=== PATIENT | female | born 1955 | race Caucasian/White ===

== ENCOUNTER 2016-10-06 19:55 | Emergency (ER) | payer MEDICARE, OTHER ==
[2016-10-06] MEDS ORDERED: KETOROLAC TROMETHAMINE 30 MG/ML VIAL IV ONE (20:42)
[2016-10-06] MEDS ORDERED: NORMAL SALINE 1,000 ML IV ONE (20:42)
[2016-10-06] MEDS ORDERED: ONDANSETRON HCL/PF 2 MG/ML VIAL IV ONE (20:43)
[2016-10-06 20:45] LABS: Urine Appearance Clear; Urine Bilirubin Negative (NEGATIVE); Urine Blood Negative /ul (NEGATIVE); Urine Color Yellow; Urine Ketone Negative (NEGATIVE); Urine Nitrite Negative (NEGATIVE); Urine Protein Negative (NEGATIVE); Urine Specific Gravity 1.025 SP.GR. (1.005-1.010); Urine Urobilinogen Normal (NORMAL); Urine pH 6.5 pH (5.0-7.0)
--- OUTSIDE RECORDS SUMMARY | 2016-10-06 20:45 | XMS REPORT | Continuity of Care Document ---
:1955 Author Organization [facility] ([facility]) Address [address] [place] [address] Phone [phone] Care Team Providers Name Role Phone Jam Sam Primary Care Provider [phone] Source Comments This disclosure is being made pursuant to the Care Everywhere program, applicable federal and state laws, and may not contain all informaitonavailable regarding this patient.[facility] ([facility]) Active Allergies and Adverse Reactions Allergen Noted Date Severity Reactions Comments Ciprofloxacin Pruritus Current Medications Not on file Active Problems Problem Noted Date Pain in joint, ankle and foot 01/21/2008 Knee joint replacement by other means 02/19/2007 Tobacco use disorder 01/12/2007 Difficulty in walking(719.7) 01/10/2007 Primary localized osteoarthrosis, lower leg 01/04/2005 Pain in joint, lower leg 11/19/2004 Social History Tobacco Use Types Packs/Day Years Used Date Never Assessed Last Filed Vital Signs Vital Sign Reading Time Taken Blood Pressure 115/64 01/21/2008 10:30 AM CDT Pulse 74 01/21/2008 10:30 AM CDT Temperature 35.3 C (95.54 F) 01/21/2008 10:30 AM CDT Respiratory Rate 18 01/12/2007 8:00 AM CDT Height 1.685 m (5' 6.33") 01/21/2008 10:30 AM CDT Weight 101.497 kg (223 lb 12.2 oz) 01/21/2008 10:30 AM CDT Body Mass Index 35.75 01/21/2008 10:30 AM CDT Oxygen Saturation - - Plan of Care Health Maintenance Due Date Last Done Comments HCV Screening 1955 Hepatitis B Vaccine (1 of 3 - Primary Series) 1955 Tdap Vaccine 02/15/1964 Lipid Disorder Screening 1971 Td Vaccine 1971 Cervical Cancer Screening 1983 Mammogram 1993 Colonoscopy 2003 Zoster Vaccine 2013 Influenza Vaccine: Seasonal (#1) 02/19/2016 Results from Last 3 Months Not on file
[2016-10-06 20:46] LABS: Urine Bacteria None Seen; Urine RBC 0-5 /hpf (0-5); Urine WBC None Seen /hpf (0-5)
--- NOTE | 2016-10-06 20:52 | ERNOTE ---
Back Pain ER HPI Date of Service: 10/06/16 Presenting Symptoms: other - right lower flank pain radiating into right groin Time Seen by Provider: 10/06/16 20:31 Source: patient Exam Limitations: no limitations Immunizations: IMMUNIZATION HX Immunizations Up to Date Yes History of Influenza Vaccine Yes Hx Pneumococcal Vaccination Yes Allergies/Adverse Reactions: Allergies ciprofloxacin HCl [From Cipro] Allergy (Mild, Verified 05/27/16 08:53) hot and itching Home Medications: HOME MEDICATIONS Benazepril HCl [Lotensin] 40 mg PO DAILY 01/30/13 [Last Taken 03/05/14 08:00] DULoxetine HCL [Cymbalta] 60 mg PO DAILY 01/30/13 [Last Taken 03/05/14 08:00] amLODIPine BESYLATE [Norvasc] 5 mg PO DAILY 01/30/13 [Last Taken 03/05/14 08:00] Cholecalciferol (Vitamin D3) [Vitamin D3] 1,000 unit PO BID 07/09/13 [Last Taken 03/05/14 20:00] Simvastatin 40 mg PO DAILY 07/09/13 [Last Taken 03/05/14 20:00] Cyclosporine [Restasis] 1 each OP BID 03/05/14 [Last Taken 03/05/14 20:00] Pramipexole Di-HCl [Mirapex] 0.5 mg PO DAILY 03/05/14 [Last Taken 03/05/14 08:00 ] Acetaminophen [Tylenol] 650 mg PO Q4H PRN #0 tablet 03/07/14 [Last Taken Unknown ] Omeprazole [Prilosec] 20 mg PO BID #0 03/07/14 [Last Taken 03/05/14 08:00] metFORMIN HCL [Glucophage] 500 mg PO BID 03/07/14 [Last Taken 05/25/16] Pregabalin [Lyrica] 75 mg PO TID 12/21/14 [Last Taken Unknown] Fluticasone/Salmeterol [Advair 250-50 Diskus] 1 puff IH BID 05/24/16 [Last Taken Unknown] Topiramate [Topamax] 100 mg PO DAILY 05/24/16 [Last Taken Unknown] Diclofenac Sodium 75 mg PO DAILY 05/25/16 [Last Taken Unknown] Dicyclomine HCl [Bentyl] 20 mg PO TID PRN 05/25/16 [Last Taken Unknown] Hydrocodone/Acetaminophen [Hydrocodon-Acetaminoph 7.5-325] 1 each PO Q6H PRN 12/03 [Last Taken Unknown] Levothyroxine Sodium [Synthroid] 200 mcg PO DAILY 05/25/16 [Last Taken Unknown] Cyclobenzaprine HCl [Flexeril] 10 mg PO TID PRN #30 tab 10/06/16 [Last Taken Unknown] - Pain Score Pain Score #1 Pain Score: 8 Narrative: This is a 61 year old female with known history of DM2 currently on Metformin BID and HTN who recently had appendix removed May 2016 [facility] with complaints of pain right lower flank area radiating into right groin x 1 week. States pain has been progressively getting worse. Patient denies NVD, fever, chills yet complains of pain, urinary frequency and odor. States pain worsens with movement and has attempted ice, heat, [place] (used for her chronic pain), Tylenol and ice hot without relief. Date (Duration): 09/29/16 Timing: Reports: constant, getting worse Quality/Severity: Reports: moderate, aching, dullness, throbbing Location of pain: Reports: lower back, other - radiating down into right groin Activities at Onset: Reports: none Recent Injury?: Reports: no Possible Precipitating Factor: Reports: none Modifying Factors - (Improves): Reports: nothing Modifying Factors - (Worsens): Reports: other - movement and activity Associated Symptoms: Reports: problems urinating. Denies: fever/chills, sweating, constipation/incontinence, nausea/vomiting, difficulty walking, lightheadedness, numbess/weakness in legs Review of Systems - Review of Systems Constitutional: Present: no symptoms reported. Absent: recent illness, fever, chills, diaphoresis, weakness, fatigue, malaise EYE: Present: no symptoms reported ENT: Present: no symptoms reported Respiratory: Present: no symptoms reported. Absent: shortness of breath, cough Cardiology: Present: no symptoms reported. Absent: chest pain, palpitations, syncope Gastrointestinal/Abdominal: Absent: nausea, vomiting, diarrhea, constipation, abdominal pain, eating less, drinking less Genitourinary: Present: frequency, other - worsening odor. Absent: pain, dysuria, hematuria, decreased urinary output Musculoskeletal: Present: back pain. Absent: muscle pain, muscle stiffness, neck pain, joint pain, joint swelling Skin: Present: no symptoms reported. Absent: rash, dryness, lesions Neurological: Present: no symptoms reported Endocrine: Present: no symptoms reported Hematologic/Lymphatic: Present: no symptoms reported - Patient's Past Medical History Patient History - Medical: Diabetes Type 2, GERD, Hypothyroidism, UTI'S Patient History - Cardiac/Respiratory: Asthma, Bronchitis, COPD, Hypertension, Hyperlipidemia Patient History - Cancer: No Hx of Cancer Patient History - Surgical Procedures: Cholecystectomy, Total Knee Replacement, Other Patient History - Other: None - Family History Mother Family History - Medical: No pertinent hx Family History - Cardiac/Respiratory: No pertinent hx Father Family History - Medical: No pertinent hx Family History - Cardiac/Respiratory: No pertinent hx - Social History Living Situations: alone Abuse History: No History of abuse Psych History: No pertinent hx Does anyone smoke in the home?: Yes Smoking Status: Former smoker Have you smoked in the past 12 months: Yes Do you dip or chew tobacco: No Patient requests Smoking Cessation Consult: No Initiate information on Smoking Cessation: No Alcohol Use: none Drug Use: none - Immunizations Immunizations Up to Date: Yes Hx Pneumococcal Vaccination: Yes History of Influenza Vaccine: Yes Physical Exam - Physical Exam General Appearance: Present: wd/wn, alert, no apparent distress Eye Exam: Normal inspection: bilateral, PERRL: bilateral Neck: Present: normal inspection, nontender Respiratory: Present: no respiratory distress, normal breath sounds, no accessory muscle use, chest nontender, lungs clear Cardiovascular/Chest: Present: regular rate, rhythm, no murmur, normal peripheral pulses Peripheral Pulses: N=norm/S=strong/W=weak/B=bound/A=absent: Radial (R): Normal, Radial (L): Normal Gastrointestinal/Abdominal: Present: normal bowel sounds, nontender, nondistended, soft, no organomegaly Rectal Exam: Present: deferred Back Exam: Present: normal inspection, normal range of motion, no vertebral tenderness, CVA tenderness (R) Extremity Exam: Present: normal inspection, non-tender, normal range of motion, no edema Neurological Exam: Present: alert, oriented, normal mood/affect, no motor/ sensory deficits Skin Exam: Present: normal color, warm/dry Lymphatic Exam: Present: no adenopathy ED Progress - Results and Orders Patient's Lab Results:: I have reviewed the patient's lab results. - Vital Signs Patient's Vital Signs:: I have reviewed the patient's vital signs. Vital Signs: Vital Signs 10/06/16 20:10 Temperature 36.7 C Pulse Rate 97 Respiratory 18 Rate Blood Pressure 141/79 O2 Sat by Pulse 97 Oximetry - CT/Ultrasound CT/Ultrasound Narrative: CT abdomen and pelvis negative. Diverticulosis without evidence of diverticulitis, no kidney stone - Progress/Reassessment Chief Complaint: Back Pain Progress:: Improved Progress Note-Subjective: 10/06/16 21:[address] scan. No change in condition, awaiting for RN to administer pain medications 10/06/16 22:03 Patient states pain has lessened. Departure Clinical Impression: Lumbago with sciatica, right side Qualifiers: Chronicity: acute Back pain laterality: right Qualified Code(s): M54.41 - Lumbago with sciatica, right side - Departure Disposition: Home self-care Condition: Good Instructions: Back Pain, Adult, [id number], Muscle Strain, [id number] Additional Instructions: Continue with Ibuprofen 800 mg as previously prescribed. Follow up with physician for worsening pain unrelieved by Ibuprofen or Flexeril Referrals: Manuel Valencia DO [Primary Care Provider] - Prescriptions: Cyclobenzaprine HCl [Flexeril] 10 mg PO TID PRN #30 tab PRN Reason: MUSCLE SPASMS
[2016-10-06 20:54] LABS: Hematocrit 40.1 % (37.0-47.0); Hemoglobin 12.6 gm/dL (12.5-16.0); Mean Cell Volume 85.9 fl (78-100); Mean Corpuscular Hgb Conc 31.4 g/dl (32-36); Mean Platelet Volume 8.9 fl (6.0-9.5); Neutrophil % 60.8 % (42-75.0); Platelet Count 340 K/mm3 (150-450); Red Blood Count 4.67 M/mm3 (4.2-5.4); Red Cell Distribution Width 15.5 % (11.5-14.0); White Blood Count 9.9 K/mm3 (4.0-10.5)
[2016-10-06 21:09] LABS: Albumin * 3.6 gm/dl (3.4-5.0); Bilirubin, Total 0.2 mg/dL (0.0-1.1); Ca. Corrected For Albumin 9.3 mg/dL (8.4-10.2); Calcium * 9.3 mg/dL (7.9-10.9); Carbon Dioxide 24.9 mmol/L (24-32.6); Potassium 3.9 mmol/L (3.4-4.6); Total Protein 7.1 gm/dL (6.2-8.2)
[2016-10-06] MEDS ORDERED: KETOROLAC TROMETHAMINE 30 MG/ML VIAL ONE (21:24)
[2016-10-06] MEDS ORDERED: ONDANSETRON HCL/PF 2 MG/ML VIAL ONE (21:25)
[2016-10-06 21:41] VITALS: BP 158/88
[2016-10-06] MEDS ORDERED: CYCLOBENZAPRINE HCL 10 MG TABLET PO ONE (22:03)
[2016-10-06] MEDS ORDERED: CYCLOBENZAPRINE HCL 10 MG TABLET ONE (22:08)
== END 2016-10-06 22:36 | disposition home or self-care (01) ==
LOC: ER 19:55
DX: M54.41 Lumbago with sciatica, right side (principal); E11.9 Type 2 diabetes mellitus without complications; I10 Essential (primary) hypertension; E78.5 Hyperlipidemia, unspecified; E03.9 Hypothyroidism, unspecified; K21.9 Gastro-esophageal reflux disease without esophagitis

== ENCOUNTER 2016-11-18 07:38 | Day surgery (SDC) | payer MEDICARE, OTHER ==
[~2016-11-18 07:38] MED LIST: RINGERS SOLUTION,LACTATED 1,000 ML IV PRN
--- OUTSIDE RECORDS SUMMARY | 2016-11-18 07:42 | XMS REPORT | Continuity of Care Document ---
:1955 Author Organization [facility] ([facility]) Address [address] [place] [address] Phone [phone] Care Team Providers Name Role Phone Jam Sam Primary Care Provider [phone] Source Comments This disclosure is being made pursuant to the Care Everywhere program, applicable federal and state laws, and may not contain all informaitonavailable regarding this patient.[facility] ([facility]) Active Allergies and Adverse Reactions Allergen Noted [...]
[2016-11-18] MEDS ORDERED: RINGERS SOLUTION,LACTATED 1,000 ML IV ONE (08:11)
[2016-11-18] MEDS ORDERED: RINGERS SOLUTION,LACTATED 1,000 ML IV PRN (09:54)
[2016-11-18 10:53] VITALS: BP 162/89
--- NOTE | 2016-11-18 17:37 | OR ---
Operative Report - Dictated Report Narrative: OPERATIVE REPORT DATE OF OPERATION: 11/18/2016 PREOPERATIVE DIAGNOSIS: No recent dedicated colon studies. Diarrhea. POSTOPERATIVE DIAGNOSIS: Diverticulosis OPERATION: Colonoscopy SURGEON: Nasir Marin MD ANESTHESIA: KEVIN Rios CRNA INDICATIONS FOR PROCEDURE: The patient is a 61-year-old female referred by Dr. Valencia. The patient's last colonoscopy was in 2007. There is no family history of colon cancer. She has chronic loose stools managed with cholestyramine. FINDINGS: Diverticulosis, somewhat capacious colon otherwise normal exam to the cecum NARRATIVE OF PROCEDURE: The patient was identified in the holding area, and prior to the administration of anesthetic, a multidisciplinary timeout was observed. With the patient in the left lateral position and after the administration of intravenous sedation, the perineum was inspected. There was mild perianal maceration however no evidence of pilonidal disease or rosy skin breakdown. The external appearance of the anus was normal. Sphincter tone was good. The flexible fiberoptic colonoscope was inserted into the rectum which was insufflated with air. The rectal mucosa and submucosal vascular pattern appeared normal, the prep was seen to be complete. The scope was advanced through the sigmoid colon, which contained several small scattered non-impacted noninflamed diverticular openings. The scope was advanced up the descending colon, and around the splenic flexure where the triangular haustral architecture of the transverse colon was seen. The scope was advanced across the transverse colon, around the hepatic flexure to the cecum, where the confluence of tenia and the ileocecal valve were identified. The mucosa at this level appeared normal. The scope was then slowly withdrawn in a circular fashion so that all aspects of colonic mucosa were inspected. The colon was somewhat capacious in character but normal in course. The haustral architecture appeared well preserved throughout with no evidence of external compression. The mucosa and submucosal vascular pattern appeared normal, specifically there was no gross evidence to suggest colitis or inflammatory bowel disease and no AV malformations were seen. The diverticulosis was mild in degree confined primarily to the sigmoid colon. No polyps were encountered. The scope was gradually withdrawn to the level of the rectum. As much insufflated air as possible was removed. The scope was withdrawn from the patient and the procedure terminated. The patient tolerated the anesthetic and procedure well without complication and was transferred back to the ambulatory surgery area awake and in stable condition. The patient remained stable throughout a period of postoperative observation. She denied abdominal discomfort, was able to tolerate by mouth intake, and was up without assistance. I shared the operative findings with the patient and she was given copies of the photographs which appear in the medical record. She was discharged home with instructions not to engage in hazardous activity today , but may resume normal activity tomorrow, and advance diet as tolerated. She is to continue those medications as listed in the history and physical exam. RECOMMENDATION: Colon surveillance in 10 years depending upon findings and symptoms. Reviewed and electronically signed
== END 2016-11-18 07:39 | disposition home or self-care (01) ==
LOC: AMB 07:38
PROVIDERS: ATTEND Surgery
PROC: 0DJD8ZZ Inspection of Lower Intestinal Tract, Via Natural or Artificial Opening Endoscopic (ICD-10-PCS; principal; 2016-11-18 09:00)
DX: Z12.11 Encounter for screening for malignant neoplasm of colon (principal); K57.30 Diverticulosis of large intestine without perforation or abscess without bleeding; E11.9 Type 2 diabetes mellitus without complications; I10 Essential (primary) hypertension; E78.5 Hyperlipidemia, unspecified; E03.9 Hypothyroidism, unspecified; K58.9 Irritable bowel syndrome, unspecified; Z87.891 Personal history of nicotine dependence; Z68.38 Body mass index [BMI] 38.0-38.9, adult

== ENCOUNTER 2016-11-26 19:25 | Emergency (ER) | payer MEDICARE, OTHER ==
--- OUTSIDE RECORDS SUMMARY | 2016-11-26 20:13 | XMS REPORT | Continuity of Care Document ---
:1955 Author Organization [facility] ([facility]) Address [address] [place] [address] Phone [phone] Care Team Providers Name Role Phone Jam Sam Primary Care Provider [phone] Source Comments This disclosure is being made pursuant to the Care Everywhere program, applicable federal and state laws, and may not contain all informaitonavailable regarding this patient.[facility] ([facility]) Active Allergies and Adverse Reactions Allergen [...]
--- NOTE | 2016-11-26 20:15 | ERNOTE ---
Abdominal HPI - General Chief Complaint: Abdominal Pain Time Seen by Provider: 11/26/16 20:06 Source: patient Exam Limitations: no limitations - Immun/Allergies/Home Medications Immunizatons: IMMUNIZATION HX Immunizations Up to Date Yes History of Influenza Vaccine Yes Hx Pneumococcal Vaccination Yes Allergies/Adverse Reactions: Allergies ciprofloxacin HCl [From Cipro] Allergy (Mild, Verified 11/18/16 08:10) hot and itching Home Medications: HOME MEDICATIONS Benazepril HCl [Lotensin] 40 mg PO DAILY 01/30/13 [Last Taken 03/05/14 08:00] amLODIPine BESYLATE [Norvasc] 5 mg PO DAILY 01/30/13 [Last Taken 03/05/14 08:00] Cholecalciferol (Vitamin D3) [Vitamin D3] 50,000 unit PO Q7D 07/09/13 [Last Taken 03/05/14 20:00] Simvastatin 40 mg PO DAILY 07/09/13 [Last Taken 03/05/14 20:00] Cyclosporine [Restasis] 1 each OP BID 03/05/14 [Last Taken 03/05/14 20:00] Omeprazole [Prilosec] 20 mg PO BID #0 03/07/14 [Last Taken 03/05/14 08:00] metFORMIN HCL [Glucophage] 500 mg PO BID 03/07/14 [Last Taken 05/25/16] Pregabalin [Lyrica] 75 mg PO TID 12/21/14 [Last Taken Unknown] Fluticasone/Salmeterol [Advair 250-50 Diskus] 1 puff IH BID 05/24/16 [Last Taken 11/18/16 07:00] Topiramate [Topamax] 100 mg PO DAILY 05/24/16 [Last Taken Unknown] Diclofenac Sodium 75 mg PO DAILY 05/25/16 [Last Taken Unknown] Dicyclomine HCl [Bentyl] 20 mg PO TID PRN 05/25/16 [Last Taken Unknown] HYDROcodone/ACETAMINOPHEN [Hydrocodon-Acetaminoph 7.5-325] 1 each PO Q12H PRN [Last Taken Unknown] Cholestyramine (with Sugar) [Questran Powder] 4 gm PO BID 11/08/16 [Last Taken Unknown] Duloxetine HCl [Cymbalta] 60 mg PO BID 11/08/16 [Last Taken Unknown] Levothyroxine Sodium [Synthroid] 200 mcg PO DAILY 11/08/16 [Last Taken Unknown] Pramipexole Di-HCl [Pramipexole Dihydrochloride] 1 mg PO HS 11/08/16 [Last Taken Unknown] Cyclobenzaprine HCl [Flexeril] 10 mg PO TID PRN 11/26/16 [Last Taken Unknown] Nitrofurantoin Macrocrystal [Nitrofurantoin] 100 mg PO BID #6 capsule 11/27/16 [ Last Taken Unknown] - History of Present Illness Narrative: Pt reports low abdominal pain x 2 days. Had severe UTI 2 weeks ago and finished her antibiotics today. She believes she has gotten worse Timing: getting worse Quality: moderate Activities at Onset: none Associated Symptoms: Present: chest pain - right sided achy and sharp, shortness of breath. Absent: diaphoresis, fever/chills Prior Abdominal Problems: Present: similar symptoms Prior Treatment: Present: recently seen, treated by physician - UTI - Patient's Past Medical History Patient History - Medical: Diabetes Type 2, GERD, Hypothyroidism, UTI'S, Other Patient History - Cardiac/Respiratory: Asthma, Bronchitis, COPD, Hypertension, Hyperlipidemia Patient History - Cancer: No Hx of Cancer Patient History - Surgical Procedures: Cataracts, Cholecystectomy, Colonoscopy, D & C, EGD, Hysterectomy, Total Knee Replacement, Other Patient History - Other: None - Family History Mother Family History - Medical: , Arthritis Family History - Cardiac/Respiratory: Hypertension Family History - Cancer: No pertinent family hx Father Family History - Medical: , Arthritis Family History - Cardiac/Respiratory: CVA/Stroke, Hypertension Family History - Cancer: No pertinent family hx Brother Family History - Medical: , Diabetes Type 2, Other Family History - Cardiac/Respiratory: No pertinent hx Family History - Cancer: No pertinent family hx Grandfather-Maternal Family History - Medical: History Unknown Family History - Cardiac/Respiratory: History Unknown Family History - Cancer: History Unknown Grandfather-Paternal Family History - Medical: , History Unknown Family History - Cardiac/Respiratory: History Unknown Family History - Cancer: History Unknown Grandmother-Maternal Family History - Medical: , History Unknown Family History - Cardiac/Respiratory: History Unknown Family History - Cancer: Esophageal Grandmother-Paternal Family History - Medical: , History Unknown Family History - Cardiac/Respiratory: History Unknown Family History - Cancer: History Unknown Sister Family History - Medical: Other Family History - Cardiac/Respiratory: No pertinent hx Family History - Cancer: No pertinent family hx - Social History Living Situations: alone Abuse History: No History of abuse Psych History: Hx of Depression Does anyone smoke in the home?: Yes Smoking Status: Former smoker Have you smoked in the past 12 months: Yes Do you dip or chew tobacco: No Patient requests Smoking Cessation Consult: No Initiate information on Smoking Cessation: No Alcohol Use: none Drug Use: other - Immunizations Immunizations Up to Date: Yes Hx Pneumococcal Vaccination: Yes History of Influenza Vaccine: Yes ED Progress - Vital Signs Vital Signs: Vital Signs 11/26/16 19:25 Temperature 36.5 C Pulse Rate 108 H Respiratory 18 Rate Blood Pressure 157/60 O2 Sat by Pulse 96 Oximetry - Progress/Reassessment Chief Complaint: Abdominal Pain Departure - Departure Clinical Impression: UTI (urinary tract infection), bacterial Disposition: Home Follow Up Needed Condition: Good Instructions: Urinary Tract Infection, Adult, [id number] Referrals: Jackeline Lock, COIL [employer]TER [Primary Care Provider] - Prescriptions: Nitrofurantoin Macrocrystal [Nitrofurantoin] 100 mg PO BID #6 capsule
[2016-11-26 20:27] LABS: Hematocrit 38.3 % (37.0-47.0); Hemoglobin 11.9 gm/dL (12.5-16.0); Mean Cell Volume 85.5 fl (78-100); Mean Corpuscular Hemoglobin 26.6 pg (27-31); Mean Corpuscular Hgb Conc 31.1 g/dl (32-36); Neutrophil # 6.7 K/mm3 (1.3-6.0); Neutrophil % 65.5 % (42-75.0); Platelet Count 369 K/mm3 (150-450); Red Blood Count 4.48 M/mm3 (4.2-5.4); Red Cell Distribution Width 14.6 % (11.5-14.0); White Blood Count 10.3 K/mm3 (4.0-10.5)
[2016-11-26 20:40] LABS: Albumin * 3.1 gm/dl (3.4-5.0); Anion Gap 14.9 mmol/L (6.8-13.8); BUN/Creatinine Ratio 15.6 (9.0-21.6); Bilirubin, Total 0.2 mg/dL (0.0-1.1); Ca. Corrected For Albumin 9.7 mg/dL (8.4-10.2); Calcium * 9.3 mg/dL (7.9-10.9); Potassium 3.9 mmol/L (3.4-4.6); Total Protein 6.9 gm/dL (6.2-8.2)
[2016-11-26 20:44] LABS: Urine Bilirubin Negative (NEGATIVE); Urine Blood Negative /ul (NEGATIVE); Urine Ketone Negative (NEGATIVE); Urine Nitrite Negative (NEGATIVE); Urine Protein Negative (NEGATIVE); Urine Urobilinogen Normal (NORMAL); Urine pH 6.5 pH (5.0-7.0)
[2016-11-26 21:02] LABS: Urine Appearance Clear; Urine Bacteria 1+; Urine Color Yellow; Urine RBC None Seen /hpf (0-5); Urine WBC 0-5 /hpf (0-5)
[2016-11-26] MEDS ORDERED: NALBUPHINE HCL 20 MG/ML AMPUL IV ONE (23:15)
[2016-11-26] MEDS ORDERED: ONDANSETRON HCL/PF 2 MG/ML VIAL IV ONE (23:15)
[2016-11-26] MEDS ORDERED: ONDANSETRON HCL/PF 2 MG/ML VIAL ONE (23:28)
[2016-11-26] MEDS ORDERED: NALBUPHINE HCL 20 MG/ML AMPUL ONE (23:28)
[2016-11-27] MEDS ORDERED: NITROFURANTOIN/NITROFURAN MAC 100 MG CAPSULE ONE (01:13)
[2016-11-27 01:26] VITALS: BP 138/72
[2016-11-27] MEDS ORDERED: NITROFURANTOIN/NITROFURAN MAC 100 MG CAPSULE PO SCH (09:00)
== END 2016-11-27 01:20 | disposition home or self-care (01) ==
LOC: ER 19:25
DX: N39.0 Urinary tract infection, site not specified (principal); A49.9 Bacterial infection, unspecified; Z87.440 Personal history of urinary (tract) infections; Z87.891 Personal history of nicotine dependence; E11.9 Type 2 diabetes mellitus without complications; K21.9 Gastro-esophageal reflux disease without esophagitis; E03.9 Hypothyroidism, unspecified; J45.909 Unspecified asthma, uncomplicated; J44.9 Chronic obstructive pulmonary disease, unspecified; I10 Essential (primary) hypertension; E78.5 Hyperlipidemia, unspecified

== ENCOUNTER 2016-12-16 04:09 | Inpatient (IN) | payer MEDICARE, OTHER ==
--- OUTSIDE RECORDS SUMMARY | 2016-12-16 04:45 | XMS REPORT | Continuity of Care Document ---
:1955 Author Organization [facility] ([facility]) Address [address] [place] [place] [address] Phone [phone] Care Team Providers Name Role Phone Jam Sam Primary Care Provider [phone] Source Comments This disclosure is being made pursuant to the Care Everywhere program, applicable federal and state laws, and may not contain all informaitonavailable regarding this patient.[facility] ([facility]) Active Allergies and Adverse Reactions Allergen [...]
[2016-12-16] MEDS ORDERED: DILTIAZEM HCL 5 MG/ML VIAL IV ONE ×4 (05:09→06:27)
[2016-12-16 05:15] LABS: Hematocrit 40.1 % (37.0-47.0); Hemoglobin 12.5 gm/dL (12.5-16.0); Mean Cell Volume 85.7 fl (78-100); Mean Corpuscular Hemoglobin 26.7 pg (27-31); Mean Corpuscular Hgb Conc 31.2 g/dl (32-36); Mean Platelet Volume 8.9 fl (6.0-9.5); Neutrophil # 14.1 K/mm3 (1.3-6.0); Platelet Count 332 K/mm3 (150-450); Red Blood Count 4.68 M/mm3 (4.2-5.4); White Blood Count 18.1 K/mm3 (4.0-10.5)
[2016-12-16 05:25] LABS: Prothrombin Time (Patient) 10.1 Seconds (9.4-11.4)
[2016-12-16 05:28] LABS: INR 0.97 INR (0.90-1.10); Partial Thrombolplastin Time 27.8 Seconds (24-32)
[2016-12-16 05:37] LABS: ALT 22 U/L (19-67); AST 13 U/L (0-48); Albumin * 2.9 gm/dl (3.4-5.0); Alkaline Phosphatase * 149 U/L (50-170); Anion Gap 12.4 mmol/L (6.8-13.8); BNP * 292 pg/mL (5-205); Bilirubin, Total 0.3 mg/dL (0.0-1.1); Blood Urea Nitrogen 12 mg/dL (3-23); Ca. Corrected For Albumin 9.2 mg/dL (8.4-10.2); Calcium * 8.6 mg/dL (7.9-10.9); Carbon Dioxide 27.2 mmol/L (24-32.6); Chloride 108 mmol/L (97-106); Glucose * 177 mg/dL (70-110); Potassium 3.6 mmol/L (3.4-4.6); Sodium 144 mmol/L (132-142); TSH * 0.255 uIU/mL (0.358-3.74); Total Protein 6.8 gm/dL (6.2-8.2); Troponin I Less than 0.017 ng/ml (0.00-0.10)
[2016-12-16] MEDS ORDERED: ENOXAPARIN SODIUM 100 MG/ML SYRG SC ONE ×2 (05:50→06:35)
--- NOTE | 2016-12-16 05:53 | ERNOTE ---
Dyspnea - Date Date of Service: 12/16/16 - General Presenting Symptoms: shortness of breath Source: patient, family Exam Limitations: no limitations - Immun/Allergies/Home Medications Immunizations: IMMUNIZATION HX Immunizations Up to Date Yes History of Influenza Vaccine Yes Hx Pneumococcal Vaccination Yes Allergies/Adverse Reactions: Allergies ciprofloxacin HCl [From Cipro] Allergy (Mild, Verified 11/18/16 08:10) hot and itching Home Medications: HOME MEDICATIONS Benazepril HCl [Lotensin] 40 mg PO DAILY 01/30/13 [Last Taken 03/05/14 08:00] amLODIPine BESYLATE [Norvasc] 5 mg PO DAILY 01/30/13 [Last Taken 03/05/14 08:00] Cholecalciferol (Vitamin D3) [Vitamin D3] 50,000 unit PO Q7D 07/09/13 [Last Taken 03/05/14 20:00] Simvastatin 40 mg PO DAILY 07/09/13 [Last Taken 03/05/14 20:00] Cyclosporine [Restasis] 1 each OP BID 03/05/14 [Last Taken 03/05/14 20:00] Omeprazole [Prilosec] 20 mg PO BID #0 03/07/14 [Last Taken 03/05/14 08:00] metFORMIN HCL [Glucophage] 500 mg PO BID 03/07/14 [Last Taken 05/25/16] Pregabalin [Lyrica] 75 mg PO TID 12/21/14 [Last Taken Unknown] Fluticasone/Salmeterol [Advair 250-50 Diskus] 1 puff IH BID 05/24/16 [Last Taken 11/18/16 07:00] Topiramate [Topamax] 100 mg PO DAILY 05/24/16 [Last Taken Unknown] Diclofenac Sodium 75 mg PO DAILY 05/25/16 [Last Taken Unknown] Dicyclomine HCl [Bentyl] 20 mg PO TID PRN 05/25/16 [Last Taken Unknown] HYDROcodone/ACETAMINOPHEN [Hydrocodon-Acetaminoph 7.5-325] 1 each PO Q12H PRN [Last Taken Unknown] Cholestyramine (with Sugar) [Questran Powder] 4 gm PO BID 11/08/16 [Last Taken Unknown] Duloxetine HCl [Cymbalta] 60 mg PO BID 11/08/16 [Last Taken Unknown] Levothyroxine Sodium [Synthroid] 200 mcg PO DAILY 11/08/16 [Last Taken Unknown] Pramipexole Di-HCl [Pramipexole Dihydrochloride] 1 mg PO HS 11/08/16 [Last Taken Unknown] Cyclobenzaprine HCl [Flexeril] 10 mg PO TID PRN 11/26/16 [Last Taken Unknown] Amoxicillin/Potassium Clav [Augmentin 875-125 Tablet] 1 tab PO TID 12/16/16 [ Last Taken Unknown] - History of Present Illness Date (Duration): 12/16/16 Time (Timing): 05:04 Severity: moderate 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 Patient has not had symptoms similar to above. No known coronary artery disease but multiple cardiac risk factors including female greater than greater age 50, hypertension, diabetes, tobacco use and hyperlipidemia. Modifying Factors (Worsens): Reports: other Associated Symptoms-Dyspnea: Reports: other Prior Treatment: Reports: other Review of Systems - Review of Systems Constitutional: Present: no symptoms reported EYE: Present: no symptoms reported ENT: Present: no symptoms reported Respiratory: Present: shortness of breath Cardiology: Present: chest pain Gastrointestinal/Abdominal: Present: no symptoms reported Genitourinary: Present: no symptoms reported Musculoskeletal: Present: no symptoms reported Skin: Present: no symptoms reported Neurological: Present: no symptoms reported Endocrine: Present: no symptoms reported Hematologic/Lymphatic: Present: no symptoms reported Psych: Present: no symptoms reported - Patient's Past Medical History Patient History - Medical: Diabetes Type 2, GERD, Hypothyroidism, UTI'S, Other Patient History - Cardiac/Respiratory: Asthma, Bronchitis, COPD, Hypertension, Hyperlipidemia Patient History - Cancer: No Hx of Cancer Patient History - Surgical Procedures: Cataracts, Cholecystectomy, Colonoscopy, D & C, EGD, Hysterectomy, Total Knee Replacement, Other, Orthopedic Patient History - Other: None - Family History Mother Family History - Medical: , Arthritis Family History - Cardiac/Respiratory: Hypertension Family History - Cancer: No pertinent family hx Father Family History - Medical: , Arthritis Family History - Cardiac/Respiratory: CVA/Stroke, Hypertension Family History - Cancer: No pertinent family hx Brother Family History - Medical: , Diabetes Type 2, Other Family History - Cardiac/Respiratory: No pertinent hx Family History - Cancer: No pertinent family hx Grandfather-Maternal Family History - Medical: History Unknown Family History - Cardiac/Respiratory: History Unknown Family History - Cancer: History Unknown Grandfather-Paternal Family History - Medical: , History Unknown Family History - Cardiac/Respiratory: History Unknown Family History - Cancer: History Unknown Grandmother-Maternal Family History - Medical: , History Unknown Family History - Cardiac/Respiratory: History Unknown Family History - Cancer: Esophageal Grandmother-Paternal Family History - Medical: , History Unknown Family History - Cardiac/Respiratory: History Unknown Family History - Cancer: History Unknown Sister Family History - Medical: Other Family History - Cardiac/Respiratory: No pertinent hx Family History - Cancer: No pertinent family hx - Social History Living Situations: alone Abuse History: No History of abuse Psych History: Hx of Depression Does anyone smoke in the home?: Yes Smoking Status: Never smoker Alcohol Use: none Drug Use: none - Immunizations Immunizations Up to Date: Yes Hx Pneumococcal Vaccination: Yes History of Influenza Vaccine: Yes Physical Exam - Physical Exam General Appearance: Present: wd/wn, alert, moderate distress Eye Exam: Normal inspection: bilateral - normal ophthalmologic exam today, PERRL : bilateral, EOMI: bilateral Ears, Nose, Throat: Present: normal ENT inspection, normal pharynx Neck: Present: normal inspection, nontender Respiratory: Present: no accessory muscle use, lungs clear, wheezing Cardiovascular/Chest: Present: tachycardia, irregularly irregular Peripheral Pulses: N=norm/S=strong/W=weak/B=bound/A=absent: Carotid (R): Normal , Carotid (L): Normal, Radial (R): Normal, Radial (L): Normal, Dorsalis-pedis (R ): Normal, Dorsalis-pedis (L): Normal Gastrointestinal/Abdominal: Present: normal bowel sounds, nontender, nondistended, soft, no organomegaly Rectal Exam: Present: deferred Back Exam: Present: normal inspection, normal range of motion, no CVA tenderness , no vertebral tenderness Extremity Exam: Present: normal inspection, non-tender, normal range of motion, pedal edema Neurological Exam: Present: alert, oriented, normal mood/affect, no motor/ sensory deficits Skin Exam: Present: normal color, warm/dry Lymphatic Exam: Present: no adenopathy ED Progress - Vital Signs Vital Signs: Vital Signs 12/16/16 04:19 Temperature 36.8 C Pulse Rate 98 Respiratory 18 Rate Blood Pressure 140/78 O2 Sat by Pulse 96 Oximetry - EKG EKG: atrial fibrillation, no ST T wave changes, other - EKG atrial fibrillation with rapid ventricular rate 120. No ST-T changes seen. QTc 470. EKG read: Reviewed by me - X-Ray X-Ray #2 X-Ray: chest - no consolidation, edema or masses noted. This is a preliminary read by myself. Interpretation: Interp. by me - Progress/Reassessment Chief Complaint: Dyspnea Departure Clinical Impression: Atrial fibrillation, Hyperthyroidism, COPD (chronic obstructive pulmonary disease), CHF (congestive heart failure) - Departure Condition: Good Additional Instructions: You will be admitted to observation. This will allow us to trend your heart enzymes and change you from IV to oral rate control medication. This will also allow us to treat your newly diagnosed CHF and Hyperthyroidism. Referrals: Jackeline Lock, [employer] [Primary Care Provider] -
[2016-12-16] MEDS: DILTIAZEM HCL 125 MG in DEXTROSE 5 % IN WATER 100 ML IV PRN ×6 (06:35→15:25)
[2016-12-16] MEDS ORDERED: FUROSEMIDE 10 MG/ML VIAL IV ONE (06:56)
[2016-12-16] MEDS ORDERED: FUROSEMIDE 10 MG/ML VIAL ONE ×2 (07:01→07:03)
--- OUTSIDE RECORDS SUMMARY | 2016-12-16 07:13 | XMS REPORT | Continuity of Care Document ---
:1955 Author Organization [facility] ([facility]) Address [address] [place] [address] Phone [phone] Care Team Providers Name Role Phone Jam Sam Primary Care Provider [phone] Source Comments This disclosure is being made pursuant to the Care Everywhere program, applicable federal and state laws, and may not contain all informaitonavailable regarding this patient.[facility] ([facility]) Active Allergies and Adverse Reactions Allergen [...]
[2016-12-16] MEDS: oxyCODONE HCL/ACETAMINOPHEN 1 TAB TABLET PO PRN (09:56)
[2016-12-16] MEDS: NITROGLYCERIN 0.4 MG/TAB BTL SL PRN ×6 (11:01→20:27)
[2016-12-16] MEDS: MORPHINE SULFATE 2 MG/ML DISP.SYRIN IV PRN ×2 (11:21→13:00)
[2016-12-16] MEDS: AMIODARONE HCL 200 MG TABLET PO SCH ×2 (14:29→20:06)
[2016-12-16] MEDS ORDERED: KETOROLAC TROMETHAMINE 30 MG/ML VIAL IV ONE (14:30)
[2016-12-16 20:25] LABS: Urine Appearance Clear; Urine Bilirubin Negative (NEGATIVE); Urine Blood 10 /ul (NEGATIVE); Urine Color Yellow; Urine Ketone Negative (NEGATIVE); Urine Nitrite Negative (NEGATIVE); Urine Protein Negative (NEGATIVE); Urine Urobilinogen Normal (NORMAL)
[2016-12-16 20:26] LABS: Urine Bacteria None Seen; Urine RBC 0-5 /hpf (0-5); Urine WBC None Seen /hpf (0-5)
[2016-12-16] MEDS ORDERED: METOPROLOL TARTRATE 1 MG/ML AMPUL IV ONE (20:36)
[2016-12-16] MEDS: ENOXAPARIN SODIUM 100 MG/ML SYRG SC SCH (21:03)
[2016-12-16 21:15] LABS: Albumin * 2.7 gm/dl (3.4-5.0); Anion Gap 15.3 mmol/L (6.8-13.8); BUN/Creatinine Ratio 9.6 (9.0-21.6); Bilirubin, Total 0.3 mg/dL (0.0-1.1); Ca. Corrected For Albumin 9.7 mg/dL (8.4-10.2); Carbon Dioxide 26.2 mmol/L (24-32.6); Magnesium 1.6 mg/dL (1.2-2.8); Potassium 3.5 mmol/L (3.4-4.6); Total Protein 6.8 gm/dL (6.2-8.2)
[2016-12-16] MEDS ORDERED: CYCLOBENZAPRINE HCL 10 MG TABLET PO PRN (21:51)
[2016-12-16] MEDS ORDERED: KETOROLAC TROMETHAMINE 30 MG/ML VIAL IV PRN (22:11)
[2016-12-16] MEDS: 0.5 NORMAL SALINE 1,000 ML IV PRN (22:24)
[2016-12-16] MEDS: PREGABALIN 75 MG CAPSULE PO SCH (22:37)
[2016-12-16] MEDS: FLUTICASONE/SALMETEROL 14 PUFF DISK.W.DEV IH SCH (22:37)
[2016-12-16] MEDS: METOPROLOL TARTRATE 25 MG TABLET PO SCH (22:37)
[2016-12-16] MEDS: DULoxetine HCL 30 MG CAPSULE.SA PO SCH (22:38)
--- NOTE | 2016-12-16 23:15 | HP ---
Chief Complaint - Chief Complaint Date of Service: 12/16/16 Time of Service: 10:15 Chief Complaint: Chest Pain, Shortness of breath, Back Pain History of Present Illness: Gertrude is a 61 yo female that reports sudden onset of chest pain, chest heaviness, shortness of breath, and palpitations this morning. She reports she has been having difficulty with back pain as well. She has an MRI scheduled this next week. She presented to the [facility] ER and was wound to be in atrial fibrillation with rapid ventricular response of 150. She was given IV diltiazem and placed on diltiazem drip. She has never had atrial fibrillation previously. She reports she has been under a lot of stress emotionally and stress from pain. - Patient's Past Medical History Patient History - Medical: Diabetes Type 2, GERD, Hypothyroidism, UTI'S Patient History - Cardiac/Respiratory: Asthma, Bronchitis, COPD, Hypertension, Hyperlipidemia Patient History - Cancer: No Hx of Cancer Patient History - Surgical Procedures: Cataracts, Cholecystectomy, Colonoscopy, D & C, EGD, Hysterectomy, Total Knee Replacement, Orthopedic Patient History - Other: None - Family History Mother Family History - Medical: , Arthritis Family History - Cardiac/Respiratory: Hypertension Family History - Cancer: No pertinent family hx Father Family History - Medical: , Arthritis Family History - Cardiac/Respiratory: CVA/Stroke, Hypertension Family History - Cancer: No pertinent family hx Brother Family History - Medical: , Diabetes Type 2, Other Family History - Cardiac/Respiratory: No pertinent hx Family History - Cancer: No pertinent family hx Grandfather-Maternal Family History - Medical: History Unknown Family History - Cardiac/Respiratory: History Unknown Family History - Cancer: History Unknown Grandfather-Paternal Family History - Medical: , History Unknown Family History - Cardiac/Respiratory: History Unknown Family History - Cancer: History Unknown Grandmother-Maternal Family History - Medical: , History Unknown Family History - Cardiac/Respiratory: History Unknown Family History - Cancer: Esophageal Grandmother-Paternal Family History - Medical: , History Unknown Family History - Cardiac/Respiratory: History Unknown Family History - Cancer: History Unknown Sister Family History - Medical: Other Family History - Cardiac/Respiratory: No pertinent hx Family History - Cancer: No pertinent family hx - Social History Living Situations: alone Abuse History: No History of abuse Psych History: Hx of Depression Does anyone smoke in the home?: Yes Smoking Status: Former smoker Have you smoked in the past 12 months: Yes Do you dip or chew tobacco: No Smoking Start Date: 05/20/16 Patient requests Smoking Cessation Consult: No Initiate information on Smoking Cessation: No Alcohol Use: none Drug Use: none - Immunizations Immunizations Up to Date: Yes Hx Pneumococcal Vaccination: Yes History of Influenza Vaccine: Yes Review Of Systems (GEN) - Review of Systems Generalized/Overall Review: Present: Weakness. Absent: Chills, Fever EENTM: Present: No Symptoms Reported Respiratory: Present: Shortness of Breath Cardiac: Present: Chest Pain, Palpitations Abdominal: Present: No Symptoms Reported Genitourinary: Present: No Symptoms Reported Musculoskeletal: Present: Joint Pain, Back Pain Neurological: Present: No Symptoms Reported Skin: Present: No Symptoms Reported Endocrine: Present: No Symptoms Reported Allergies/Adverse Reactions: Allergies Allergy/AdvReac Type Severity Reaction Status Date / Time ciprofloxacin HCl Allergy Mild hot and Verified 01/18/17 20:15 [From Cipro] itching Home Medications: HOME MEDICATIONS Benazepril HCl [Lotensin] 40 mg PO DAILY 01/30/13 [Last Taken 03/05/14 08:00] amLODIPine BESYLATE [Norvasc] 5 mg PO DAILY 01/30/13 [Last Taken 03/05/14 08:00] Cholecalciferol (Vitamin D3) [Vitamin D3] 50,000 unit PO Q7D 07/09/13 [Last Taken 03/05/14 20:00] Simvastatin 40 mg PO DAILY 07/09/13 [Last Taken 03/05/14 20:00] Cyclosporine [Restasis] 1 each OP BID 03/05/14 [Last Taken 03/05/14 20:00] Omeprazole [Prilosec] 20 mg PO BID #0 03/07/14 [Last Taken 03/05/14 08:00] metFORMIN HCL [Glucophage] 500 mg PO BID 03/07/14 [Last Taken 05/25/16] Pregabalin [Lyrica] 75 mg PO TID 12/21/14 [Last Taken Unknown] Fluticasone/Salmeterol [Advair 250-50 Diskus] 1 puff IH BID 05/24/16 [Last Taken 11/18/16 07:00] Topiramate [Topamax] 100 mg PO DAILY 05/24/16 [Last Taken Unknown] Dicyclomine HCl [Bentyl] 20 mg PO TID PRN 05/25/16 [Last Taken Unknown] HYDROcodone/ACETAMINOPHEN [Hydrocodon-Acetaminoph 7.5-325] 1 each PO Q12H PRN [Last Taken Unknown] Cholestyramine (with Sugar) [Questran Powder] 4 gm PO BID 11/08/16 [Last Taken Unknown] Duloxetine HCl [Cymbalta] 60 mg PO BID 11/08/16 [Last Taken Unknown] Pramipexole Di-HCl [Pramipexole Dihydrochloride] 1 mg PO HS 11/08/16 [Last Taken Unknown] Cyclobenzaprine HCl [Flexeril] 10 mg PO TID PRN 11/26/16 [Last Taken Unknown] Amiodarone HCl [Cordarone] 200 mg PO DAILY #30 tablet 12/19/16 [Last Taken Unknown] Aspirin [Aspir-Low] 81 mg PO DAILY #30 tablet. 12/19/16 [Last Taken Unknown] Ibuprofen 800 mg PO TID #90 tablet 12/19/16 [Last Taken Unknown] Levothyroxine Sodium [Synthroid] 175 mcg PO DAILY #30 tablet 12/19/16 [Last Taken Unknown] Metoprolol Tartrate [Lopressor] 100 mg PO BID #60 tablet 12/19/16 [Last Taken Unknown] Exam - Exam Vital Signs: Vital Signs - Last Taken Temp 37.2 C 12/16/16 19:00 Pulse 102 H 12/16/16 22:37 Resp 18 12/16/16 21:00 BP 150/85 12/16/16 22:37 Pulse Ox 95 12/16/16 21:00 Constitutional: Present: Alert, Oriented x3, Cooperative, Obese ENT Exam: Present: hearing grossly normal Eye Exam: bilateral eye: normal inspection Respiratory: Present: lungs clear, normal breath sounds Cardiovascular/Chest: Present: tachycardia, irregularly irregular Abdomen: Present: Normal bowel sounds, soft, nontender, nondistended, no rebound tenderness Skin Exam: Present: normal color, warm/dry, no cyanosis Eye contact: Present: cooperative, good eye contact, normal speech Diagnostic Studies: Abnormal Lab Results 12/16/16 12/16/16 Range/Units 20:12 20:26 Plasma Sodium 143 H (130-142) mmol/L Anion Gap 15.3 H (6.8-13.8) mmol/L Est GFR (Non-Af Amer) 51 L D (60-130) mL/min Random Glucose 247 H D (70-110) mg/dL Albumin 2.7 L (3.4-5.0) gm/dl Urine Blood 10 H (NEGATIVE) /ul Laboratory Results WBC 18.1 K/mm3 (4.0-10.5) H 12/16/16 05:10 RBC 4.68 M/mm3 (4.2-5.4) 12/16/16 05:10 Hgb 12.5 gm/dL (12.5-16.0) 12/16/16 05:10 Hct 40.1 % (37.0-47.0) 12/16/16 05:10 MCV 85.7 fl (78-100) 12/16/16 05:10 MCH 26.7 pg (27-31) L 12/16/16 05:10 MCHC 31.2 g/dl (32-36) L 12/16/16 05:10 RDW 15.0 % (11.5-14.0) H 12/16/16 05:10 Plt Count 332 K/mm3 (150-450) 12/16/16 05:10 MPV 8.9 fl (6.0-9.5) 12/16/16 05:10 Immature Gran % (Auto) 0.40 % (0.001-0.429) 12/16/16 05:10 Immature Gran # (Auto) 0.08 K/mm3 (0.000-0.0310) H 12/16/16 05:10 Neutrophils % 78.0 % (42-75.0) H 12/16/16 05:10 Lymphocytes % 14.5 % (20-51) L 12/16/16 05:10 Monocytes % 5.5 % (0.0-9) 12/16/16 05:10 Eosinophils % 1.3 % (0.0-3.0) 12/16/16 05:10 Basophils % 0.3 % (0.0-1.0) 12/16/16 05:10 Nucleated RBC % 0.0 k/mm3 (0-1) 12/16/16 05:10 Neutrophils # 14.1 K/mm3 (1.3-6.0) H 12/16/16 05:10 Lymphocytes # 2.6 k/mm3 (1.5-3.5) 12/16/16 05:10 Monocytes # 1.0 k/mm3 (0.0-1.0) 12/16/16 05:10 Eosinophils # 0.2 k/mm3 (0.0-0.7) 12/16/16 05:10 Absolute Basophils 0.1 k/mm3 (0.0-0.1) 12/16/16 05:10 PT 10.1 Seconds (9.4-11.4) 12/16/16 05:10 INR (Anticoag Therapy) 0.97 INR (0.90-1.10) 12/16/16 05:10 PTT ([place]) 27.8 Seconds (24-32) 12/16/16 05:10 Sodium 141 mmol/L (132-142) 12/16/16 20:26 Plasma Sodium 143 mmol/L (130-142) H 12/16/16 20:26 Potassium 3.5 mmol/L (3.4-4.6) 12/16/16 20:26 Chloride 103 mmol/L (97-106) 12/16/16 20:26 Carbon Dioxide 26.2 mmol/L (24-32.6) 12/16/16 20:26 Anion Gap 15.3 mmol/L (6.8-13.8) H 12/16/16 20:26 BUN 11 mg/dL (3-23) 12/16/16 20:26 Creatinine 1.14 mg/dL (0.4-1.4) 12/16/16 20:26 Est GFR (Non-Af Amer) 51 mL/min (60-130) L D 12/16/16 20:26 BUN/Creatinine Ratio 9.6 (9.0-21.6) 12/16/16 20:26 Random Glucose 247 mg/dL (70-110) H D 12/16/16 20:26 Calcium 9.0 mg/dL (7.9-10.9) 12/16/16 20:26 Calcium Adj for Albumin 9.7 mg/dL (8.4-10.2) 12/16/16 20:26 Phosphorus 4.0 mg/dL (2.2-4.2) 12/16/16 20:26 Magnesium 1.6 mg/dL (1.2-2.8) 12/16/16 20:26 Total Bilirubin 0.3 mg/dL (0.0-1.1) 12/16/16 20:26 AST 10 U/L (0-48) 12/16/16 20:26 ALT 20 U/L (19-67) 12/16/16 20:26 Alkaline Phosphatase 141 U/L (50-170) 12/16/16 20:26 Troponin I Less than 0.017 ng/ml (0.00-0.10) 12/16/16 12:55 B-Natriuretic Peptide 292 pg/mL (5-205) H 12/16/16 05:10 Total Protein 6.8 gm/dL (6.2-8.2) 12/16/16 20:26 Albumin 2.7 gm/dl (3.4-5.0) L 12/16/16 20:26 TSH 0.255 uIU/mL (0.358-3.74) L 12/16/16 05:10 Free T4 1.49 ng/dL (0.76-1.46) H 12/16/16 05:10 Urine Color Yellow 12/16/16 20:12 Urine Appearance Clear 12/16/16 20:12 Urine pH 6.0 pH (5.0-7.0) 12/16/16 20:12 Ur Specific [place] 1.010 SP.GR. (1.005-1.010) 12/16/16 20:12 Urine Protein Negative mg/dL (NEGATIVE) 12/16/16 20:12 Urine Glucose (UA) Negative mg/dL (NEGATIVE) 12/16/16 20:12 Urine Ketones Negative mg/dL (NEGATIVE) 12/16/16 20:12 Urine Blood 10 /ul (NEGATIVE) H 12/16/16 20:12 Urine Nitrate Negative (NEGATIVE) 12/16/16 20:12 Urine Bilirubin Negative mg/dl (NEGATIVE) 12/16/16 20:12 Urine Urobilinogen Normal EU/dl (NORMAL) 12/16/16 20:12 Ur Leukocyte Esterase Negative /ul (NEGATIVE) 12/16/16 20:12 Urine RBC 0-5 /hpf (0-5) 12/16/16 20:12 Urine WBC None seen /hpf (0-5) 12/16/16 20:12 Ur Epithelial Cells None seen /hpf (0-5) 12/16/16 20:12 Urine Bacteria None seen (NONE) 12/16/16 20:12 Urine Culture Comments No culture indicated 12/16/16 20:12 Assessment/Plan - Assessment/Plan (1) Atrial fibrillation with rapid ventricular response Assessment: Given diltiazem IV, will monitor heart rate. Unclear etiology. She has been having a lot of stress emotionally and pain lately and this may be the cause. Currently requiring Diltiazem drip to control rate. Will admit patient to acute inpatient status. Expect >2 midnights to control rate from atrial fibrillation. Will evaluate with labwork and echocardiogram. Problem: Acute (2) New onset atrial fibrillation Problem: Acute (3) Lumbar radicular pain Problem: Acute (4) Leukocytosis Problem: Acute
[2016-12-17] MEDS: DILTIAZEM HCL 125 MG in DEXTROSE 5 % IN WATER 100 ML IV PRN ×2 (00:03)
[2016-12-17] MEDS: AMIODARONE HCL 200 MG TABLET PO SCH ×4 (03:07→20:06)
[2016-12-17] MEDS: METOPROLOL TARTRATE 25 MG TABLET PO SCH ×3 (03:08→14:44)
[2016-12-17] MEDS ORDERED: HYDROcodone/ACETAMINOPHEN 5 ML UDC PO PRN (05:50)
[2016-12-17] MEDS: INSULIN LISPRO 100 UNITS/ML VIAL SC SCH ×4 (06:52→20:05)
[2016-12-17] MEDS: PANTOPRAZOLE SODIUM 20 MG TABLET.DR PO SCH ×2 (06:55→16:24)
[2016-12-17] MEDS: ENOXAPARIN SODIUM 100 MG/ML SYRG SC SCH (08:40)
[2016-12-17] MEDS: CHOLESTYRAMINE/SUCROSE 4 GM PACKET PO SCH ×2 (08:40→20:06)
[2016-12-17] MEDS: FLUTICASONE/SALMETEROL 14 PUFF DISK.W.DEV IH SCH ×2 (08:41→20:05)
[2016-12-17] MEDS: PREGABALIN 75 MG CAPSULE PO SCH ×3 (08:41→16:24)
[2016-12-17] MEDS: DULoxetine HCL 30 MG CAPSULE.SA PO SCH ×2 (08:41→20:06)
[2016-12-17 08:49] LABS: Hematocrit 40.4 % (37.0-47.0); Hemoglobin 12.5 gm/dL (12.5-16.0); Mean Cell Volume 85.2 fl (78-100); Mean Corpuscular Hemoglobin 26.4 pg (27-31); Mean Corpuscular Hgb Conc 30.9 g/dl (32-36); Mean Platelet Volume 9.1 fl (6.0-9.5); Neutrophil # 9.5 K/mm3 (1.3-6.0); Neutrophil % 73.8 % (42-75.0); Platelet Count 350 K/mm3 (150-450); Red Blood Count 4.74 M/mm3 (4.2-5.4); Red Cell Distribution Width 14.8 % (11.5-14.0); White Blood Count 12.8 K/mm3 (4.0-10.5)
[2016-12-17] MEDS ORDERED: metFORMIN HCL 500 MG TABLET PO SCH (09:00)
[2016-12-17] MEDS ORDERED: ERGOCALCIFEROL 50000 UNIT TABLET PO SCH (09:00)
[2016-12-17 09:01] LABS: Albumin * 2.6 gm/dl (3.4-5.0); Anion Gap 13.1 mmol/L (6.8-13.8); BUN/Creatinine Ratio 16.5 (9.0-21.6); Bilirubin, Total 0.3 mg/dL (0.0-1.1); Ca. Corrected For Albumin 9.8 mg/dL (8.4-10.2); Carbon Dioxide 27.6 mmol/L (24-32.6); Potassium 3.7 mmol/L (3.4-4.6); Total Protein 6.8 gm/dL (6.2-8.2)
[2016-12-17] MEDS: oxyCODONE HCL/ACETAMINOPHEN 1 TAB TABLET PO PRN ×3 (10:49→23:27)
[2016-12-17] MEDS: 0.5 NORMAL SALINE 1,000 ML IV PRN (10:50)
[2016-12-17] MEDS ORDERED: METOPROLOL TARTRATE 1 MG/ML AMPUL IV ONE (15:11)
[2016-12-17] MEDS ORDERED: METOPROLOL TARTRATE 25 MG TABLET PO ONE (15:15)
[2016-12-17] MEDS: MORPHINE SULFATE 2 MG/ML DISP.SYRIN IV PRN (15:39)
[2016-12-17] MEDS: METOPROLOL TARTRATE 50 MG TABLET PO SCH (20:05)
[2016-12-17] MEDS ORDERED: PRAMIPEXOLE DI-HCL 0.5 MG TABLET PO SCH (21:00)
--- NOTE | 2016-12-17 23:48 | PN ---
Subjective - Date and Time Seen Date: 12/17/16 Time: 12:30 Subjective Narrative: Patient continues to have low back pain and abdominal pain radiating into groin. No fever or chills. Heart rate remains tachycardic and in atrial fibrillation. Still requiring IV diltiazem drip. Objective - Vitals Vitals: Last Vital Signs Temp 36.6 C 12/17/16 23:03 Pulse 94 12/17/16 23:03 Resp 18 12/17/16 23:03 BP 118/71 12/17/16 23:03 Pulse Ox 96 12/17/16 23:03 - Abnormal Lab Findings Abnormal Lab Findings: Abnormal Lab Results 12/17/16 12/17/16 Range/Units 08:40 08:40 WBC 12.8 H D (4.0-10.5) K/mm3 MCH 26.4 L (27-31) pg MCHC 30.9 L (32-36) g/dl RDW 14.8 H (11.5-14.0) % Immature Gran % (Auto) 0.60 H (0.001-0.429) % Immature Gran # (Auto) 0.08 H (0.000-0.0310) K/mm3 Lymphocytes % 16.7 L (20-51) % Neutrophils # 9.5 H (1.3-6.0) K/mm3 Plasma Sodium 143 H (130-142) mmol/L Est GFR (Non-Af Amer) 58 L (60-130) mL/min Random Glucose 261 H (70-110) mg/dL Albumin 2.6 L (3.4-5.0) gm/dl - EKG/Xray Findings EKG: atrial fibrillation - Exam Constitutional: Present: Alert, Oriented x3, Cooperative ENT Exam: Present: hearing grossly normal Respiratory: Present: lungs clear, normal breath sounds Cardiovascular/Chest: Present: tachycardia, irregularly irregular Abdomen: Present: Normal bowel sounds, soft, nontender, nondistended Assessment/Plan - Problems/Diagnosis (1) Atrial fibrillation with rapid ventricular response Problem: Acute Narrative: Rate improved with IV diltiazem, but still requiring IV diltizem. Will add amiodarone oral for improved control of rate. (2) New onset atrial fibrillation Problem: Acute (3) Lumbar radicular pain Problem: Acute (4) Leukocytosis Problem: Acute
[2016-12-18] MEDS: 0.5 NORMAL SALINE 1,000 ML IV PRN ×2 (01:25→15:51)
[2016-12-18] MEDS: AMIODARONE HCL 200 MG TABLET PO SCH ×2 (02:34→08:40)
[2016-12-18] MEDS: MORPHINE SULFATE 2 MG/ML DISP.SYRIN IV PRN ×2 (02:34→19:29)
[2016-12-18] MEDS: METOPROLOL TARTRATE 50 MG TABLET PO SCH ×2 (02:34→08:43)
[2016-12-18] MEDS: PANTOPRAZOLE SODIUM 20 MG TABLET.DR PO SCH ×2 (06:43→17:04)
[2016-12-18] MEDS: INSULIN LISPRO 100 UNITS/ML VIAL SC SCH ×4 (06:49→20:48)
[2016-12-18] MEDS: DULoxetine HCL 30 MG CAPSULE.SA PO SCH ×2 (08:41→20:42)
[2016-12-18] MEDS: PREGABALIN 75 MG CAPSULE PO SCH ×3 (08:43→17:04)
[2016-12-18] MEDS: CHOLESTYRAMINE/SUCROSE 4 GM PACKET PO SCH ×2 (08:45→20:43)
[2016-12-18] MEDS: FLUTICASONE/SALMETEROL 14 PUFF DISK.W.DEV IH SCH ×2 (08:50→20:41)
[2016-12-18] MEDS ORDERED: ENOXAPARIN SODIUM 40 MG/0.4 ML SYRG SC SCH (09:00)
[2016-12-18] MEDS: oxyCODONE HCL/ACETAMINOPHEN 1 TAB TABLET PO PRN (13:22)
[2016-12-18] MEDS ORDERED: DILTIAZEM HCL 125 MG in DEXTROSE 5 % IN WATER 100 ML IV PRN ×2 (14:09)
[2016-12-18] MEDS ORDERED: oxyCODONE HCL/ACETAMINOPHEN 1 TAB TABLET PO PRN (14:09)
[2016-12-18] MEDS ORDERED: NITROGLYCERIN 0.4 MG/TAB BTL SL PRN (14:09)
[2016-12-18] MEDS ORDERED: CYCLOBENZAPRINE HCL 10 MG TABLET PO PRN (14:09)
[2016-12-18] MEDS ORDERED: HYDROcodone/ACETAMINOPHEN 5 ML UDC PO PRN (14:09)
[2016-12-18] MEDS: METOPROLOL TARTRATE 100 MG TABLET PO SCH (20:45)
[2016-12-18] MEDS ORDERED: PRAMIPEXOLE DI-HCL 0.5 MG TABLET PO SCH (21:00)
--- NOTE | 2016-12-18 23:13 | PN ---
Subjective - Date and Time Seen Date: 12/18/16 Time: 16:00 Subjective Narrative: Reporting abdominal pain, flank pain, back pain with radicular symptoms. Tachycardiac and still having atrial fibrillation. Objective - Vitals Vitals: Last Vital Signs Temp 37.2 C 12/18/16 23:02 Pulse 77 12/18/16 23:02 Resp 20 12/18/16 23:02 BP 116/59 12/18/16 23:02 Pulse Ox 94 12/18/16 23:02 - Exam Constitutional: Present: Alert, Oriented x3, Cooperative Respiratory: Present: lungs clear, normal breath sounds Cardiovascular/Chest: Present: tachycardia, irregularly irregular Abdomen: Present: Normal bowel sounds, soft, tender - bilateral lower quadrants Skin Exam: Present: normal color, warm/dry, no cyanosis Assessment/Plan - Problems/Diagnosis (1) Atrial fibrillation with rapid ventricular response Problem: Acute Narrative: Rate is improved converting diltiazem to oral, continue amiodarone. (2) New onset atrial fibrillation Problem: Acute (3) Lumbar radicular pain Problem: Acute (4) Leukocytosis Problem: Acute (5) Abdominal pain Problem: Acute Narrative: Having low back, flank pain, abdominal pain with radiation into groin. Potential for kidney stone. Will evaluate with CT scan of abdomen.
[2016-12-19] MEDS: MORPHINE SULFATE 2 MG/ML DISP.SYRIN IV PRN ×2 (01:40→05:48)
[2016-12-19] MEDS: 0.5 NORMAL SALINE 1,000 ML IV PRN (05:11)
[2016-12-19 05:38] LABS: Hematocrit 34.4 % (37.0-47.0); Hemoglobin 10.5 gm/dL (12.5-16.0); Mean Cell Volume 86.2 fl (78-100); Mean Corpuscular Hemoglobin 26.3 pg (27-31); Mean Corpuscular Hgb Conc 30.5 g/dl (32-36); Mean Platelet Volume 9.3 fl (6.0-9.5); Neutrophil # 6.6 K/mm3 (1.3-6.0); Neutrophil % 66.9 % (42-75.0); Platelet Count 336 K/mm3 (150-450); Red Blood Count 3.99 M/mm3 (4.2-5.4); Red Cell Distribution Width 14.9 % (11.5-14.0); White Blood Count 9.9 K/mm3 (4.0-10.5)
[2016-12-19 05:58] LABS: Albumin * 2.4 gm/dl (3.4-5.0); Anion Gap 12.3 mmol/L (6.8-13.8); BUN/Creatinine Ratio 13.9 (9.0-21.6); Bilirubin, Total 0.1 mg/dL (0.0-1.1); Ca. Corrected For Albumin 10.1 mg/dL (8.4-10.2); Calcium * 9.1 mg/dL (7.9-10.9); Carbon Dioxide 28.9 mmol/L (24-32.6); Potassium 4.2 mmol/L (3.4-4.6); Total Protein 6.4 gm/dL (6.2-8.2)
[2016-12-19] MEDS: INSULIN LISPRO 100 UNITS/ML VIAL SC SCH (06:15)
[2016-12-19] MEDS: PANTOPRAZOLE SODIUM 20 MG TABLET.DR PO SCH (06:28)
[2016-12-19 07:04] VITALS: BP 132/66
[2016-12-19] MEDS: METOPROLOL TARTRATE 100 MG TABLET PO SCH (08:34)
[2016-12-19] MEDS: FLUTICASONE/SALMETEROL 14 PUFF DISK.W.DEV IH SCH (08:35)
[2016-12-19] MEDS: DULoxetine HCL 30 MG CAPSULE.SA PO SCH (08:35)
[2016-12-19] MEDS: CHOLESTYRAMINE/SUCROSE 4 GM PACKET PO SCH (08:36)
[2016-12-19] MEDS: PREGABALIN 75 MG CAPSULE PO SCH (08:40)
[2016-12-19] MEDS ORDERED: ENOXAPARIN SODIUM 40 MG/0.4 ML SYRG SC SCH (09:00)
[2016-12-19] MEDS ORDERED: AMIODARONE HCL 200 MG TABLET PO SCH (09:00)
--- NOTE | 2016-12-19 09:21 | DS ---
(1) Atrial fibrillation with rapid ventricular response Diagnosis(s): Gertrude is a 61 yo female that was admitted with new onset atrial fibrillation with rapid ventricular rate. No clear etiology, she had been having a lot of emotional stress, a lot of low back pain adding to her stress, and thyroid was found to be a little low functioning. All of these could have contributed to her atrial fibrillation. Due to her tachycardia she was given IV diltiazem and ultimately required IV diltiazem drip. Rate improved but she still had difficulty controlling rate. She was started on Amiodarone 200mg q6hr PO and switched to oral diltiazem. Heart rate improved and she converted to normal sinus rhythm. She was continued on these medication and thyroid was increased from 175mcg to 200mcg daily. She continued to report low back pain, flank pain, and abdominal pain. She had a CT scan to evaluate for kidney stone vs pyelonephritis but the scan was overall normal. With her heart controlled she was discharged to home. She will have further outpatient testing and follow up that was previously scheduled to evaluate her low back pain and radicular symptoms. At discharge she went over for a previously scheduled outpatient MRI. She will follow up with Cardiology in regards to atrial fibrillation and whether her amiodarone can be discontinued in the future and potentially her cardizem as well. She was started on Aspirin for anticoagulation. Problem: Resolved (2) New onset atrial fibrillation Problem: Resolved (3) Lumbar radicular pain Problem: Acute (4) Leukocytosis Problem: Acute Procedures Performed: none Discharge Disposition: Home self care Disposition: Home self-care Condition: Good Discharge Diet: Consistent carbs Referrals: Jackeline Lock CNP [Primary Care Provider] - (Keep scheduled appointment) Brayan Lemus MD [Associate] - (Needs a new appointment with Cardiology, any provider, next available.) Problem Oriented Discharge Instructions to Patient/Family: Atrial Fibrillation , [id number] Additional Patient Instructions (free text): 1) Started on metoprolol, amiodarone, and aspirin. 2) Thyroid levels were too high, dose changed from 200 to 175mcg, need to recheck Thyroid bloodwork in 6 weeks. 3) Given a prescription for ibuprofen 800mg. Do not take diclofenac and ibuprofen. Use whichever works the best. Keep scheduled appointment with Jackeline Lock. Follow up with cardiology, Dr. Lemus on January 08 at 12:00 at [facility]. Prescriptions (Any new or edited meds): Amiodarone HCl [Cordarone] 200 mg PO DAILY #30 tablet Aspirin [Aspir-Low] 81 mg PO DAILY #30 tablet. Ibuprofen 800 mg PO TID #90 tablet Levothyroxine Sodium [Synthroid] 175 mcg PO DAILY #30 tablet Metoprolol Tartrate [Lopressor] 100 mg PO BID #60 tablet Complete Home Medications List: Complete Home Medication List: Benazepril HCl [Lotensin] 40 mg PO DAILY 01/30/13 amLODIPine BESYLATE [Norvasc] 5 mg PO DAILY 01/30/13 Cholecalciferol (Vitamin D3) [Vitamin D3] 50,000 unit PO Q7D 07/09/13 Simvastatin 40 mg PO DAILY 07/09/13 Cyclosporine [Restasis] 1 each OP BID 03/05/14 Omeprazole [Prilosec] 20 mg PO BID #0 03/07/14 metFORMIN HCL [Glucophage] 500 mg PO BID 03/07/14 Pregabalin [Lyrica] 75 mg PO TID 12/21/14 Fluticasone/Salmeterol [Advair 250-50 Diskus] 1 puff IH BID 05/24/16 Topiramate [Topamax] 100 mg PO DAILY 05/24/16 Dicyclomine HCl [Bentyl] 20 mg PO TID PRN 05/25/16 HYDROcodone/ACETAMINOPHEN [Hydrocodon-Acetaminoph 7.5-325] 1 each PO Q12H PRN Cholestyramine (with Sugar) [Questran Powder] 4 gm PO BID 11/08/16 Duloxetine HCl [Cymbalta] 60 mg PO BID 11/08/16 Pramipexole Di-HCl [Pramipexole Dihydrochloride] 1 mg PO HS 11/08/16 Cyclobenzaprine HCl [Flexeril] 10 mg PO TID PRN 11/26/16 Amiodarone HCl [Cordarone] 200 mg PO DAILY #30 tablet 12/19/16 Aspirin [Aspir-Low] 81 mg PO DAILY #30 tablet. 12/19/16 Ibuprofen 800 mg PO TID #90 tablet 12/19/16 Levothyroxine Sodium [Synthroid] 175 mcg PO DAILY #30 tablet 12/19/16 Metoprolol Tartrate [Lopressor] 100 mg PO BID #60 tablet 12/19/16 Amb Orders for Discharge: TSH * Time Frame: 6 Weeks, Facility: [facility], Location: Laboratory
--- NOTE | 2016-12-20 08:36 | ECHO ---
This report is available in the EMR
[2016-12-24] MEDS ORDERED: ERGOCALCIFEROL 50000 UNIT TABLET PO SCH (09:00)
== END 2016-12-19 10:00 | disposition home or self-care (01) | DRG 310 ==
LOC: ER 04:09 → SCU 07:09 → MS 12-18 16:03
PROVIDERS: ADMIT Family Medicine; ATTEND Family Medicine
DX: I48.91 Unspecified atrial fibrillation (principal); D72.829 Elevated white blood cell count, unspecified; M54.16 Radiculopathy, lumbar region; E11.9 Type 2 diabetes mellitus without complications; E03.9 Hypothyroidism, unspecified; I10 Essential (primary) hypertension; E78.5 Hyperlipidemia, unspecified

== ENCOUNTER 2017-04-25 10:05 | Emergency (ER) | payer MEDICARE, OTHER ==
[2017-04-25 10:20] VITALS: BP 152/64
--- NOTE | 2017-04-25 10:59 | ERNOTE ---
Lower Extremity HPI - Narrative Date of Service: 04/25/17 - General Lower Extremities Pain: knee: right Time Seen by Provider: 04/25/17 10:25 Source: patient Exam Limitations: no limitations - Immun/Allergies/Home Medications Immunizations: IMMUNIZATION HX Immunizations Up to Date Yes History of Influenza Vaccine No Hx Pneumococcal Vaccination No Allergies/Adverse Reactions: Allergies Allergy/AdvReac Type Severity Reaction Status Date / Time ciprofloxacin HCl Allergy Mild hot and Verified 04/25/17 10:23 [From Cipro] itching Home Medications: HOME MEDICATIONS Benazepril HCl [Lotensin] 40 mg PO DAILY 01/30/13 [Last Taken 03/05/14 08:00] Simvastatin 40 mg PO DAILY 07/09/13 [Last Taken 03/05/14 20:00] Omeprazole [Prilosec] 20 mg PO BID #0 03/07/14 [Last Taken 03/05/14 08:00] metFORMIN HCL [Glucophage] 500 mg PO BID 03/07/14 [Last Taken 05/25/16] Topiramate [Topamax] 100 mg PO DAILY 05/24/16 [Last Taken Unknown] Dicyclomine HCl [Bentyl] 20 mg PO TID PRN 05/25/16 [Last Taken Unknown] HYDROcodone/ACETAMINOPHEN [Hydrocodon-Acetaminoph 7.5-325] 1 each PO Q12H PRN [Last Taken Unknown] Duloxetine HCl [Cymbalta] 60 mg PO BID 11/08/16 [Last Taken Unknown] Pramipexole Di-HCl [Pramipexole Dihydrochloride] 1 mg PO HS 11/08/16 [Last Taken Unknown] Cyclobenzaprine HCl [Flexeril] 10 mg PO TID PRN 11/26/16 [Last Taken Unknown] Amiodarone HCl [Cordarone] 200 mg PO DAILY #30 tablet 12/19/16 [Last Taken Unknown] Aspirin [Aspir-Low] 81 mg PO DAILY #30 tablet. 12/19/16 [Last Taken Unknown] Ibuprofen 800 mg PO TID #90 tablet 12/19/16 [Last Taken Unknown] Levothyroxine Sodium [Synthroid] 175 mcg PO DAILY #30 tablet 12/19/16 [Last Taken Unknown] Metoprolol Tartrate [Lopressor] 100 mg PO BID #60 tablet 12/19/16 [Last Taken Unknown] Diclofenac Sodium [Diclofenac Sodium ER] 75 mg PO DAILY 04/25/17 [Last Taken Unknown] - History of Present Illness Narrative: 62 yo WF with total knee in November. Fell two weeks after surgery and according to patient tore her quadraceps tendon and fracture her patella. Had large hematoma. Since that time has noted intermittent drainage from upper pretibial region of clear fluid and her knee "murray". She said her surgeon did not want to do anything with her knee until her back is rectified for "scoliosis". She fell again on Friday. Then Friday (5 days ago) noted her right knee was swollen, hot, slightly reddened. She noted some chills but denied fever. She is concerned about infection. She also noted she had a foreign body in her right foot from stepping on glass several weeks ago. She thinks she has a UTI. And has bruising of her left arm from her fall on Friday. I asked about seeing her PCP but she said they couldn't see her until 05/06. I stressed her need to see her PCP since we could check her urine but could not remove the foreign body due to its chronicity. We agreed to check her blood count and I would ask radiologist for opinion about the best imaging study (US vs. CT) for her knee. After leaving the room, her daughter came out said she wanted to leave AMA and see her PCP. Review of Systems - Review of Systems Constitutional: Present: chills ENT: Present: no symptoms reported Respiratory: Present: no symptoms reported Cardiology: Present: no symptoms reported Gastrointestinal/Abdominal: Present: no symptoms reported Skin: Present: other - bruising - Patient's Past Medical History Patient History - Medical: Diabetes Type 2 Patient History - Cardiac/Respiratory: Atrial Fibrillation, COPD, Hypertension, Hyperlipidemia Patient History - Cancer: No Hx of Cancer Patient History - Surgical Procedures: Appendectomy, Cholecystectomy, Total Knee Replacement Patient History - Other: None - Family History Mother Family History - Medical: , Arthritis Family History - Cardiac/Respiratory: Hypertension Family History - Cancer: No pertinent family hx Father Family History - Medical: , Arthritis Family History - Cardiac/Respiratory: CVA/Stroke, Hypertension Family History - Cancer: No pertinent family hx Brother Family History - Medical: , Diabetes Type 2, Other Family History - Cardiac/Respiratory: No pertinent hx Family History - Cancer: No pertinent family hx Grandfather-Maternal Family History - Medical: History Unknown Family History - Cardiac/Respiratory: History Unknown Family History - Cancer: History Unknown Grandfather-Paternal Family History - Medical: , History Unknown Family History - Cardiac/Respiratory: History Unknown Family History - Cancer: History Unknown Grandmother-Maternal Family History - Medical: , History Unknown Family History - Cardiac/Respiratory: History Unknown Family History - Cancer: Esophageal Grandmother-Paternal Family History - Medical: , History Unknown Family History - Cardiac/Respiratory: History Unknown Family History - Cancer: History Unknown Sister Family History - Medical: Other Family History - Cardiac/Respiratory: No pertinent hx Family History - Cancer: No pertinent family hx - Social History Living Situations: alone Abuse History: No History of abuse Psych History: Hx of Depression, Current tx/ever been on anti-depressants or anti-anxiety meds Does anyone smoke in the home?: Yes Smoking Status: Never smoker Have you smoked in the past 12 months: No Do you dip or chew tobacco: No Alcohol Use: none Drug Use: none - Immunizations Immunizations Up to Date: Yes Hx Pneumococcal Vaccination: No History of Influenza Vaccine: No Physical Exam - Physical Exam General Appearance: Present: wd/wn, alert Head Exam: Present: normal inspection Extremity Exam: Present: joint redness - slight right knee, other - right knee warmer to touch than left ED Progress - Vital Signs Vital Signs: Vital Signs 04/25/17 10:17 Temperature 36.7 C Pulse Rate 61 Respiratory 18 Rate Blood Pressure 152/64 O2 Sat by Pulse 99 Oximetry - Progress/Reassessment Chief Complaint: Lower Extremity Pain/ Injury Departure Clinical Impression: Right knee pain - Departure Disposition: Against medical advice Condition: Undetermined Referrals: Manuel Valencia DO [Primary Care Provider] -
== END 2017-04-25 10:32 | disposition left against medical advice (07) ==
LOC: ER 10:05
DX: Z53.29 Procedure and treatment not carried out because of patient's decision for other reasons (principal); E11.9 Type 2 diabetes mellitus without complications; I48.91 Unspecified atrial fibrillation; Z79.01 Long term (current) use of anticoagulants; J44.9 Chronic obstructive pulmonary disease, unspecified; I10 Essential (primary) hypertension; E78.5 Hyperlipidemia, unspecified

== ENCOUNTER 2018-05-30 17:57 | Inpatient (IN) | payer MEDICARE, OTHER ==
[2018-05-30] MEDS ORDERED: HYDROmorphone HCL 1 MG/ML DISP.SYRIN IM ONE (19:03)
--- NOTE | 2018-05-30 19:11 | ERNOTE ---
Back Pain ER HPI Date of Service: 05/30/18 Presenting Symptoms: other - back pain Time Seen by Provider: 05/30/18 18:30 Source: patient, family Exam Limitations: no limitations Immunizations: IMMUNIZATION HX Immunizations Up to Date Yes History of Influenza Vaccine Yes Hx Pneumococcal Vaccination Yes Allergies/Adverse Reactions: Allergies ciprofloxacin HCl [From Cipro] Allergy (Mild, Verified 05/21/18 11:35) hot and itching Home Medications: HOME MEDICATIONS Benazepril HCl [Lotensin] 40 mg PO DAILY 01/30/13 [Last Taken 03/05/14 08:00] metFORMIN HCL [Glucophage] 500 mg PO BID 03/07/14 [Last Taken 05/25/16] Topiramate [Topamax] 100 mg PO DAILY 05/24/16 [Last Taken Unknown] Duloxetine HCl [Cymbalta] 60 mg PO BID 11/08/16 [Last Taken Unknown] Pramipexole Di-HCl [Pramipexole Dihydrochloride] 2 mg PO BID 11/08/16 [Last Taken Unknown] Aspirin [Aspir-Low] 81 mg PO DAILY #30 tablet.dr 12/19/16 [Last Taken Unknown] cyclosporine 0.05 % eye drops 1 drp OP Q12H 02/20/18 [Last Taken Unknown] diclofenac 1 % topical gel 2 g TP QID 02/20/18 [Last Taken Unknown] furosemide 20 mg tablet 20 mg PO DAILY 02/20/18 [Last Taken Unknown] cholecalciferol (vitamin D3) 1,000 unit capsule 1,000 unit PO DAILY #30 cap 03/26/18 [Last Taken Unknown] hydrocodone 5 mg-acetaminophen 325 mg tablet 1 tab PO Q8H PRN #60 tab 03/26/18 [Last Taken Unknown] levothyroxine 112 mcg tablet 224 mcg PO DAILY #180 tab 03/26/18 [Last Taken Unknown] varicella-zoster glycoE vacc-[id number] adj(PF) 50 mcg/0.5 mL IM susp, kit 50 mcg IM ONCE #1 ea 03/31/18 [Last Taken Unknown] metoprolol tartrate 100 mg tablet 100 mg PO BID #180 tab 05/18/18 [Last Taken Unknown] omeprazole 20 mg tablet,delayed release 20 mg PO BID #180 tab 05/18/18 [Last Taken Unknown] cholestyramine-aspartame 4 gram oral powder 4 g PO DAILY #210 g 05/21/18 [Last Taken Unknown] varenicline 0.5 mg (11)-1 mg (42) tablets in a dose pack See Rx Instructions PO PER PKG DIR #53 tab 05/21/18 [Last Taken Unknown] Narrative: Patient post op day 3 after laminectomy L4/L5. States her pain is much worse than it has ever been going down into the back of both legs. Denies any fever. States she has been taking oxycodone 10mg every 4 hrs with no relief. States her pain is severe enough she cannot get up to the bathroom. Denies any new incontinence. Date (Duration): 05/27/18 Timing: Reports: constant Quality/Severity: Reports: severe, burning, sharpness Location of pain: Reports: lower back, radiating to rt thigh/leg, radiating to lf thigh/leg Activities at Onset: Reports: other - surgery Recent Injury?: Reports: no Possible Precipitating Factor: Reports: other - chronic on postop. Modifying Factors - (Improves): Reports: nothing Modifying Factors - (Worsens): Reports: movement flexion Associated Symptoms: Reports: none - Pain in the back of both legs. Prior Treament: Reports: recently seen Review of Systems - Review of Systems Constitutional: Present: no symptoms reported Respiratory: Present: no symptoms reported Cardiology: Present: no symptoms reported Gastrointestinal/Abdominal: Present: no symptoms reported Genitourinary: Present: no symptoms reported Musculoskeletal: Present: See HPI, other - Lower back pain as described. Skin: Present: other - Incision Lumbar Neurological: Present: other - Has bilateral lower extremity tingling Endocrine: Present: no symptoms reported Hematologic/Lymphatic: Present: no symptoms reported Psych: Present: no symptoms reported Medical History (Last Reviewed 05/30/18 @ 18:13 by Blessing Mathews) Abnormal granulation tissue Onset Date: 08/15/11 Arthritis Carpal tunnel syndrome Diabetes mellitus, type II Headache Hyperlipidemia Onset Date: 08/26/16 Hypertension Hypothyroidism IBS (irritable bowel syndrome) Joint pain Macular degeneration Onychomycosis Rotator cuff tear Onset Date: 2014 left Thyroid disease Weakness Surgical History: Surgical History (Last Updated 05/30/18 @ 18:17 by Blessing Mathews) H/O arthroscopic knee surgery Left Dr. Avila 01/04/2004 Right 01/03/2003 H/O dilation and curettage Onset Date: 03/2008 Dr. Campbell H/O neck surgery Onset Date: 2012 cervical disc decompression w/fusion of cervical spinal cord C5-6 H/O shoulder replacement Onset Date: 11/06/15 Dr. Mary History of back surgery History of carpal tunnel release Onset Date: 2008 Dr. Mary, bilaeral History of cataract removal with insertion of prosthetic lens 07/12/13 left 08/23/13 right History of colonoscopy Onset Date: 11/18/162007 Dr. Peacock bx negative 11/18/16 Tania, diverticulosis, lucero 10 yrs History of esophagogastroduodenoscopy (EGD) Onset Date: 08/08/99 Charli, with biopsy, Gastritis History of hysterectomy History of laparoscopic appendectomy Onset Date: 05/27/16 Dr. Marin History of local excision of skin lesion Onset Date: 09/14/08 Right upper back, neurofibroma right upper chest, epidermal inclusion cyst History of total vaginal hysterectomy (TVH) Onset Date: 05/28/11 Dr. Campbell History of tubal ligation Onset Date: 1979 Hx of cholecystectomy Onset Date: 11/18/99 Dr. Augustin Hx of umbilical hernia repair Onset Date: 11/01/99 Dr. Augustin McCalls Culdoplasty Onset Date: 05/28/11 Previous back surgery Onset Date: 06/15/17 Dr. Fontenot, laminectomy on R of L4, w/partial facetectomy laminectomy on right of L5 w/ partial medial facetectomy Rectocele, female repair S/P YAG capsulotomy, bilateral Onset Date: 02/08/14 Total knee replacement status Left 02/2008, Right 12/2006 colporrhaphy Onset Date: 05/28/11 Family History: Family History (Last Reviewed 05/30/18 @ 18:17 by Blessing Mathews) Brother Pancreatitis, Onset Age: 46 Daughter Alive and well Father CVA (cerebral vascular accident), Onset Age: 70 Hypertension Arthritis Grandmother No problems noted. Grandfather No problems noted. Mother Arthritis Hypertension, Onset Age: 85 Sister Heart disease, Onset Age: 70 Sister colon issues Son Alive and well Son No problems noted. Social History: Preferred Language Welsh Smoking Status Former smoker Abuse History No History of abuse Psych History Hx of Depression,Currently on Meds Alcohol Use none Drug Use none (Last Updated 05/26/18 @ 11:55 by Manuel Valencia DO) No Social History Section defined Physical Exam - Physical Exam General Appearance: Present: wd/wn, alert, moderate distress Eye Exam: Normal inspection: bilateral, PERRL: bilateral, EOMI: bilateral Neck: Present: normal inspection, supple, full range of motion Respiratory: Present: no respiratory distress, normal breath sounds, no accessory muscle use Cardiovascular/Chest: Present: regular rate, rhythm, no murmur, normal peripheral pulses Gastrointestinal/Abdominal: Present: other - hyperactive BS. Obese. . Absent: guarding, rebound Back Exam: Present: decreased range of motion, other - Lumbar incision with no induration, drainage, or erythema present. Tender to palpation paraspinal. No point tenderness. . No sciatic tenderness bilateral. Extremity Exam: Present: decreased range of motion, other - Decreased ROM bilateral lower extremities. Sensation intact. Lower strength equal but weaker than expected bilateral. Neurological Exam: Present: alert, oriented, no motor/sensory deficits, other - No cauda equina syndrome Skin Exam: Present: normal color, warm/dry ED Progress - Results and Orders Patient's Lab Results:: I have reviewed the patient's lab results. - Vital Signs Patient's Vital Signs:: I have reviewed the patient's vital signs. Vital Signs: Vital Signs 05/30/18 18:03 05/30/18 18:52 Temperature 37.3 C Pulse Rate 98 100 Respiratory Rate 20 20 Blood Pressure 129/66 160/71 H O2 Sat by Pulse Oximetry 97 93 - CT/Ultrasound CT/Ultrasound Narrative: CT lumbar (No acute findings) per radiology - Progress/Reassessment Chief Complaint: Back Pain Progress:: Improved - However patient is very drowsy with need for O2 to keep sats >90%/ Improved but not resolved. - Transfer of Care Additional Notes: Discussed patient with Diogenes ARGUELLO for Dr. Fontenot and he suggested toradol and steroid. Otherwise no other ideas or suggestions. Discussed patient with Dr. Zhu. Will place on observation for pain control and O2 support as needed. Patient states she understands instructions and has no questions at this time. Departure Clinical Impression: Intractable neuropathic pain of lumbosacral origin - Departure Disposition: Still a patient Condition: Stable
[2018-05-30 19:20] LABS: Hematocrit 38.7 % (37.0-47.0); Hemoglobin 11.3 gm/dL (12.5-16.0); Mean Corpuscular Hemoglobin 25.1 pg (27-31); Mean Corpuscular Hgb Conc 29.2 g/dl (32-36); Mean Platelet Volume 8.8 fl (8-12.5); Neutrophil % 72.4 % (42-75.0); Platelet Count 361 K/mm3 (150-450); Red Cell Distribution Width 15.5 % (11.5-14.0); White Blood Count 12.5 K/mm3 (4.0-10.5)
[2018-05-30 20:24] LABS: Urine Appearance Clear (CLEAR); Urine Bilirubin Negative (NEGATIVE); Urine Color Yellow; Urine Ketone Negative (NEGATIVE)
[2018-05-30 20:25] LABS: Albumin * 3.1 gm/dl (3.4-5.0); Anion Gap 11.1 mmol/L (6.8-13.8); BUN/Creatinine Ratio 20.5 (9.0-21.6); Bilirubin, Total 0.3 mg/dL (0.0-1.1); Ca. Corrected For Albumin 9.2 mg/dL (8.4-10.2); Calcium * 8.8 mg/dL (7.9-10.9); Carbon Dioxide 31.9 mmol/L (24-32.6)
[2018-05-30 20:25] LABS: Urine Bacteria None Seen; Urine Blood 150 /ul (NEGATIVE); Urine Nitrite Negative (NEGATIVE); Urine Protein Negative (NEGATIVE); Urine RBC 0-5 /hpf (0-5); Urine Urobilinogen Normal (NORMAL); Urine WBC None Seen /hpf (0-5)
[2018-05-30] MEDS ORDERED: KETOROLAC TROMETHAMINE 30 MG/ML VIAL IV ONE (20:56)
[2018-05-30] MEDS ORDERED: DEXAMETHASONE SODIUM PHOSP/PF 10 MG/ML VIAL IV ONE (20:56)
[2018-05-30] MEDS ORDERED: VARENICLINE PO SCH (21:30)
[2018-05-30] MEDS ORDERED: ACETAMINOPHEN 500 MG TABLET PO PRN (21:35)
[2018-05-30] MEDS ORDERED: OMEPRAZOLE 20 MG CAPSULE.SA PO SCH (22:00)
[2018-05-31] MEDS: PRAMIPEXOLE DI-HCL 0.5 MG TABLET PO SCH ×3 (03:28→20:33)
[2018-05-31 06:13] LABS: Hematocrit 36.3 % (37.0-47.0); Hemoglobin 10.7 gm/dL (12.5-16.0); Mean Cell Volume 84.8 fl (78-100); Mean Corpuscular Hgb Conc 29.5 g/dl (32-36); Neutrophil # 12.4 K/mm3 (1.3-6.0); Neutrophil % 89.4 % (42-75.0); Platelet Count 335 K/mm3 (150-450); Red Blood Count 4.28 M/mm3 (4.2-5.4); Red Cell Distribution Width 15.3 % (11.5-14.0); White Blood Count 13.9 K/mm3 (4.0-10.5)
[2018-05-31 06:23] LABS: Anion Gap 12.8 mmol/L (6.8-13.8); BUN/Creatinine Ratio 21.2 (9.0-21.6); Calcium * 8.6 mg/dL (7.9-10.9); Carbon Dioxide 28.4 mmol/L (24-32.6); Estimated Creat Clear 61.8; Potassium 4.2 mmol/L (3.4-4.6)
[2018-05-31] MEDS: LEVOTHYROXINE SODIUM 112 MCG TABLET PO SCH (07:26)
[2018-05-31] MEDS: PANTOPRAZOLE SODIUM 20 MG TABLET.DR PO SCH ×2 (07:28→19:10)
[2018-05-31] MEDS: HYDROmorphone HCL 2 MG TABLET PO PRN ×3 (07:32→19:10)
[2018-05-31] MEDS: METOPROLOL SUCCINATE 100 MG TABLET.SA PO SCH (10:01)
[2018-05-31] MEDS: Cyclosporine [Restasis Multidose] OP SCH ×2 (10:02→20:32)
[2018-05-31] MEDS: TOPIRAMATE 50 MG TABLET PO SCH (10:02)
[2018-05-31] MEDS: ASPIRIN 81 MG TABLET.DR PO SCH (10:02)
[2018-05-31] MEDS: ENALAPRIL MALEATE 20 MG TABLET PO SCH (10:03)
[2018-05-31] MEDS: FUROSEMIDE 20 MG TABLET PO SCH (10:04)
[2018-05-31] MEDS: CHOLECALCIFEROL 1,000 UNIT CAPSULE PO SCH (10:04)
[2018-05-31] MEDS: metFORMIN HCL 500 MG TABLET PO SCH ×2 (10:05→16:59)
[2018-05-31] MEDS: DULoxetine HCL 30 MG CAPSULE.SA PO SCH ×2 (10:05→20:32)
[2018-05-31] MEDS: CHOLESTYRAMINE/SUCROSE 4 GM PACKET PO SCH ×2 (10:07→10:14)
[2018-05-31] MEDS: DICLOFENAC SODIUM 100 APPL TUBE TP SCH ×4 (10:08→20:34)
[2018-05-31] MEDS: NYSTATIN 15 APPL BTL TP SCH ×2 (11:33→20:34)
[2018-05-31] MEDS: valACYclovir HCL 500 MG TABLET PO SCH ×2 (11:34→20:33)
[2018-05-31] MEDS: FLUCONAZOLE 200 MG TABLET PO SCH (11:37)
[2018-06-01] MEDS: HYDROmorphone HCL 2 MG TABLET PO PRN ×3 (00:25→22:39)
[2018-06-01] MEDS: PANTOPRAZOLE SODIUM 20 MG TABLET.DR PO SCH ×2 (06:36→17:44)
[2018-06-01] MEDS: LEVOTHYROXINE SODIUM 112 MCG TABLET PO SCH (06:36)
[2018-06-01] MEDS: DULoxetine HCL 30 MG CAPSULE.SA PO SCH ×2 (09:14→20:07)
[2018-06-01] MEDS: ASPIRIN 81 MG TABLET.DR PO SCH (09:14)
[2018-06-01] MEDS: PRAMIPEXOLE DI-HCL 0.5 MG TABLET PO SCH ×2 (09:14→20:07)
[2018-06-01] MEDS: valACYclovir HCL 500 MG TABLET PO SCH ×2 (09:14→20:10)
[2018-06-01] MEDS: TOPIRAMATE 50 MG TABLET PO SCH (09:14)
[2018-06-01] MEDS: metFORMIN HCL 500 MG TABLET PO SCH ×2 (09:15→17:44)
[2018-06-01] MEDS: CHOLECALCIFEROL 1,000 UNIT CAPSULE PO SCH (09:15)
[2018-06-01] MEDS: CHOLESTYRAMINE/SUCROSE 4 GM PACKET PO SCH (09:15)
[2018-06-01] MEDS: ENALAPRIL MALEATE 20 MG TABLET PO SCH (09:15)
[2018-06-01] MEDS: METOPROLOL SUCCINATE 100 MG TABLET.SA PO SCH (09:15)
[2018-06-01] MEDS: FUROSEMIDE 20 MG TABLET PO SCH (09:15)
[2018-06-01] MEDS: FLUCONAZOLE 200 MG TABLET PO SCH (09:15)
[2018-06-01] MEDS: NYSTATIN 15 APPL BTL TP SCH ×2 (09:16→20:09)
[2018-06-01] MEDS: Cyclosporine [Restasis Multidose] OP SCH ×2 (09:16→20:06)
[2018-06-01] MEDS: DICLOFENAC SODIUM 100 APPL TUBE TP SCH ×4 (09:17→20:11)
--- NOTE | 2018-06-01 09:21 | HP ---
Chief Complaint - Chief Complaint Date of Service: 05/30/18 Time of Service: 23:00 Chief Complaint: Severe low back pain, loss of mobility, L. leg numbness History of Present Illness: Gertrude Restrepo is a 63-year-old female who just underwent lumbar discectomy surgery 3 days ago. Her back pain was so severe at home that she couldn't manage with the medicines that she had there which was hydrocodone. She presented to the emergency room in severe pain. She was given a milligram of Dilaudid IV and it suppressed her respiratory drive and her oxygen saturation dropped to 90%. ER doctor felt she needed to be admitted because of the concern for respiratory depression with her pain management. On arrival she is fully alert and her oxygen saturations are in the mid 90s. Her back pain is much better controlled with Dilaudid than it was with the hydrocodone. We will monitor her through the day and night to make sure that she is not desaturating significantly. Medical History (Last Reviewed 05/30/18 @ 23:24 by Janet Zelaya RN) Abnormal granulation tissue Onset Date: 08/15/11 Arthritis Carpal tunnel syndrome Diabetes mellitus, type II Headache Hyperlipidemia Onset Date: 08/26/16 Hypertension Hypothyroidism IBS (irritable bowel syndrome) Joint pain Macular degeneration Onychomycosis Rotator cuff tear Onset Date: 2014 left Thyroid disease Weakness Surgical History: Surgical History (Last Reviewed 05/30/18 @ 23:24 by Janet Zelaya RN) H/O arthroscopic knee surgery Left Dr. Avila 01/04/2004 Right 01/03/2003 H/O dilation and curettage Onset Date: 03/2008 Dr. Campbell H/O neck surgery Onset Date: 2012 cervical disc decompression w/fusion of cervical spinal cord C5-6 H/O shoulder replacement Onset Date: 11/06/15 Dr. Mary History of back surgery History of carpal tunnel release Onset Date: 2008 Dr. Mary, bilaeral History of cataract removal with insertion of prosthetic lens 07/12/13 left 08/23/13 right History of colonoscopy Onset Date: 11/18/162007 Dr. Peacock bx negative 11/18/16 Bagan, diverticulosis, lucero 10 yrs History of esophagogastroduodenoscopy (EGD) Onset Date: 08/08/99 Tinguely, with biopsy, Gastritis History of hysterectomy History of laparoscopic appendectomy Onset Date: 05/27/16 Dr. Marin History of local excision of skin lesion Onset Date: 09/14/08 Right upper back, neurofibroma right upper chest, epidermal inclusion cyst History of total vaginal hysterectomy (TVH) Onset Date: 05/28/11 Dr. Campbell History of tubal ligation Onset Date: 1979 Hx of cholecystectomy Onset Date: 11/18/99 Dr. Augustin Hx of umbilical hernia repair Onset Date: 11/01/99 Dr. Augustin McCalls Culdoplasty Onset Date: 05/28/11 Previous back surgery Onset Date: 06/15/17 Dr. Fontenot, laminectomy on R of L4, w/partial facetectomy laminectomy on right of L5 w/ partial medial facetectomy Rectocele, female repair S/P YAG capsulotomy, bilateral Onset Date: 02/08/14 Total knee replacement status Left 02/2008, Right 12/2006 colporrhaphy Onset Date: 05/28/11 Family History: Family History (Last Reviewed 05/30/18 @ 23:24 by Janet Zelaya RN) Brother Pancreatitis, Onset Age: 46 Daughter Alive and well Father CVA (cerebral vascular accident), Onset Age: 70 Hypertension Arthritis Grandmother No problems noted. Grandfather No problems noted. Mother Arthritis Hypertension, Onset Age: 85 Sister Heart disease, Onset Age: 70 Sister colon issues Son Alive and well Son No problems noted. Social History: Patient Lives/Resources Home Utilized Occupation Retired Preferred Language Guinean Do you have any anabaptism or Yes: Baptism cultural preference? Smoking Status Former smoker Have you smoked in the past 12 Yes months Abuse History No History of abuse Psych History Hx of Depression,Currently on Meds Alcohol Use none Drug Use none (Last Updated 05/26/18 @ 11:55 by Manuel Valencia DO) No Social History Section defined Review Of Systems (GEN) - Review of Systems Generalized/Overall Review: Present: Fatigue EENTM: Present: No Symptoms Reported Respiratory: Present: No Symptoms Reported Cardiac: Present: No Symptoms Reported, Other - History of Atrial fib Abdominal: Present: No Symptoms Reported Genitourinary: Present: No Symptoms Reported Musculoskeletal: Present: Back Pain - The lumbar spine with numbness of the left leg and weakness in both lower extremities. Neurological: Present: Numbness - Of the left leg, Weakness - Lower extremities. Skin: Present: No Symptoms Reported Endocrine: Present: No Symptoms Reported, Other - History of controlled NIDDM Misc: All systems neg except as marked Immunizations: IMMUNIZATION HX Immunizations Up to Date Yes History of Influenza Vaccine Yes Hx Pneumococcal Vaccination Yes Allergies/Adverse Reactions: Allergies Allergy/AdvReac Type Severity Reaction Status Date / Time ciprofloxacin HCl Allergy Mild hot and Verified 05/21/18 11:35 [From Cipro] itching Home Medications: HOME MEDICATIONS Benazepril HCl [Lotensin] 40 mg PO DAILY 01/30/13 [Last Taken 03/05/14 08:00] metFORMIN HCL [Glucophage] 500 mg PO BID 03/07/14 [Last Taken 05/25/16] Topiramate [Topamax] 100 mg PO DAILY 05/24/16 [Last Taken Unknown] Duloxetine HCl [Cymbalta] 60 mg PO BID 11/08/16 [Last Taken Unknown] Pramipexole Di-HCl [Pramipexole Dihydrochloride] 2 mg PO BID 11/08/16 [Last Taken Unknown] Aspirin [Aspir-Low] 81 mg PO DAILY #30 tablet. 12/19/16 [Last Taken Unknown] cyclosporine 0.05 % eye drops 1 drp OP Q12H 02/20/18 [Last Taken Unknown] diclofenac 1 % topical gel 2 g TP QID 02/20/18 [Last Taken Unknown] furosemide 20 mg tablet 20 mg PO DAILY 02/20/18 [Last Taken Unknown] cholecalciferol (vitamin D3) 1,000 unit capsule 1,000 unit PO DAILY #30 cap 01/05 [Last Taken Unknown] hydrocodone 5 mg-acetaminophen 325 mg tablet 1 tab PO Q8H PRN #60 tab 03/26/18 [Last Taken Unknown] levothyroxine 112 mcg tablet 224 mcg PO DAILY #180 tab 03/26/18 [Last Taken Unknown] varicella-zoster glycoE [id number] adj(PF) 50 mcg/0.5 mL IM susp, kit 50 mcg IM ONCE #1 ea 03/31/18 [Last Taken Unknown] omeprazole 20 mg tablet,delayed release 20 mg PO BID #180 tab 05/18/18 [Last Taken Unknown] cholestyramine-aspartame 4 gram oral powder 4 g PO DAILY #210 g 05/21/18 [Last Taken Unknown] varenicline 0.5 mg (11)-1 mg (42) tablets in a dose pack See Rx Instructions PO PER PKG DIR #53 tab 05/21/18 [Last Taken Unknown] Metoprolol Succinate [Toprol Xl] 100 mg PO DAILY 05/30/18 [Last Taken Unknown] Fluticasone/Salmeterol [Advair 250-50 Diskus] 1 puff IH BID 06/01/18 [Last Taken Unknown] Exam - Exam Vital Signs: Vital Signs - Last Taken Temp 36.6 C 06/01/18 06:38 Pulse 78 06/01/18 06:38 Resp 25 H 06/01/18 06:38 BP 159/86 H 06/01/18 06:38 Pulse Ox 98 06/01/18 06:38 Constitutional: Present: Alert, Oriented x3, Cooperative, Well developed, Obese ENT Exam: Present: normal ENT inspection, hearing grossly normal, pharynx normal, TMs normal Eye Exam: bilateral eye: normal inspection, PERRL, EOMI Neck: Present: non-tender, full range of motion Back Exam: Present: decreased range of motion, muscle spasm, vertebral tenderness, other - Dressing covering surgical wound in the lumbar spine Breasts: Present: Exam deferred Respiratory: Present: chest non-tender, lungs clear, normal breath sounds, no respiratory distress, no accessory muscle use Cardiovascular/Chest: Present: normal peripheral pulses, no chest tenderness, no edema, irregularly irregular Peripheral Pulses: carotid (R): 2+, carotid (L): 2+ Abdomen: Present: Normal bowel sounds, soft, nontender, nondistended, no rebound tenderness, no hepatospenomegaly /Rectal: Present: Exam deferred Extremity: Present: normal range of motion, non-tender, normal inspection, no pedal edema, no calf tenderness Skin Exam: Present: normal color, warm/dry, no cyanosis, cool/dry Lymphatic: Present: no adenopathy Neurologic: Present: bottom turner II-XII nml as tested, oriented x 3, abnormal gait - Unable to walk. Requires a walker and to max assist to stand., motor weakness - Of both legs. Absent: no motor/sensory deficits Appearance: Present: appropriate appearance Eye contact: Present: cooperative, good eye contact, normal speech Thoughts: Present: normal thought pattern, no apparent hallucination Diagnostic Studies: Microbiology 05/30/18 20:00 Blood Culture - Preliminary Blood NO GROWTH 24 HOURS 05/30/18 19:15 Blood Culture - Preliminary Blood NO GROWTH 24 HOURS 05/30/18 22:40 - Final Nares MRSA Negative Laboratory Results WBC 13.9 K/mm3 (4.0-10.5) H 05/31/18 05:55 RBC 4.28 M/mm3 (4.2-5.4) 05/31/18 05:55 Hgb 10.7 gm/dL (12.5-16.0) L 05/31/18 05:55 Hct 36.3 % (37.0-47.0) L 05/31/18 05:55 MCV 84.8 fl (78-100) 05/31/18 05:55 MCH 25.0 pg (27-31) L 05/31/18 05:55 MCHC 29.5 g/dl (32-36) L 05/31/18 05:55 RDW 15.3 % (11.5-14.0) H 05/31/18 05:55 Plt Count 335 K/mm3 (150-450) 05/31/18 05:55 MPV 9.0 fl (8-12.5) 05/31/18 05:55 Immature Gran % (Auto) 0.80 % (0.001-0.429) H 05/31/18 05:55 Immature Gran # (Auto) 0.11 K/mm3 (0.000-0.0310) H 05/31/18 05:55 Neutrophils % 89.4 % (42-75.0) H 05/31/18 05:55 Lymphocytes % 7.4 % (20-51) L 05/31/18 05:55 Monocytes % 2.1 % (0.0-9) 05/31/18 05:55 Eosinophils % 0.1 % (0.0-3.0) 05/31/18 05:55 Basophils % 0.2 % (0.0-1.0) 05/31/18 05:55 Nucleated RBC % 0.0 k/mm3 (0-1) 05/31/18 05:55 Neutrophils # 12.4 K/mm3 (1.3-6.0) H 05/31/18 05:55 Lymphocytes # 1.02 k/mm3 (1.5-3.5) L 05/31/18 05:55 Monocytes # 0.3 k/mm3 (0.0-1.0) 05/31/18 05:55 Eosinophils # 0.0 k/mm3 (0.0-0.7) 05/31/18 05:55 Absolute Basophils 0.0 k/mm3 (0.0-0.1) 05/31/18 05:55 Sodium 141 mmol/L (132-142) 05/31/18 05:55 Plasma Sodium 143 mmol/L (130-142) H 05/31/18 05:55 Potassium 4.2 mmol/L (3.4-4.6) 05/31/18 05:55 Chloride 104 mmol/L (97-106) 05/31/18 05:55 Carbon Dioxide 28.4 mmol/L (24-32.6) 05/31/18 05:55 Anion Gap 12.8 mmol/L (6.8-13.8) 05/31/18 05:55 BUN 18 mg/dL (3-23) 05/31/18 05:55 Creatinine 0.85 mg/dL (0.4-1.4) 05/31/18 05:55 Est GFR (Non-Af Amer) 71 mL/min (60-130) 05/31/18 05:55 BUN/Creatinine Ratio 21.2 (9.0-21.6) 05/31/18 05:55 Random Glucose 226 mg/dL (70-110) H D 05/31/18 05:55 Lactic Acid, Venous 1.2 mmol/L (0.4-2.0) 05/30/18 20:00 Calcium 8.6 mg/dL (7.9-10.9) 05/31/18 05:55 Calcium Adj for Albumin 9.2 mg/dL (8.4-10.2) 05/30/18 19:15 Total Bilirubin 0.3 mg/dL (0.0-1.1) 05/30/18 19:15 AST 36 U/L (0-48) 05/30/18 19:15 ALT 45 U/L (19-67) 05/30/18 19:15 Alkaline Phosphatase 147 U/L (50-170) 05/30/18 19:15 Total Protein 7.0 gm/dL (6.2-8.2) 05/30/18 19:15 Albumin 3.1 gm/dl (3.4-5.0) L 05/30/18 19:15 Urine Color Yellow 05/30/18 20:06 Urine Appearance Clear (CLEAR) 05/30/18 20:06 Urine pH 6.0 pH (5.0-7.0) 05/30/18 20:06 Ur Specific Bow 1.020 SP.GR. (1.005-1.010) 05/30/18 20:06 Urine Protein Negative mg/dL (NEGATIVE) 05/30/18 20:06 Urine Glucose (UA) Negative mg/dL (NEGATIVE) 05/30/18 20:06 Urine Ketones Negative mg/dL (NEGATIVE) 05/30/18 20:06 Urine Blood 150 /ul (NEGATIVE) H 05/30/18 20:06 Urine Nitrate Negative (NEGATIVE) 05/30/18 20:06 Urine Bilirubin Negative mg/dl (NEGATIVE) 05/30/18 20:06 Urine Urobilinogen Normal EU/dl (NORMAL) 05/30/18 20:06 Ur Leukocyte Esterase Negative /ul (NEGATIVE) 05/30/18 20:06 Urine RBC 0-5 /hpf (0-5) 05/30/18 20:06 Urine WBC None seen /hpf (0-5) 05/30/18 20:06 Ur Epithelial Cells None seen /hpf (0-5) 05/30/18 20:06 Urine Bacteria None seen (NONE) 05/30/18 20:06 Urine Culture Comments No culture indicated 05/30/18 20:06 Assessment/Plan - Narrative Narrative: 1. Tylenol for pain management 2. To monitor her respiratory drive and saturations 3. 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
[2018-06-01] MEDS ORDERED: DEXAMETHASONE SODIUM PHOSPHATE 10 MG/ML VIAL IV ONE (10:18)
[2018-06-01] MEDS ORDERED: KETOROLAC TROMETHAMINE 30 MG/ML VIAL IV ONE (10:18)
--- NOTE | 2018-06-01 10:23 | PN ---
Subjective - Date and Time Seen Date: 05/31/18 Time: 10:00 Subjective Narrative: Mrs. Restrepo is much more comfortable this morning. The daughter is doing much better job of managing her back pain. She still has motor weakness in both lower extremities and is unable to stand unassisted. She is standing with a walker and 2 people assisting. She is unable to move her legs to transfer has any attempt to do so causes buckling of the knees. Also she's developed a red patchy rash above the right buttocks that is burning and painful and appears to be a zoster eruption. She also has redness and moisture in the perineal area and in the skin folds which are suggestive of cutaneous candidiasis. Also her heart is in normal sinus rhythm today. It seemed irregularly irregular yesterday on admission. She has a history of atrial fibrillation but has been converted. I reviewed EKGs for the last year and they were both in normal sinus rhythm. She is not on any anticoagulant medicine. She takes metoprolol which has kept her in sinus rhythm for the most part. Objective - Review of Systems Generalized/Overall Review: Reports: Weakness EENTM: Reports: No Symptoms Reported - In both lower legs Respiratory: Reports: No Symptoms Reported Cardiac: Reports: No Symptoms Reported Abdominal: Reports: No Symptoms Reported Genitourinary Symptoms: Reports: No Symptoms Reported Musculoskeletal Complaints: Reports: Other - Muscle weakness in the lower legs and low back pain. Neurological: Reports: Numbness - Left lower leg, Weakness - Both lower legs Skin: Reports: No Symptoms Reported, Rash - Rashes located in the skin folds of the abdomen and in the perineum. There is redness and moisture and appears to be cutaneous candidiasis. Endocrine: Reports: Other - History of diabetes well controlled with metformin and diet. - Vitals Vitals: Last Vital Signs Temp 36.6 C 06/01/18 06:38 Pulse 78 06/01/18 09:15 Resp 25 H 06/01/18 06:38 BP 159/86 H 06/01/18 09:15 Pulse Ox 98 06/01/18 06:38 - EKG/Xray Findings EKG: NSR - This is a review of an EKG done in November 2017. EKG read: Reviewed by me - Exam Constitutional: Present: Alert, Oriented x3, Cooperative, Well developed, Mild distress, Obese ENT Exam: Present: normal ENT inspection, hearing grossly normal, pharynx normal, TMs normal, hard of hearing Neck: Present: non-tender, full range of motion, supple, normal inspection Breasts: Present: Exam deferred Respiratory: Present: chest non-tender Cardiovascular/Chest: Present: normal peripheral pulses, regular rate, rhythm, no chest tenderness, no edema, no gallop, no JVD, no murmur Abdomen: Present: Normal bowel sounds, soft, nontender /Rectal: Present: Exam deferred, Other - Nursing reports perineal inflammation and swelling. Patient complains of irritation in the perineum. Extremity: Present: normal range of motion - In the upper extremities. Limited range of motion in the lower extremities because of low back pain., non-tender, normal inspection, no pedal edema, no calf tenderness, normal capillary refill Skin Exam: Present: skin rash - Due to cutaneous candidiasis in the skin folds perineal area Lymphatic: Present: no adenopathy Neurologic: Present: bushing press operator II-XII nml as tested, alert, normal mood/affect, oriented x 3, abnormal gait - Unable to walk, motor weakness - Both lower legs Appearance: Present: appropriate appearance, appropriate insight, neat, no memory impairment Eye contact: Present: cooperative, good eye contact, normal speech Thoughts: Present: normal thought pattern, no apparent hallucination Assessment/Plan Plan Narrative: 1. Add valacyclovir 1 g twice a day 2. Add nystatin powder to the perineal area and skin folds 3. I suspect she will need rehabilitation therapy to improve her motor strength. 4. I suspect she will need an MRI of her lumbar spine to try to determine why the left leg is numb. I suspect there is nerve compression still. 5. Dr. Valencia to assume management tomorrow - Problems/Diagnosis (1) Left leg numbness Problem: Acute (2) Bilateral leg weakness Problem: Acute (3) Diabetes type 2, controlled Problem: Chronic Qualifiers: Diabetes mellitus mcc insulin use: without mcc use Diabetes mellitus complication status: without complication Qualified Code(s): E11.9 - Type 2 diabetes mellitus without complications (4) Atrial fibrillation Problem: Resolved Qualifiers: Atrial fibrillation type: chronic Qualified Code(s): I48.2 - Chronic atrial fibrillation (5) Lumbar radicular pain Problem: Chronic (6) Intractable neuropathic pain of lumbosacral origin Problem: Acute (7) Cutaneous candidiasis Problem: Acute (8) Herpes zoster Problem: Acute Qualifiers: Herpes zoster complications: without complications Qualified Code(s): B02.9 - Zoster without complications
--- NOTE | 2018-06-01 13:43 | PN ---
Subjective - Date and Time Seen Date: 06/01/18 Time: 08:30 Subjective Narrative: Gertrude reports continued low back pain with pain down her legs. She was evaluated by PT this morning and felt to be unsafe for home discharge. She just had laminectomy three days ago by Dr. Fontenot in [place]. Objective - Vitals Vitals: Last Vital Signs Temp 36.6 C 06/01/18 06:38 Pulse 75 06/01/18 10:02 Resp 25 H 06/01/18 06:38 BP 159/86 H 06/01/18 09:15 Pulse Ox 98 06/01/18 06:38 - Exam Constitutional: Present: Alert, Oriented x3, Cooperative Respiratory: Present: lungs clear, normal breath sounds Cardiovascular/Chest: Present: no murmur, irregularly irregular Abdomen: Present: Normal bowel sounds, soft, nontender, nondistended Skin Exam: Present: normal color, warm/dry, no cyanosis Assessment/Plan Plan Narrative: Gertrude is a 63 yo female with intractable low back. She has been getting oral diluadid and even this is not covering her pain. Evaluation with PT shows that she is unsafe for home discharge. She needs IV medication. Will give her IV injections of decadron and toradol to help with swelling and pain. I suspect that she may have an acute flare of swelling in the surgical site that is causing worse pain than she had prior to surgery. Imaging of the area does not show any hematoma or ather acute injury. She requires continued inpatient care for IV treatment with toradol and decadron and re-assessment. If she does not show improvement may need to repeat lumbar CT to recheck for developing hematoma at the surgical site. At this time she continues to remain unsafe for discharge and requires inpatient treatment. 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
[2018-06-02] MEDS: LEVOTHYROXINE SODIUM 112 MCG TABLET PO SCH (07:01)
[2018-06-02] MEDS: PANTOPRAZOLE SODIUM 20 MG TABLET.DR PO SCH ×2 (07:01→16:58)
[2018-06-02] MEDS: HYDROmorphone HCL 2 MG TABLET PO PRN ×2 (07:11→23:54)
[2018-06-02] MEDS ORDERED: KETOROLAC TROMETHAMINE 30 MG/ML VIAL IV ONE (09:03)
[2018-06-02] MEDS: TOPIRAMATE 50 MG TABLET PO SCH (09:51)
[2018-06-02] MEDS: PRAMIPEXOLE DI-HCL 0.5 MG TABLET PO SCH ×2 (09:51→20:17)
[2018-06-02] MEDS: FLUCONAZOLE 200 MG TABLET PO SCH (09:52)
[2018-06-02] MEDS: valACYclovir HCL 500 MG TABLET PO SCH (09:52)
[2018-06-02] MEDS: CHOLECALCIFEROL 1,000 UNIT CAPSULE PO SCH (09:52)
[2018-06-02] MEDS: metFORMIN HCL 500 MG TABLET PO SCH ×2 (09:52→16:58)
[2018-06-02] MEDS: DULoxetine HCL 30 MG CAPSULE.SA PO SCH ×2 (09:52→20:16)
[2018-06-02] MEDS: ASPIRIN 81 MG TABLET.DR PO SCH (09:52)
[2018-06-02] MEDS: ENALAPRIL MALEATE 20 MG TABLET PO SCH (09:52)
[2018-06-02] MEDS: predniSONE 20 MG TABLET PO SCH (09:53)
[2018-06-02] MEDS: FUROSEMIDE 20 MG TABLET PO SCH (09:53)
[2018-06-02] MEDS: METOPROLOL SUCCINATE 100 MG TABLET.SA PO SCH (09:53)
[2018-06-02] MEDS: CHOLESTYRAMINE/SUCROSE 4 GM PACKET PO SCH (09:53)
[2018-06-02] MEDS: NYSTATIN 15 APPL BTL TP SCH ×2 (09:54→20:17)
[2018-06-02] MEDS: DICLOFENAC SODIUM 100 APPL TUBE TP SCH ×4 (09:54→20:16)
[2018-06-02] MEDS: Cyclosporine [Restasis Multidose] OP SCH ×2 (09:55→20:19)
--- NOTE | 2018-06-02 17:10 | PN ---
Subjective - Date and Time Seen Date: 06/02/18 Time: 16:39 Subjective Narrative: Gertrude reports feeling better today. Pain in back is better. She continues to report left foot numb from toes to distal tibia. She was able to work more with PT today. She reports urinary frequency and some dysuria. She also reports difficulty focusing. Objective - Vitals Vitals: Last Vital Signs Temp 36.7 C 06/02/18 10:00 Pulse 86 06/02/18 10:00 Resp 18 06/02/18 10:00 BP 141/77 06/02/18 10:00 Pulse Ox 98 06/02/18 10:00 - Exam Constitutional: Present: Alert, Oriented x3, Cooperative ENT Exam: Present: hearing grossly normal Respiratory: Present: lungs clear, normal breath sounds Cardiovascular/Chest: Present: regular rate, rhythm, no murmur Abdomen: Present: Normal bowel sounds, soft, nontender, nondistended Skin Exam: Present: normal color, warm/dry, other - dry clustered macular rash to right butt cheek Appearance: Present: appropriate appearance, appropriate insight Eye contact: Present: normal speech Assessment/Plan Plan Narrative: Gertrude is a 63 yo female with: 1) Intractable Pain of back - Improved, continue prednisone, IV toradol, oral diluadid prn. Able to work with PT today, continue PT. Unsafe for home discharge will plan to discharge to [facility] for [facility] tomorrow. 2) Dysuria - Will check UA, culture if indicated. UA on admission was negative. 3) Shingles - Rash is dry and not painful. May discontinue valtrex. - Problems/Diagnosis (1) Intractable neuropathic pain of lumbosacral origin Problem: Acute (2) Bilateral leg weakness Problem: Acute (3) Diabetes type 2, controlled Problem: Chronic Qualifiers: Diabetes mellitus correction insulin use: without correction use Diabetes mellitus complication status: without complication Qualified Code(s): E11.9 - Type 2 diabetes mellitus without complications (4) Dysuria Problem: Acute (5) Herpes zoster Problem: Acute Qualifiers: Herpes zoster complications: without complications Qualified Code(s): B02.9 - Zoster without complications (6) Left leg numbness Problem: Acute
[2018-06-02 18:41] LABS: Urine Bilirubin Negative (NEGATIVE); Urine Blood 25 /ul (NEGATIVE); Urine Ketone Negative (NEGATIVE); Urine Nitrite Negative (NEGATIVE); Urine Protein Negative (NEGATIVE); Urine Specific Gravity 1.015 SP.GR. (1.005-1.010); Urine Urobilinogen Normal (NORMAL)
[2018-06-02 18:44] LABS: Urine Color Yellow
[2018-06-02 18:47] LABS: Urine Appearance Clear (CLEAR); Urine Bacteria TRACE; Urine RBC None Seen /hpf (0-5); Urine WBC TRACE /hpf (0-5)
[2018-06-03] MEDS: PANTOPRAZOLE SODIUM 20 MG TABLET.DR PO SCH (07:07)
[2018-06-03] MEDS: LEVOTHYROXINE SODIUM 112 MCG TABLET PO SCH (07:07)
[2018-06-03] MEDS: PRAMIPEXOLE DI-HCL 0.5 MG TABLET PO SCH (08:40)
[2018-06-03] MEDS: ASPIRIN 81 MG TABLET.DR PO SCH (08:41)
[2018-06-03] MEDS: DULoxetine HCL 30 MG CAPSULE.SA PO SCH (08:41)
[2018-06-03] MEDS: TOPIRAMATE 50 MG TABLET PO SCH (08:41)
[2018-06-03] MEDS: metFORMIN HCL 500 MG TABLET PO SCH (08:41)
[2018-06-03] MEDS: FUROSEMIDE 20 MG TABLET PO SCH (08:42)
[2018-06-03] MEDS: CHOLESTYRAMINE/SUCROSE 4 GM PACKET PO SCH (08:42)
[2018-06-03] MEDS: HYDROmorphone HCL 2 MG TABLET PO PRN (08:42)
[2018-06-03] MEDS: METOPROLOL SUCCINATE 100 MG TABLET.SA PO SCH (08:43)
[2018-06-03] MEDS: ENALAPRIL MALEATE 20 MG TABLET PO SCH (08:43)
[2018-06-03] MEDS: predniSONE 20 MG TABLET PO SCH (08:44)
[2018-06-03] MEDS: CHOLECALCIFEROL 1,000 UNIT CAPSULE PO SCH (08:44)
[2018-06-03] MEDS: FLUCONAZOLE 200 MG TABLET PO SCH (08:44)
[2018-06-03] MEDS: NYSTATIN 15 APPL BTL TP SCH (08:44)
[2018-06-03] MEDS: DICLOFENAC SODIUM 100 APPL TUBE TP SCH (08:45)
[2018-06-03] MEDS: Cyclosporine [Restasis Multidose] OP SCH (08:45)
--- NOTE | 2018-06-03 09:32 | DS ---
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 She also has left leg neuropathy that occurred prior to surgery from nerve injury. Due to requiring IV pain medication, IV steroids, and being unsafe for home due to significant pain and weakness she was admitted to inpatient. She received IV toradol, dilaudid for pain control, and IV decadron to help with potential swelling at surgical site. She improved and was changed to oral prednisone and oral dilaudid. Her pain is now controlled and her strength is improved but she is still too weak for home discharge. She will be discharged to SNF at [facility] for additional therapy. Procedures Performed: none Results and Findings: Pending Mircobiology Results 05/30/18 20:00 Blood Blood Culture - Preliminary NO GROWTH AFTER 48 HOURS 05/30/18 19:15 Blood Blood Culture - Preliminary NO GROWTH AFTER 48 HOURS Lab Pending Results 05/30/18 19:15: WBC 12.5 H, RBC 4.50, Hgb 11.3 L, Hct 38.7, MCV 86.0, MCH 25.1 L, MCHC 29.2 L, RDW 15.5 H, Plt Count 361, MPV 8.8, Immature Gran % (Auto) 0.60 H, Immature Gran # (Auto) 0.07 H, Neutrophils % 72.4, Lymphocytes % 13.4 L, Monocytes % 9.1 H, Eosinophils % 4.3 H, Basophils % 0.2, Nucleated RBC % 0.0, Neutrophils # 9.0 H, Lymphocytes # 1.67, Monocytes # 1.1 H, Eosinophils # 0.5, Absolute Basophils 0.0 05/30/18 19:15: Sodium 142, Plasma Sodium 142, Potassium 4.0, Chloride 103, Carbon Dioxide 31.9, Anion Gap 11.1, BUN 17, Creatinine 0.83, Est GFR (Non-Af Amer) 73, BUN/Creatinine Ratio 20.5, Random Glucose 123 H, Calcium 8.8, Calcium Adj for Albumin 9.2, Total Bilirubin 0.3, AST 36, ALT 45, Alkaline Phosphatase 147, Total Protein 7.0, Albumin 3.1 L 05/30/18 20:00: Lactic Acid, Venous 1.2 05/30/18 20:06: Urine Color Yellow, Urine Appearance Clear, Urine pH 6.0, Ur Specific [place] 1.020, Urine Protein Negative, Urine Glucose (UA) Negative, Urine Ketones Negative, Urine Blood 150 H, Urine Nitrate Negative, Urine Bilirubin Negative, Urine Urobilinogen Normal, Ur Leukocyte Esterase Negative, Urine RBC 0-5, Urine WBC None seen, Ur Epithelial Cells None seen, Urine Bacteria None seen, Urine Culture Comments No culture indicated 05/31/18 05:55: WBC 13.9 H, RBC 4.28, Hgb 10.7 L, Hct 36.3 L, MCV 84.8, MCH 25.0 L, MCHC 29.5 L, RDW 15.3 H, Plt Count 335, MPV 9.0, Immature Gran % (Auto) 0.80 H, Immature Gran # (Auto) 0.11 H, Neutrophils % 89.4 H, Lymphocytes % 7.4 L, Monocytes % 2.1, Eosinophils % 0.1, Basophils % 0.2, Nucleated RBC % 0.0, Neutrophils # 12.4 H, Lymphocytes # 1.02 L, Monocytes # 0.3, Eosinophils # 0.0, Absolute Basophils 0.0 05/31/18 05:55: Sodium 141, Plasma Sodium 143 H, Potassium 4.2, Chloride 104, Carbon Dioxide 28.4, Anion Gap 12.8, BUN 18, Creatinine 0.85, Est GFR (Non-Af Amer) 71, BUN/Creatinine Ratio 21.2, Random Glucose 226 H D, Calcium 8.6 06/02/18 18:15: Urine Color Yellow, Urine Appearance Clear, Urine pH 6.0, Ur Specific [place] 1.015, Urine Protein Negative, Urine Glucose (UA) Negative, Urine Ketones Negative, Urine Blood 25 H, Urine Nitrate Negative, Urine Bilirubin Negative, Urine Urobilinogen Normal, Ur Leukocyte Esterase Negative, Urine RBC None seen, Urine WBC Trace H, Ur Epithelial Cells Trace, Urine B acteria Trace, Urine Culture Comments No culture indicated Discharge Location: [facility] Disposition: SNF Condition: Fair Level of Care: SNF Discharge Activity: Activity as tolerated Discharge Diet: General/regular food [facility] Therapy: Physicial Therapy, Occupation Therapy Referrals: Manuel Valencia DO [Primary Care Provider] - One Week Problem Oriented Discharge Instructions to Patient/Family: Back Pain, Adult Additional Patient Instructions (free text): Make follow up appointment with Dr Valencia. He will not round on her at the [facility]. Prescriptions (Any new or edited meds): buPROPion HCL [Wellbutrin Xl] 150 mg PO DAILY #90 tab HYDROcodone/ACETAMINOPHEN [[place] 5-325] 1 tab PO Q8H PRN #90 tab PRN Reason: Moderate Pain (Pain Scale 4-6) HYDROmorphone HCL [Dilaudid] 2 mg PO Q4H PRN #60 tablet PRN Reason: Severe Pain (Pain Scale 7-10) predniSONE [Prednisone] 40 mg PO DAILY #25 tablet Complete Home Medications List: Complete Home Medication List: Benazepril HCl [Lotensin] 40 mg PO DAILY 01/30/13 metFORMIN HCL [Glucophage] 500 mg PO BID 03/07/14 Topiramate [Topamax] 100 mg PO DAILY 05/24/16 Duloxetine HCl [Cymbalta] 60 mg PO BID 11/08/16 Pramipexole Di-HCl [Pramipexole Dihydrochloride] 2 mg PO BID 11/08/16 Aspirin [Aspir-Low] 81 mg PO DAILY #30 tablet.dr 12/19/16 cyclosporine 0.05 % eye drops 1 drp OP Q12H 02/20/18 diclofenac 1 % topical gel 2 g TP QID 02/20/18 furosemide 20 mg tablet 20 mg PO DAILY 02/20/18 cholecalciferol (vitamin D3) 1,000 unit capsule 1,000 unit PO DAILY #30 cap 03/26/18 levothyroxine 112 mcg tablet 224 mcg PO DAILY #180 tab 03/26/18 omeprazole 20 mg tablet,delayed release 20 mg PO BID #180 tab 05/18/18 cholestyramine-aspartame 4 gram oral powder 4 g PO DAILY #210 g 05/21/18 Metoprolol Succinate [Toprol Xl] 100 mg PO DAILY 05/30/18 Fluticasone/Salmeterol [Advair 250-50 Diskus] 1 puff IH BID 06/01/18 Acetaminophen [Tylenol] 1,000 mg PO Q6H PRN tablet 06/03/18 Cholestyramine/Sucrose [Questran Packet] 4 gm PO DAILY packet 06/03/18 HYDROcodone/ACETAMINOPHEN [[place] 5-325] 1 tab PO Q8H PRN #90 tab 06/03/18 HYDROmorphone HCL [Dilaudid] 2 mg PO Q4H PRN #60 tablet 06/03/18 buPROPion HCL [Wellbutrin Xl] 150 mg PO DAILY #90 tab 06/03/18 predniSONE [Prednisone] 40 mg PO DAILY #25 tablet 06/03/18
[2018-06-03 10:00] VITALS: BP 145/81
== END 2018-06-03 10:20 | DRG 74 ==
LOC: MS 17:57 → ER 17:57 → MS 21:45
PROVIDERS: ADMIT Family Medicine; ATTEND Family Medicine
DX: M54.5 Low back pain
CPT/HCPCS: 36415; 72131; 80048; 80053; 81001; 83605; 85025; 87040; 87081; 94660; 96372; 96374; 96375; 97110; 97116; 97162; 99285

== ENCOUNTER 2018-11-06 02:14 | Inpatient (IN) ==
[2018-11-06 02:58] LABS: Hematocrit 35.5 % (37.0-47.0); Hemoglobin 10.2 gm/dL (12.5-16.0); Mean Cell Volume 82.6 fl (78-100); Mean Corpuscular Hemoglobin 23.7 pg (27-31); Mean Corpuscular Hgb Conc 28.7 g/dl (32-36); Mean Platelet Volume 9.1 fl (8-12.5); Neutrophil # 8.8 K/mm3 (1.3-6.0); Neutrophil % 72.4 % (42-75.0); Platelet Count 351 K/mm3 (150-450); Red Cell Distribution Width 17.5 % (11.5-14.0); White Blood Count 12.2 K/mm3 (4.0-10.5)
[2018-11-06 03:19] LABS: ALT 13 U/L (19-67); AST 11 U/L (0-48); Albumin * 3.1 gm/dl (3.4-5.0); Alkaline Phosphatase * 109 U/L (50-170); BNP * 327 pg/mL (5-325); BUN/Creatinine Ratio 22.3 (9.0-21.6); Bilirubin, Total 0.2 mg/dL (0.0-1.1); Blood Urea Nitrogen 21 mg/dL (3-23); Ca. Corrected For Albumin 9.8 mg/dL (8.4-10.2); Calcium * 9.4 mg/dL (7.9-10.9); Carbon Dioxide 23.9 mmol/L (24-32.6); Chloride 109 mmol/L (97-106); Glucose * 129 mg/dL (70-110); Potassium 3.9 mmol/L (3.4-4.6); Sodium 146 mmol/L (132-142); Total Protein 6.8 gm/dL (6.2-8.2); Troponin I Less than 0.017 ng/mL (0.00-0.10)
[2018-11-06 03:36] LABS: Urine Bilirubin Negative (NEGATIVE); Urine Blood 5 /ul (NEGATIVE); Urine Ketone Negative (NEGATIVE); Urine Nitrite Positive (NEGATIVE); Urine Protein Negative (NEGATIVE); Urine Specific Gravity 1.025 SP.GR. (1.005-1.010); Urine Urobilinogen Normal (NORMAL)
[2018-11-06 03:37] LABS: Urine Appearance Cloudy (CLEAR); Urine Bacteria 4+; Urine Color Yellow; Urine RBC TRACE /hpf (0-5)
--- NOTE | 2018-11-06 03:49 | ERNOTE ---
Lower Extremity HPI - Narrative Date of Service: 11/06/18 - General Lower Extremities Pain: hip: left Time Seen by Provider: 11/06/18 02:32 Source: patient, family Exam Limitations: no limitations - Immun/Allergies/Home Medications Immunizations: IMMUNIZATION HX Immunizations Up to Date Yes History of Influenza Vaccine Yes Hx Pneumococcal Vaccination No Allergies/Adverse Reactions: Allergies Allergy/AdvReac Type Severity Reaction Status Date / Time ciprofloxacin HCl Allergy Mild hot and Verified 11/06/18 02:26 [From Cipro] itching Home Medications: HOME MEDICATIONS Topiramate [Topamax] 100 mg PO DAILY 05/24/16 [Last Taken Unknown] Aspirin [Aspir-Low] 81 mg PO DAILY #30 tablet. 12/19/16 [Last Taken Unknown] cholecalciferol (vitamin D3) 1,000 unit capsule 1,000 unit PO DAILY #30 cap 03/26/18 [Last Taken Unknown] Fluticasone Propion/Salmeterol [Advair 250-50 Diskus] 1 puff INHALATION BID 06/01/18 [Last Taken Unknown] Acetaminophen [Tylenol] 1,000 mg PO Q6H PRN tab 06/03/18 [Last Taken Unknown] metformin 1,000 mg tablet 1,000 mg PO BID #180 tab 07/28/18 [Last Taken Unknown] benazepril 40 mg tablet 40 mg PO DAILY #90 tab 09/29/18 [Last Taken Unknown] bupropion HCl XL 150 mg 24 hr tablet, extended release 150 mg PO DAILY #90 tab 09/29/18 [Last Taken Unknown] ferrous sulfate 325 mg (65 mg iron) tablet 325 mg PO DAILY #90 tab 09/29/18 [Last Taken Unknown] levothyroxine 200 mcg tablet 200 mcg PO DAILY #90 tab 09/29/18 [Last Taken Unknown] levothyroxine 50 mcg tablet 50 mcg PO DAILY #90 tab 09/29/18 [Last Taken Unknown] metoprolol tartrate 50 mg tablet 50 mg PO BID #180 tab 09/29/18 [Last Taken Unknown] omeprazole 20 mg capsule,delayed release 20 mg PO BID #180 cap 09/29/18 [Last Taken Unknown] pramipexole 1 mg tablet 2 mg PO BID #180 tab 09/29/18 [Last Taken Unknown] simvastatin 40 mg tablet 40 mg PO DAILY #90 tab 09/29/18 [Last Taken Unknown] sitagliptin 100 mg tablet 100 mg PO DAILY #30 tab 09/29/18 [Last Taken Unknown] pregabalin 75 mg capsule 75 mg PO TID #90 cap 10/13/18 [Last Taken Unknown] acetaminophen 300 mg-codeine 30 mg tablet 1 tab PO Q6H PRN #60 tab 10/16/18 [Last Taken Unknown] duloxetine 60 mg capsule,delayed release 60 mg PO BID #60 cap 11/05/18 [Last Taken Unknown] metolazone 5 mg tablet 5 mg PO DAILY #30 tab 11/05/18 [Last Taken Unknown] Furosemide [Lasix] 40 mg PO DAILY 11/06/18 [Last Taken Unknown] - History of Present Illness Narrative: patient presents to ed with c/o increased peripheral edema, left hip pain,was seen by fp yesterday Occurred: last week Method of Injury: Reports: no apparent injury Reason for Fall: Reports: lost balance, slipped Loss of Consciousness: Reports: no loss of consciousness Modifying Factors - (Improves): Reports: other - nothinig Modifying Factors - (Worsens): Reports: movement Associated Symptoms: Reports: none Other Injuries: Reports: none Prior Treament: Reports: recently seen, treated by physician Review of Systems - Review of Systems Constitutional: Present: See HPI EYE: Present: no symptoms reported ENT: Present: no symptoms reported Respiratory: Present: shortness of breath Cardiology: Present: no symptoms reported Gastrointestinal/Abdominal: Present: no symptoms reported Genitourinary: Present: no symptoms reported Musculoskeletal: Present: See HPI, muscle pain, muscle stiffness, joint pain Skin: Present: no symptoms reported Neurological: Present: no symptoms reported Endocrine: Present: no symptoms reported Hematologic/Lymphatic: Present: no symptoms reported Psych: Present: no symptoms reported All Other Systems: All systems neg except as marked Medical History (Updated 11/05/18 @ 17:05 by Hugh Zhu DO) Congestive heart failure with left ventricular diastolic dysfunction, NYHA class 3 (Chronic) Edema noted on examination (Chronic) Her she has swelling up into the waist area that is palpable. The lower legs are taut and shiny and tender. No cellulitis is present. She is having orthopnea. Her O2 sats however are 97 to 100% on room air while ambulating so she does not qualify for oxygen today. She gets short of breath and just talking and is awakened when she is trying to sleep. She is been wearing her CPAP even when awake trying to get more air at home. I suspect she has significant mesentery edema and probably not really absorbing her p.o. meds very well. Uncontrolled diabetes mellitus with diabetic polyneuropathy (Chronic) Type II diabetes mellitus (Chronic) Fatigue (Chronic) Hypothyroidism (Chronic) Has daytime drowsiness (Chronic) Onychomycosis Onset Date: Unknown Arthritis Onset Date: Unknown Diabetes mellitus, type II Onset Date: Unknown Hyperlipidemia Onset Date: 08/26/16 Hypertension Onset Date: Unknown Hypothyroidism Onset Date: Unknown IBS (irritable bowel syndrome) Onset Date: Unknown Joint pain Onset Date: Unknown Macular degeneration Onset Date: Unknown Thyroid disease Onset Date: Unknown Weakness Onset Date: Unknown Abnormal granulation tissue Onset Date: 08/15/11 Carpal tunnel syndrome Onset Date: Unknown Headache Onset Date: Unknown Rotator cuff tear Onset Date: 2014 left Surgical History: Surgical History (Updated 08/10/18 @ 15:17 by Poonam Mehta LPN) excision bone spur bilateral feet 08/03/2018 Dr. Sage H/O arthroscopic knee surgery Onset Date: Unknown Left Dr. Avila 01/04/2004 Right 01/03/2003 H/O dilation and curettage Onset Date: 03/2008 Dr. Campbell H/O neck surgery Onset Date: 2012 cervical disc decompression w/fusion of cervical spinal cord C5-6 H/O shoulder replacement Onset Date: 11/06/15 Dr. Mary History of back surgery Onset Date: Unknown History of carpal tunnel release Onset Date: 2008 Dr. Mary, bilaeral History of cataract removal with insertion of prosthetic lens Onset Date: Unknown 07/12/13 left 08/23/13 right History of colonoscopy Onset Date: 11/18/162007 Dr. Peacock bx negative 11/18/16 Tania, diverticulosis, lucero 10 yrs History of esophagogastroduodenoscopy (EGD) Onset Date: 08/08/99 Tinguely, with biopsy, Gastritis History of hysterectomy Onset Date: Unknown History of laparoscopic appendectomy Onset Date: 05/27/16 Dr. Marin History of local excision of skin lesion Onset Date: 09/14/08 Right upper back, neurofibroma right upper chest, epidermal inclusion cyst History of microdiscectomy Onset Date: 05/29/18 Dr. Hugh Fontenot, [facility]. L4-5. History of total vaginal hysterectomy (TVH) Onset Date: 05/28/11 Dr. Campbell History of tubal ligation Onset Date: 1979 Hx of cholecystectomy Onset Date: 11/18/99 Dr. Augustin Hx of umbilical hernia repair Onset Date: 11/01/99 Dr. Augustin McCradha Culdoplasty Onset Date: 05/28/11 Previous back surgery Onset Date: 06/15/17 Dr. Fontenot, laminectomy on R of L4, w/partial facetectomy laminectomy on right of L5 w/ partial medial facetectomy Rectocele, female Onset Date: Unknown repair S/P YAG capsulotomy, bilateral Onset Date: 02/08/14 Total knee replacement status Onset Date: Unknown Left 02/2008, Right 12/2006 colporrhaphy Onset Date: 05/28/11 Family History: Family History (Updated 02/20/18 @ 15:05 by Poonam Mehta LPN) Brother Pancreatitis, Onset Age: 46 Daughter Alive and well Father CVA (cerebral vascular accident), Onset Age: 70 Hypertension Arthritis Grandmother No problems noted. Grandfather No problems noted. Mother Arthritis Hypertension, Onset Age: 85 Sister Heart disease, Onset Age: 70 Sister colon issues Son Alive and well Son No problems noted. Social History: Preferred Language Beninese Smoking Status Never smoker Abuse History No History of abuse Psych History Hx of Depression,Currently on Meds Alcohol Use none Drug Use none (Last Updated 11/05/18 @ 17:09 by Hugh Zhu DO) No Social History Section defined Physical Exam - Physical Exam General Appearance: Present: moderate distress, anxious Head Exam: Present: normal inspection, no evidence of injury Eye Exam: Normal inspection: bilateral, PERRL: bilateral, EOMI: bilateral Ears, Nose, Throat: Present: normal ENT inspection, normal pharynx Neck: Present: normal inspection, nontender Respiratory: Present: crackles, rales Cardiovascular/Chest: Present: regular rate, rhythm, no murmur, normal peripheral pulses Gastrointestinal/Abdominal: Present: normal bowel sounds, nontender, nondistended, soft, no organomegaly Back Exam: Present: normal inspection, normal range of motion, no CVA tenderness, no vertebral tenderness Extremity Exam: Present: decreased range of motion, pedal edema, calf tenderness Neurological Exam: Present: alert, oriented, normal mood/affect, no motor/sensory deficits Skin Exam: Present: normal color, warm/dry Lymphatic Exam: Present: no adenopathy Progress - Date and Time Seen: Date and Time: 11/06/18 04:27 condition unchanged, case discussed with dr velazquez, to admit to observation - Results and Orders Patient's Lab Results:: I have reviewed the patient's lab results. - Vital Signs Patient's Vital Signs:: I have reviewed the patient's vital signs. Vital Signs: Vital Signs 11/06/18 02:19 11/06/18 02:27 Temperature 36.8 C Pulse Rate 88 83 Respiratory Rate 20 20 Blood Pressure 130/53 124/60 O2 Sat by Pulse Oximetry 98 96 - EKG EKG #1 EKG: NSR - X-Ray X-Ray #1 X-Ray: chest - vascular congestion - CT/Ultrasound CT/Ultrasound Narrative: no evidense of dvt - Progress/Reassessment Chief Complaint: Hip Pain/Injury Progress:: Unchanged - Transfer of Care Expected Disposition: Admit Plan - Plan Plan: to admit to observation Departure Clinical Impression: CHF (congestive heart failure), Edema noted on examination - Departure Disposition: Still a patient Condition: Stable Referrals: Hugh Zhu DO [Primary Care Provider] -
[2018-11-06] MEDS ORDERED: FUROSEMIDE 10 MG/ML VIAL IV ONE ×2 (04:26→12:59)
[2018-11-06] MEDS ORDERED: ACETAMINOPHEN WITH CODEINE 1 EACH TABLET PO ONE (04:31)
[2018-11-06] MEDS ORDERED: DEXTROSE 5 % IN WATER 100 ML BAG IV ONE (04:40)
[2018-11-06] MEDS ORDERED: FUROSEMIDE 10 MG/ML VIAL IV SCH (09:00)
[2018-11-06] MEDS ORDERED: ACETAMINOPHEN 500 MG TABLET PO PRN (12:55)
[2018-11-06 13:41] LABS: Anion Gap 17.1 mmol/L (6.8-13.8); Calcium * 9.7 mg/dL (7.9-10.9); Carbon Dioxide 28.1 mmol/L (24-32.6); Estimated Creat Clear 57.4; Potassium 4.2 mmol/L (3.4-4.6)
--- NOTE | 2018-11-06 13:46 | HP ---
Chief Complaint - Chief Complaint Date of Service: 11/06/18 Time of Service: 12:30 Chief Complaint: edema, painful legs due to swelling History of Present Illness: Gertrude Restrepo was seen in my office yesterday for bilateral leg edema, abdominal swe lling, SOB even though her O2 Sats were 97-100% while walking in the office. She is on PO Furosemide 40mg daily but I suspect was not absorbing the med due to mesenteric edema. She had a few scattered crackles in the bases but otherwise the lungs were clear. She was having some orthopnea. She was even trying to wear her C-Pap during the day to help her breath better. She does not have supplemental home O2. I ordered Metolazone 5mg to take at noon in addition to her lasix she has been taking in the morning. Even though the Rx was sent to the pharmacy it apparently was not received there and so she could not get the med.Last night her lges beganto hurt fredi much she came to the ER and was adimitted to Obs. She was given 80mg of Furosemide and she has been vigorously diuresing. The legs are not as tight and her abdominal girth has decreased. She is breathing better. She has less pain in the legs now. Her renal status is normal so she is giving up her fluids easily with IV loop diuresis. She will get Furosemide 40mg bid now IVP and I will check her e-lytes and renal status in the morning. Medical History (Updated 11/06/18 @ 04:30 by Chad Saab DO) Congestive heart failure with left ventricular diastolic dysfunction, NYHA class 3 (Chronic) Edema noted on examination (Chronic) Her she has swelling up into the waist area that is palpable. The lower legs are taut and shiny and tender. No cellulitis is present. She is having orthopnea. Her O2 sats however are 97 to 100% on room air while ambulating so she does not qualify for oxygen today. She gets short of breath and just talking and is awakened when she is trying to sleep. She is been wearing her CPAP even when awake trying to get more air at home. I suspect she has significant mesentery edema and probably not really absorbing her p.o. meds very well. Uncontrolled diabetes mellitus with diabetic polyneuropathy (Chronic) Type II diabetes mellitus (Chronic) Fatigue (Chronic) Hypothyroidism (Chronic) Has daytime drowsiness (Chronic) Onychomycosis Onset Date: Unknown Arthritis Onset Date: Unknown Diabetes mellitus, type II Onset Date: Unknown Hyperlipidemia Onset Date: 08/26/16 Hypertension Onset Date: Unknown Hypothyroidism Onset Date: Unknown IBS (irritable bowel syndrome) Onset Date: Unknown Joint pain Onset Date: Unknown Macular degeneration Onset Date: Unknown Thyroid disease Onset Date: Unknown Weakness Onset Date: Unknown Abnormal granulation tissue Onset Date: 08/15/11 Carpal tunnel syndrome Onset Date: Unknown Headache Onset Date: Unknown Rotator cuff tear Onset Date: 2014 left Surgical History: Surgical History (Updated 08/10/18 @ 15:17 by Poonam Mehta LPN) excision bone spur bilateral feet 08/03/2018 Dr. Sage H/O arthroscopic knee surgery Onset Date: Unknown Left Dr. Avila 01/04/2004 Right 01/03/2003 H/O dilation and curettage Onset Date: 03/2008 Dr. Campbell H/O neck surgery Onset Date: 2012 cervical disc decompression w/fusion of cervical spinal cord C5-6 H/O shoulder replacement Onset Date: 11/06/15 Dr. Mary History of back surgery Onset Date: Unknown History of carpal tunnel release Onset Date: 2008 Dr. Mary, bilaeral History of cataract removal with insertion of prosthetic lens Onset Date: Unknown 07/12/13 left 08/23/13 right History of colonoscopy Onset Date: 11/18/162007 Dr. Peacock bx negative 11/18/16 Tania, diverticulosis, lucero 10 yrs History of esophagogastroduodenoscopy (EGD) Onset Date: 08/08/99 Charli, with biopsy, Gastritis History of hysterectomy Onset Date: Unknown History of laparoscopic appendectomy Onset Date: 05/27/16 Dr. Marin History of local excision of skin lesion Onset Date: 09/14/08 Right upper back, neurofibroma right upper chest, epidermal inclusion cyst History of microdiscectomy Onset Date: 05/29/18 Dr. Hugh Fontenot, [facility]. L4-5. History of total vaginal hysterectomy (TVH) Onset Date: 05/28/11 Dr. Campbell History of tubal ligation Onset Date: 1979 Hx of cholecystectomy Onset Date: 11/18/99 Dr. Augustin Hx of umbilical hernia repair Onset Date: 11/01/99 Dr. Charli Morenoplasty Onset Date: 05/28/11 Previous back surgery Onset Date: 06/15/17 Dr. Fontenot, laminectomy on R of L4, w/partial facetectomy laminectomy on right of L5 w/ partial medial facetectomy Rectocele, female Onset Date: Unknown repair S/P YAG capsulotomy, bilateral Onset Date: 02/08/14 Total knee replacement status Onset Date: Unknown Left 02/2008, Right 12/2006 colporrhaphy Onset Date: 05/28/11 Family History: Family History (Updated 02/20/18 @ 15:05 by Poonam Mehta LPN) Brother Pancreatitis, Onset Age: 46 Daughter Alive and well Father CVA (cerebral vascular accident), Onset Age: 70 Hypertension Arthritis Grandmother No problems noted. Grandfather No problems noted. Mother Arthritis Hypertension, Onset Age: 85 Sister Heart disease, Onset Age: 70 Sister colon issues Son Alive and well Son No problems noted. 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 Smoking Status Former smoker Have you smoked in the past 12 No months Do you dip or chew tobacco No Abuse History No History of abuse Psych History Hx of Depression,Currently on Meds Alcohol Use none Drug Use none (Last Updated 11/05/18 @ 17:09 by Hugh Zhu DO) No Social History Section defined Review Of Systems (GEN) - Review of Systems EENTM: Present: No Symptoms Reported Respiratory: Present: Cough, Shortness of Breath, Orthopnea Cardiac: Present: No Symptoms Reported, Edema. Absent: Chest Pain, Palpitations, Syncope Abdominal: Present: Other - Abdominal bloating and distention Genitourinary: Present: No Symptoms Reported Musculoskeletal: Present: No Symptoms Reported Neurological: Present: No Symptoms Reported Skin: Present: Other - Lower legs have erythema and are thight and shiney. Palpable edema into the upper thighs and the abdomen is swollen. Endocrine: Present: No Symptoms Reported Misc: All systems neg except as marked Immunizations: IMMUNIZATION HX Immunizations Up to Date Yes History of Influenza Vaccine Yes Hx Pneumococcal Vaccination No Allergies/Adverse Reactions: Allergies Allergy/AdvReac Type Severity Reaction Status Date / Time ciprofloxacin HCl Allergy Mild hot and Verified 11/06/18 02:26 [From Cipro] itching Home Medications: HOME MEDICATIONS Topiramate [Topamax] 100 mg PO DAILY 05/24/16 [Last Taken 11/05/18] Aspirin [Aspir-Low] 81 mg PO DAILY #30 tablet. 12/19/16 [Last Taken 11/05/18] cholecalciferol (vitamin D3) 1,000 unit capsule 1,000 unit PO DAILY #30 cap 03/26/18 [Last Taken 11/05/18] Fluticasone Propion/Salmeterol [Advair 250-50 Diskus] 1 puff INHALATION BID 06/01/18 [Last Taken 11/05/18] Acetaminophen [Tylenol] 1,000 mg PO Q6H PRN tab 06/03/18 [Last Taken Unknown] metformin 1,000 mg tablet 1,000 mg PO BID #180 tab 07/28/18 [Last Taken 11/05/18] benazepril 40 mg tablet 40 mg PO DAILY #90 tab 09/29/18 [Last Taken 11/05/18] bupropion HCl XL 150 mg 24 hr tablet, extended release 150 mg PO DAILY #90 tab 09/29/18 [Last Taken Unknown] ferrous sulfate 325 mg (65 mg iron) tablet 325 mg PO DAILY #90 tab 09/29/18 [Last Taken 11/05/18] levothyroxine 200 mcg tablet 200 mcg PO DAILY #90 tab 09/29/18 [Last Taken 11/05/18] levothyroxine 50 mcg tablet 50 mcg PO DAILY #90 tab 09/29/18 [Last Taken 11/05/18] metoprolol tartrate 50 mg tablet 50 mg PO BID #180 tab 09/29/18 [Last Taken 11/05/18] omeprazole 20 mg capsule,delayed release 20 mg PO BID #180 cap 09/29/18 [Last Taken 11/05/18] pramipexole 1 mg tablet 2 mg PO BID #180 tab 09/29/18 [Last Taken 11/05/18] sitagliptin 100 mg tablet 100 mg PO DAILY #30 tab 09/29/18 [Last Taken 11/05/18] pregabalin 75 mg capsule 75 mg PO TID #90 cap 10/13/18 [Last Taken 11/05/18] acetaminophen 300 mg-codeine 30 mg tablet 1 tab PO Q6H PRN #60 tab 10/16/18 [Last Taken Unknown] duloxetine 60 mg capsule,delayed release 60 mg PO BID #60 cap 11/05/18 [Last Taken 11/05/18] metolazone 5 mg tablet 5 mg PO DAILY #30 tab 11/05/18 [Last Taken 11/05/18] Furosemide [Lasix] 40 mg PO DAILY 11/06/18 [Last Taken 11/05/18] Simvastatin 40 mg PO HS 11/06/18 [Last Taken 11/05/18] Exam - Exam Vital Signs: Vital Signs - Last Taken Temp 36.6 C 11/06/18 11:00 Pulse 84 11/06/18 11:00 Resp 20 11/06/18 11:00 BP 148/65 11/06/18 11:00 Pulse Ox 97 11/06/18 11:00 Constitutional: Present: Alert, Oriented x3, Cooperative, Well developed, Well nourished, Mild distress, Elderly, Obese ENT Exam: Present: normal ENT inspection, hearing grossly normal, pharynx normal, TMs normal Eye Exam: bilateral eye: normal inspection, PERRL, EOMI Neck: Present: non-tender, full range of motion, supple, normal inspection, trachea midline Back Exam: Present: normal inspection Breasts: Present: Exam deferred Respiratory: Present: crackles - scattered in the bases only Cardiovascular/Chest: Present: normal peripheral pulses, regular rate, rhythm, no chest tenderness, edema Peripheral Pulses: carotid (R): 2+, carotid (L): 2+, radial (R): 2+, radial (L): 2+ Abdomen: Present: Normal bowel sounds, soft, nontender, no rebound tenderness, no hepatospenomegaly, distended /Rectal: Present: Exam deferred Extremity: Present: lower extremity edema - bilateral up to the pelvis Skin Exam: Present: normal color - but with erythema in the lower extremities. 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 Appearance: Present: appropriate appearance, appropriate insight, neat, no memory impairment Eye contact: Present: cooperative, good eye contact, normal speech Thoughts: Present: normal thought pattern, no apparent hallucination Diagnostic Studies: Abnormal Lab Results 11/06/18 11/06/18 11/06/18 Range/Units 02:55 02:55 03:30 WBC 12.2 H (4.0-10.5) K/mm3 Hgb 10.2 L (12.5-16.0) gm/dL Hct 35.5 L (37.0-47.0) % MCH 23.7 L (27-31) pg MCHC 28.7 L (32-36) g/dl RDW 17.5 H (11.5-14.0) % Immature Gran # (Auto) 0.05 H (0.000-0.0310) K/mm3 Lymphocytes % 16.0 L (20-51) % Neutrophils # 8.8 H (1.3-6.0) K/mm3 Sodium 146 H (132-142) mmol/L Plasma Sodium 146 H (130-142) mmol/L Chloride 109 H (97-106) mmol/L Carbon Dioxide 23.9 L (24-32.6) mmol/L Anion Gap 17.0 H (6.8-13.8) mmol/L BUN/Creatinine Ratio 22.3 H (9.0-21.6) Random Glucose 129 H (70-110) mg/dL ALT 13 L (19-67) U/L B-Natriuretic Peptide 327 H (5-325) pg/mL Albumin 3.1 L (3.4-5.0) gm/dl Urine Blood 5 H (NEGATIVE) /ul Urine Nitrate Positive H (NEGATIVE) Ur Leukocyte Esterase 75 H (NEGATIVE) /ul Urine WBC 5-10 H (0-5) /hpf Urine Bacteria 4+ H (NONE) Laboratory Results WBC 12.2 K/mm3 (4.0-10.5) H 11/06/18 02:55 RBC 4.30 M/mm3 (4.2-5.4) 11/06/18 02:55 Hgb 10.2 gm/dL (12.5-16.0) L 11/06/18 02:55 Hct 35.5 % (37.0-47.0) L 11/06/18 02:55 MCV 82.6 fl (78-100) 11/06/18 02:55 MCH 23.7 pg (27-31) L 11/06/18 02:55 MCHC 28.7 g/dl (32-36) L 11/06/18 02:55 RDW 17.5 % (11.5-14.0) H 11/06/18 02:55 Plt Count 351 K/mm3 (150-450) 11/06/18 02:55 MPV 9.1 fl (8-12.5) 11/06/18 02:55 Immature Gran % (Auto) 0.40 % (0.001-0.429) 11/06/18 02:55 Immature Gran # (Auto) 0.05 K/mm3 (0.000-0.0310) H 11/06/18 02:55 72.4 % (42-75.0) 11/06/18 02:55 16.0 % (20-51) L 11/06/18 02:55 8.3 % (0.0-9) 11/06/18 02:55 2.5 % (0.0-3.0) 11/06/18 02:55 0.4 % (0.0-1.0) 11/06/18 02:55 Nucleated RBC % 0.0 k/mm3 (0-1) 11/06/18 02:55 8.8 K/mm3 (1.3-6.0) H 11/06/18 02:55 1.95 k/mm3 (1.5-3.5) 11/06/18 02:55 1.0 k/mm3 (0.0-1.0) 11/06/18 02:55 0.3 k/mm3 (0.0-0.7) 11/06/18 02:55 Absolute Basophils 0.1 k/mm3 (0.0-0.1) 11/06/18 02:55 Sodium 146 mmol/L (132-142) H 11/06/18 02:55 146 mmol/L (130-142) H 11/06/18 02:55 Potassium 3.9 mmol/L (3.4-4.6) 11/06/18 02:55 Chloride 109 mmol/L (97-106) H 11/06/18 02:55 Carbon Dioxide 23.9 mmol/L (24-32.6) L 11/06/18 02:55 17.0 mmol/L (6.8-13.8) H 11/06/18 02:55 BUN 21 mg/dL (3-23) 11/06/18 02:55 0.94 mg/dL (0.4-1.4) 11/06/18 02:55 Est GFR (Non-Af Amer) 64 mL/min (60-130) 11/06/18 02:55 22.3 (9.0-21.6) H 11/06/18 02:55 129 mg/dL (70-110) H 11/06/18 02:55 Calcium 9.4 mg/dL (7.9-10.9) 11/06/18 02:55 Calcium Adj for Albumin 9.8 mg/dL (8.4-10.2) 11/06/18 02:55 0.2 mg/dL (0.0-1.1) 11/06/18 02:55 AST 11 U/L (0-48) 11/06/18 02:55 ALT 13 U/L (19-67) L 11/06/18 02:55 109 U/L (50-170) 11/06/18 02:55 Less than 0.017 ng/mL (0.00-0.10) 11/06/18 02:55 B-Natriuretic Peptide 327 pg/mL (5-325) H 11/06/18 02:55 6.8 gm/dL (6.2-8.2) 11/06/18 02:55 3.1 gm/dl (3.4-5.0) L 11/06/18 02:55 Yellow 11/06/18 03:30 Cloudy (CLEAR) 11/06/18 03:30 6.0 pH (5.0-7.0) 11/06/18 03:30 Ur Specific Adkins 1.025 SP.GR. (1.005-1.010) 11/06/18 03:30 Negative mg/dL (NEGATIVE) 11/06/18 03:30 Negative mg/dL (NEGATIVE) 11/06/18 03:30 Negative mg/dL (NEGATIVE) 11/06/18 03:30 5 /ul (NEGATIVE) H 11/06/18 03:30 Positive (NEGATIVE) H 11/06/18 03:30 Negative mg/dl (NEGATIVE) 11/06/18 03:30 Normal EU/dl (NORMAL) 11/06/18 03:30 Ur Leukocyte Esterase 75 /ul (NEGATIVE) H 11/06/18 03:30 Trace /hpf (0-5) 11/06/18 03:30 5-10 /hpf (0-5) H 11/06/18 03:30 Ur Epithelial Cells 0-5 /hpf (0-5) 11/06/18 03:30 4+ (NONE) H 11/06/18 03:30 Culture to follow 11/06/18 03:30 Assessment/Plan - Narrative Narrative: 1. Continue to [place] with Furosemide at 40mg bid 2. Check e-lyets and cbc on the morning 3. Wt. daily 4. Anticipate discharge tomorrow morning. - Assessment/Plan (1) Congestive heart failure with left ventricular diastolic dysfunction, NYHA class 3 Problem: Chronic (2) Edema noted on examination Problem: Chronic (3) Type II diabetes mellitus Problem: Chronic Qualifiers: Diabetes mellitus group home insulin use: without group home use Diabetes mellitus complication status: without complication Qualified Code(s): E11.9 - Type 2 diabetes mellitus without complications (4) Obesity (BMI 35.0-39.9 without comorbidity) Problem: Chronic (5) Hypothyroidism Problem: Chronic Qualifiers: Hypothyroidism type: acquired Qualified Code(s): E03.9 - Hypothyroidism, unspecified
[2018-11-06] MEDS ORDERED: METOPROLOL TARTRATE 50 MG TABLET PO SCH (21:00)
[2018-11-06] MEDS: FLUTICASONE PROPION/SALMETEROL 14 PUFF DISK.W.DEV IH SCH (21:51)
[2018-11-06] MEDS: DULoxetine HCL 30 MG CAPSULE.SA PO SCH (21:52)
[2018-11-06] MEDS: PRAMIPEXOLE DI-HCL 0.5 MG TABLET PO SCH (21:53)
[2018-11-06] MEDS: PANTOPRAZOLE SODIUM 20 MG TABLET.DR PO SCH (21:56)
[2018-11-06] MEDS: FUROSEMIDE 10 MG/ML VIAL IV SCH (21:57)
[2018-11-07] MEDS: ACETAMINOPHEN WITH CODEINE 1 EACH TABLET PO PRN ×2 (00:34→13:15)
[2018-11-07] MEDS ORDERED: DILTIAZEM HCL 5 MG/ML VIAL IV ONE ×2 (03:59→05:32)
[2018-11-07] MEDS ORDERED: MAG HYDROX/ALUMINUM HYD/SIMETH 30 ML UDC PO ONE (04:01)
[2018-11-07] MEDS ORDERED: ACETAMINOPHEN 325 MG TABLET PO ONE (04:02)
[2018-11-07 06:06] LABS: Hematocrit 38.9 % (37.0-47.0); Hemoglobin 11.4 gm/dL (12.5-16.0); Mean Cell Volume 80.9 fl (78-100); Mean Corpuscular Hemoglobin 23.7 pg (27-31); Mean Corpuscular Hgb Conc 29.3 g/dl (32-36); Mean Platelet Volume 8.9 fl (8-12.5); Neutrophil # 10.5 K/mm3 (1.3-6.0); Platelet Count 345 K/mm3 (150-450); Red Blood Count 4.81 M/mm3 (4.2-5.4); Red Cell Distribution Width 17.2 % (11.5-14.0); White Blood Count 13.3 K/mm3 (4.0-10.5)
[2018-11-07 06:30] LABS: BUN/Creatinine Ratio 23.8 (9.0-21.6); Blood Urea Nitrogen 24 mg/dL (3-23); Calcium * 9.3 mg/dL (7.9-10.9); Carbon Dioxide 24.8 mmol/L (24-32.6); Chloride 103 mmol/L (97-106); Glucose * 187 mg/dL (70-110); Potassium 3.8 mmol/L (3.4-4.6); Sodium 142 mmol/L (132-142); TSH * 0.111 uIU/mL (0.358-3.74); Troponin I Less than 0.017 ng/mL (0.00-0.10)
[2018-11-07] MEDS ORDERED: LEVOTHYROXINE SODIUM 50 MCG TABLET PO SCH (07:00)
[2018-11-07] MEDS ORDERED: LEVOTHYROXINE SODIUM 100 MCG TABLET PO SCH (07:00)
[2018-11-07] MEDS ORDERED: NITROGLYCERIN 0.4 MG/TAB BTL SL PRN (07:17)
[2018-11-07] MEDS ORDERED: METOPROLOL TARTRATE 100 MG TABLET PO ONE (07:35)
[2018-11-07] MEDS ORDERED: ENALAPRIL MALEATE 20 MG TABLET PO SCH (09:00)
[2018-11-07] MEDS ORDERED: METOPROLOL TARTRATE 1 MG/ML AMPUL IV ONE ×2 (09:29→13:30)
--- NOTE | 2018-11-07 09:44 | PN ---
[facility] Note - Interim Date: 11/07/18 Time: :28 Narrative: 11/07/18 09:28 was called last night for patient with h/o chronic AFib but now with RVR with epigastric pain not relieved with tylenol/acetominophen. EKG showed AFib and troponin was negative. gave IV cardizem bolus and maalox with no success. still RVR with chest pain this time. gave cardizem bolus and ordered for repeat EKG and troponin, and add BMP, TSH. Her BNP was only 375 on admission. EKG showed AFib with non sepecific ST changes, negative troponin, normal electrolytes, but low TSH. she take 225 mcg of Levothyroxine and I put on it hold and deferred cardizem drip and advanced her Metoprolol at higher dose to block peripheral effects of thryorid hormone. NTG given which gave relief. Angina likely due to increased rate and demand ischemia. 5 mg IV lopressor given. She is not on anticoagulation. if she continues to have RVR, consider P.E. although her US of her lower extremity yesterday showed no DVT. Dr. Zhu will be here to make rounds on the patient as per nurses. Note: my phone automatically went to sleep and blocked my calls w/o me realizing it and as per nurse the home phone was saying out of service (?).
[2018-11-07] MEDS: DULoxetine HCL 30 MG CAPSULE.SA PO SCH ×2 (09:48→20:53)
[2018-11-07] MEDS: ASPIRIN 81 MG TABLET.DR PO SCH (09:48)
[2018-11-07] MEDS: FERROUS SULFATE 325 MG TABLET PO SCH (09:48)
[2018-11-07] MEDS: sitaGLIPtin PHOSPHATE 50 MG TABLET PO SCH (09:49)
[2018-11-07] MEDS: FUROSEMIDE 10 MG/ML VIAL IV SCH (09:50)
[2018-11-07] MEDS: METOPROLOL TARTRATE 100 MG TABLET PO SCH ×2 (09:50→20:54)
[2018-11-07] MEDS: FLUTICASONE PROPION/SALMETEROL 14 PUFF DISK.W.DEV IH SCH ×2 (09:51→20:48)
[2018-11-07] MEDS: PRAMIPEXOLE DI-HCL 0.5 MG TABLET PO SCH ×2 (09:51→20:51)
[2018-11-07] MEDS: TOPIRAMATE 50 MG TABLET PO SCH (09:52)
[2018-11-07] MEDS: buPROPion HCL 150 MG TAB.SR.24H PO SCH (09:53)
[2018-11-07] MEDS: NYSTATIN 15 APPL BTL TP SCH ×2 (10:02→20:54)
[2018-11-07] MEDS: PANTOPRAZOLE SODIUM 20 MG TABLET.DR PO SCH ×2 (10:05→20:55)
--- NOTE | 2018-11-07 14:51 | PN ---
Subjective - Date and Time Seen Date: 11/07/18 Time: 14:00 Subjective Narrative: Gertrude has diuresed off about 4 kg. The edema is much improved. However she went into Atrial fib with RVR last night. Dr. Giang graciously treated her with MetoprololIV and PO. Unfortunately she has not converted to NSR and her rate remains in the 114-130 range. She has had some chest pain relieved with ntg. She is pain free now vbut had had some CP during lunch today. Her lab shows her K+ @ 3.8. Her EGFR has dropped from6.7 to 5.7. BUN anc creat are only mildly changed. WBC is up to 13,600. Urine C&S is growing out a gram neg bacillus. Sensativity report erxpected tomorrow. Currently on Rocephin and I will continue that Until the Sens. report is available. I will switch her Furosemide to Oral now and keep it at 40 mg po at 1300 daily. Dig level ordered for Friday morning. ECG and morning lab ordered for tomorrow. Objective - Review of Systems Generalized/Overall Review: Reports: Fatigue EENTM: Reports: No Symptoms Reported Respiratory: Reports: Cough, Shortness of Breath Cardiac: Reports: Chest Pain, Palpitations Abdominal: Reports: No Symptoms Reported Genitourinary Symptoms: Reports: Dysuria Musculoskeletal Complaints: Reports: No Symptoms Reported Neurological: Reports: No Symptoms Reported Skin: Reports: No Symptoms Reported, Change in Color - Legs are less ladi and the edema is palpably gone. Endocrine: Reports: No Symptoms Reported - Vitals Vitals: Last Vital Signs Temp 36.4 C 11/07/18 12:00 Pulse 117 H 11/07/18 14:29 Resp 22 H 11/07/18 12:00 BP 120/70 11/07/18 14:29 Pulse Ox 98 11/07/18 12:00 - Abnormal Lab Findings Abnormal Lab Findings: Abnormal Lab Results 11/07/18 11/07/18 Range/Units 06:00 06:00 WBC 13.3 H (4.0-10.5) K/mm3 Hgb 11.4 L (12.5-16.0) gm/dL MCH 23.7 L (27-31) pg MCHC 29.3 L (32-36) g/dl RDW 17.2 H (11.5-14.0) % Immature Gran # (Auto) 0.04 H (0.000-0.0310) K/mm3 Neutrophils % 79.0 H (42-75.0) % Lymphocytes % 12.2 L (20-51) % Neutrophils # 10.5 H (1.3-6.0) K/mm3 Plasma Sodium 143 H (130-142) mmol/L Anion Gap 18.0 H (6.8-13.8) mmol/L BUN 24 H (3-23) mg/dL Est GFR (Non-Af Amer) 58 L (60-130) mL/min BUN/Creatinine Ratio 23.8 H (9.0-21.6) Random Glucose 187 H (70-110) mg/dL TSH 0.111 L (0.358-3.74) uIU/mL - EKG/Xray Findings XRAY: facial bones - Exam Constitutional: Present: Alert, Oriented x3, Cooperative, Well developed, Well nourished, No distress ENT Exam: Present: normal ENT inspection, hearing grossly normal, pharynx normal, TMs normal Neck: Present: non-tender, supple, normal inspection, trachea midline, limited range of motion Breasts: Present: Exam deferred Respiratory: Present: chest non-tender, lungs clear, normal breath sounds, no respiratory distress, no accessory muscle use Cardiovascular/Chest: Present: normal peripheral pulses, no chest tenderness, no edema, tachycardia, irregularly irregular Abdomen: Present: Normal bowel sounds, soft, nontender, nondistended - ABdominal swelling is gone. /Rectal: Present: Exam deferred Extremity: Present: normal range of motion. 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 Begin dig Continueous cardiac monitoring. Add potassium 20meq/day. Continue the Metoprolol and Rocephin as is. Recheck morning lab. Add VTEs. 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 use: without termite treater use Diabetes mellitus complication status: without complication Qualified Code(s): E11.9 - Type 2 diabetes mellitus without complications (4) Obesity (BMI 35.0-39.9 without comorbidity) Problem: Chronic (5) Hypothyroidism Problem: Chronic Qualifiers: Hypothyroidism type: acquired Qualified Code(s): E03.9 - Hypothyroidism, unspecified (6) Atrial fibrillation with rapid ventricular response Problem: Acute (7) Chest pain Problem: Acute Qualifiers: Chest pain type: precordial pain Qualified Code(s): R07.2 - Precordial pain (8) UTI (urinary tract infection) Problem: Acute Qualifiers: Urinary tract infection type: acute cystitis Hematuria presence: without hematuria Qualified Code(s): N30.00 - Acute cystitis without hematuria
[2018-11-07] MEDS: POTASSIUM CHLORIDE 20 MEQ TABLET.SA PO SCH (15:25)
[2018-11-07] MEDS: DIGOXIN 0.25 MG TABLET PO SCH (15:25)
[2018-11-07] MEDS ORDERED: DIGOXIN 0.25 MG TABLET PO ONE (21:00)
[2018-11-08] MEDS ORDERED: METOPROLOL TARTRATE 1 MG/ML AMPUL IV ONE (03:01)
[2018-11-08 06:15] LABS: Hematocrit 40.2 % (37.0-47.0); Hemoglobin 11.7 gm/dL (12.5-16.0); Mean Cell Volume 81.9 fl (78-100); Mean Corpuscular Hemoglobin 23.8 pg (27-31); Mean Corpuscular Hgb Conc 29.1 g/dl (32-36); Mean Platelet Volume 9.4 fl (8-12.5); Neutrophil # 7.2 K/mm3 (1.3-6.0); Neutrophil % 69.4 % (42-75.0); Platelet Count 393 K/mm3 (150-450); Red Blood Count 4.91 M/mm3 (4.2-5.4); Red Cell Distribution Width 17.7 % (11.5-14.0); White Blood Count 10.4 K/mm3 (4.0-10.5)
[2018-11-08 06:28] LABS: Anion Gap 16.2 mmol/L (6.8-13.8); BUN/Creatinine Ratio 20.8 (9.0-21.6); Bilirubin, Total 0.3 mg/dL (0.0-1.1); Ca. Corrected For Albumin 9.6 mg/dL (8.4-10.2); Calcium * 9.1 mg/dL (7.9-10.9); Potassium 4.2 mmol/L (3.4-4.6); Total Protein 7.1 gm/dL (6.2-8.2)
[2018-11-08] MEDS: ACETAMINOPHEN WITH CODEINE 1 EACH TABLET PO PRN (06:38)
[2018-11-08] MEDS: PANTOPRAZOLE SODIUM 20 MG TABLET.DR PO SCH (08:37)
[2018-11-08] MEDS: NYSTATIN 15 APPL BTL TP SCH (08:37)
[2018-11-08] MEDS: FERROUS SULFATE 325 MG TABLET PO SCH (08:37)
[2018-11-08] MEDS: TOPIRAMATE 50 MG TABLET PO SCH (08:37)
[2018-11-08] MEDS: FLUTICASONE PROPION/SALMETEROL 14 PUFF DISK.W.DEV IH SCH (08:37)
[2018-11-08] MEDS: PRAMIPEXOLE DI-HCL 0.5 MG TABLET PO SCH (08:38)
[2018-11-08] MEDS: METOPROLOL TARTRATE 100 MG TABLET PO SCH (08:38)
[2018-11-08] MEDS: sitaGLIPtin PHOSPHATE 50 MG TABLET PO SCH (08:38)
[2018-11-08] MEDS: DULoxetine HCL 30 MG CAPSULE.SA PO SCH (08:39)
[2018-11-08] MEDS: buPROPion HCL 150 MG TAB.SR.24H PO SCH (08:39)
[2018-11-08] MEDS: ASPIRIN 81 MG TABLET.DR PO SCH (08:39)
[2018-11-08] MEDS: DIGOXIN 0.25 MG TABLET PO SCH (08:39)
[2018-11-08] MEDS: POTASSIUM CHLORIDE 20 MEQ TABLET.SA PO SCH (08:39)
[2018-11-08] MEDS ORDERED: FUROSEMIDE 40 MG TABLET PO SCH (13:00)
[2018-11-08 14:50] VITALS: BP 131/77
--- NOTE | 2018-11-08 15:00 | DS ---
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 insulin use: without group home use Diabetes mellitus complication status: without complication Qualified Code(s): E11.9 - Type 2 diabetes mellitus without complications (4) Obesity (BMI 35.0-39.9 without comorbidity) Problem: Chronic (5) Hypothyroidism Problem: Chronic Qualifiers: Hypothyroidism type: acquired Qualified Code(s): E03.9 - Hypothyroidism, unspecified (6) Atrial fibrillation with rapid ventricular response Problem: Acute (7) Chest pain Problem: Resolved Qualifiers: Chest pain type: precordial pain Qualified Code(s): R07.2 - Precordial pain (8) UTI (urinary tract infection) Problem: Acute Qualifiers: Urinary tract infection type: acute cystitis Hematuria presence: without hematuria Qualified Code(s): N30.00 - Acute cystitis without hematuria Description of Stay: Gertrude Brown is a 63 yo wh fe. who was admitted with severe edema and SOB. She had a pos HJR and bibasilar crackles. Her BNP was only in the 300s. Her renal function was normal. She had failed OP Loop diuretic therapy. Her legs began hurting so badly that she came to the ER a 04:30AM. She was given IV Furosemide and she began diuresing aggressively and was admitted to an observation status. She lost over 4 kg. Unfortunately she developed chest pain and went into A-Fib with RVR and could not be discharged to home as originally planned. She was then admitted to an acute in pt. stay. She was given NTG .4mg SL for the CP. She received 5mg of Metoprolol IV and was started on Metoprolol 100mg po bid and yet her heart rate stayed in the 1teens to the 120s. I started her on Digoxin .25mg po giving 2 doses 6hrs apart yesterday and a dose this morning. Her HR is 102- 108 at this time. She has not had anymore CP. She would like to go home and I believe she is stable enough to be discharged this afternoon. She will have home health and will follow up with me in the office. Face to Face for Home Health: Gertrude Brown is confined to the home due to impaired mobility. She has leg weakness and Diabetic neuropathy that makes her mobility difficult and a taxing effort to get her out of her home. The need for penitentiary is medication education and management, Monitoring of her VS especially of her Afib with RVR and monitoring of her wt. gain. The need for PT is limb strengthening and improvement in her independent mobility issues. Improve her safety awareness and improve transferring, standing, bathing etc. The need for OT is improved mobility and use of her hands and arms to improve dressing, hygiene, and eating. She will also need speech to evaluate for swallowing difficulties and choking when drinking liquids. She will need an aid to help her with bathing, hair care, dressing. She will benefit greatly with these services. Procedures Performed: none Results and Findings: Lab Pending Results 11/06/18 02:55: WBC 12.2 H, RBC 4.30, Hgb 10.2 L, Hct 35.5 L, MCV 82.6, MCH 23.7 L, MCHC 28.7 L, RDW 17.5 H, Plt Count 351, MPV 9.1, Immature Gran % (Auto) 0.40, Immature Gran # (Auto) 0.05 H, Neutrophils % 72.4, Lymphocytes % 16.0 L, Monocytes % 8.3, Eosinophils % 2.5, Basophils % 0.4, Nucleated RBC % 0.0, Neutrophils # 8.8 H, Lymphocytes # 1.95, Monocytes # 1.0, Eosinophils # 0.3, Absolute Basophils 0.1 11/06/18 02:55: Sodium 146 H, Plasma Sodium 146 H, Potassium 3.9, Chloride 109 H, Carbon Dioxide 23.9 L, Anion Gap 17.0 H, BUN 21, Creatinine 0.94, Est GFR (Non-Af Amer) 64, BUN/Creatinine Ratio 22.3 H, Random Glucose 129 H, Calcium 9.4, Calcium Adj for Albumin 9.8, Total Bilirubin 0.2, AST 11, ALT 13 L, Alkaline Phosphatase 109, Troponin I Less than 0.017, B-Natriuretic Peptide 327 H, Total Protein 6.8, Albumin 3.1 L 11/06/18 03:30: Urine Color Yellow, Urine Appearance Cloudy, Urine pH 6.0, Ur Specific Magee 1.025, Urine Protein Negative, Urine Glucose (UA) Negative, Urine Ketones Negative, Urine Blood 5 H, Urine Nitrate Positive H, Urine Bilirubin Negative, Urine Urobilinogen Normal, Ur Leukocyte Esterase 75 H, Urine RBC Trace, Urine WBC 5-10 H, Ur Epithelial Cells 0-5, Urine Bacteria 4+ H, Urine Culture Comments Culture to follow 11/06/18 13:28: Sodium 144 H, Plasma Sodium 145 H, Potassium 4.2, Chloride 103, Carbon Dioxide 28.1, Anion Gap 17.1 H, BUN 22, Creatinine 0.88, Est GFR (Non-Af Amer) 69, BUN/Creatinine Ratio 25.0 H, Random Glucose 166 H, Calcium 9.7 11/07/18 06:00: WBC 13.3 H, RBC 4.81, Hgb 11.4 L, Hct 38.9, MCV 80.9, MCH 23.7 L, MCHC 29.3 L, RDW 17.2 H, Plt Count 345, MPV 8.9, Immature Gran % (Auto) 0.30, Immature Gran # (Auto) 0.04 H, Neutrophils % 79.0 H, Lymphocytes % 12.2 L, Monocytes % 7.1, Eosinophils % 1.1, Basophils % 0.3, Nucleated RBC % 0.0, Neutrophils # 10.5 H, Lymphocytes # 1.62, Monocytes # 0.9, Eosinophils # 0.2, Absolute Basophils 0.0 11/07/18 06:00: Sodium 142, Plasma Sodium 143 H, Potassium 3.8, Chloride 103, Carbon Dioxide 24.8, Anion Gap 18.0 H, BUN 24 H, Creatinine 1.01, Est GFR (Non- Af Amer) 58 L, BUN/Creatinine Ratio 23.8 H, Random Glucose 187 H, Calcium 9.3, Troponin I Less than 0.017, TSH 0.111 L 11/07/18 11:35: Troponin I Less than 0.017 11/08/18 06:10: WBC 10.4 D, RBC 4.91, Hgb 11.7 L, Hct 40.2, MCV 81.9, MCH 23.8 L, MCHC 29.1 L, RDW 17.7 H, Plt Count 393, MPV 9.4, Immature Gran % (Auto) 0.30, Immature Gran # (Auto) 0.03, Neutrophils % 69.4, Lymphocytes % 20.0, Monocytes % 7.7, Eosinophils % 2.0, Basophils % 0.6, Nucleated RBC % 0.0, Neutrophils # 7.2 H, Lymphocytes # 2.08, Monocytes # 0.8, Eosinophils # 0.2, Absolute Basophils 0.1 11/08/18 06:10: Sodium 141, Plasma Sodium 142, Potassium 4.2, Chloride 103, Carbon Dioxide 26.0, Anion Gap 16.2 H, BUN 21, Creatinine 1.01, Est GFR (Non-Af Amer) 58 L, BUN/Creatinine Ratio 20.8, Random Glucose 144 H, Calcium 9.1, Calcium Adj for Albumin 9.6, Total Bilirubin 0.3, AST 16, ALT 13 L, Alkaline Phosphatase 128, Total Protein 7.1, Albumin 3.0 L Discharge Location: Home Disposition: Home Health Service Home Health Agency: [facility] Condition: Stable Face to Face Encounter completed per [facility] Guidelines: Yes Discharge Activity: Activity as tolerated Discharge Diet: Consistent carbs Referrals: Hugh Zhu DO [Primary Care Provider] - Additional Patient Instructions (free text): -Please make TCM appointment unless alf discharge. Thank you! Kristi @ [phone]. [facility] at discharge, please call and fax discharge orders to them. Prescriptions (Any new or edited meds): Cefuroxime Axetil [Cefuroxime] 500 mg PO BID #14 tablet Complete Home Medications List: Complete Home Medication List: Topiramate [Topamax] 100 mg PO DAILY 05/24/16 Aspirin [Aspir-Low] 81 mg PO DAILY #30 tablet. 12/19/16 cholecalciferol (vitamin D3) 1,000 unit capsule 1,000 unit PO DAILY #30 cap 03/26/18 Fluticasone Propion/Salmeterol [Advair 250-50 Diskus] 1 puff INHALATION BID 06/01/18 Acetaminophen [Tylenol] 1,000 mg PO Q6H PRN tab 06/03/18 metformin 1,000 mg tablet 1,000 mg PO BID #180 tab 07/28/18 benazepril 40 mg tablet 40 mg PO DAILY #90 tab 09/29/18 bupropion HCl XL 150 mg 24 hr tablet, extended release 150 mg PO DAILY #90 tab 09/29/18 ferrous sulfate 325 mg (65 mg iron) tablet 325 mg PO DAILY #90 tab 09/29/18 levothyroxine 200 mcg tablet 200 mcg PO DAILY #90 tab 09/29/18 levothyroxine 50 mcg tablet 50 mcg PO DAILY #90 tab 09/29/18 omeprazole 20 mg capsule,delayed release 20 mg PO BID #180 cap 09/29/18 pramipexole 1 mg tablet 2 mg PO BID #180 tab 09/29/18 sitagliptin 100 mg tablet 100 mg PO DAILY #30 tab 09/29/18 acetaminophen 300 mg-codeine 30 mg tablet 1 tab PO Q6H PRN #60 tab 10/16/18 duloxetine 60 mg capsule,delayed release 60 mg PO BID #60 cap 11/05/18 metolazone 5 mg tablet 5 mg PO DAILY #30 tab 11/05/18 Furosemide [Lasix] 40 mg PO DAILY 11/06/18 Simvastatin 40 mg PO HS 11/06/18 Cefuroxime Axetil [Cefuroxime] 500 mg PO BID #14 tablet 11/08/18 Digoxin [Lanoxin] 0.125 mg PO DAILY #30 tab 11/08/18 Furosemide [Lasix] 40 mg PO DAILY tab 11/08/18 Metoprolol Tartrate [Lopressor] 100 mg PO BID #60 tab 11/08/18 Nitroglycerin [Nitrostat] 0.4 mg SUBLINGUAL Q5MIN PRN #25 btl 11/08/18 Nystatin [Mycostatin Powder] 1 appl TOPICAL BID #1 btl 11/08/18 Potassium Chloride [K-Dur] 20 meq PO DAILY #30 tablet.sa 11/08/18
== END 2018-11-08 15:10 | disposition home health service (06) | DRG 292 ==
LOC: ER 02:14 → MS 02:14 → OBSVTOIN 04:27 → MS 05:22
PROVIDERS: ADMIT Family Medicine; ATTEND Family Medicine
DX: Z68.35 Body mass index [BMI] 35.0-35.9, adult; I50.33 Acute on chronic diastolic (congestive) heart failure; B96.20 Unspecified Escherichia coli [E. coli] as the cause of diseases classified elsewhere; E66.9 Obesity, unspecified; E03.9 Hypothyroidism, unspecified; Z79.84 Long term (current) use of oral hypoglycemic drugs; R60.0 Localized edema; N39.0 Urinary tract infection, site not specified; R07.9 Chest pain, unspecified; I48.2 Chronic atrial fibrillation; M25.552 Pain in left hip; E11.42 Type 2 diabetes mellitus with diabetic polyneuropathy
CPT/HCPCS: 36415; 71020; 71046; 73502; 80048; 80053; 81001; 83519; 83880; 84443; 84484; 85025; 87077; 87081; 87086; 87186; 93005; 93971; 94660; 96365; 96366; 96375; 96376; 99285; G0378

== ENCOUNTER 2019-04-01 19:25 | Observation (INO) ==
[2019-04-01 20:03] LABS: Hemoglobin 11.9 gm/dL (12.5-16.0); Mean Cell Volume 82.8 fl (78-100); Mean Corpuscular Hemoglobin 24.6 pg (27-31); Mean Corpuscular Hgb Conc 29.8 g/dl (32-36); Mean Platelet Volume 8.6 fl (8-12.5); Neutrophil # 6.7 K/mm3 (1.3-6.0); Neutrophil % 66.6 % (42-75.0); Platelet Count 390 K/mm3 (150-450); Red Blood Count 4.83 M/mm3 (4.2-5.4); Red Cell Distribution Width 18.9 % (11.5-14.0); White Blood Count 10.1 K/mm3 (4.0-10.5)
[2019-04-01 20:23] LABS: ALT 17 U/L (19-67); AST 22 U/L (0-48); Albumin * 2.9 gm/dl (3.4-5.0); Alkaline Phosphatase * 122 U/L (50-170); Anion Gap 13.1 mmol/L (6.8-13.8); BUN/Creatinine Ratio 15.4 (9.0-21.6); Bilirubin, Total 0.1 mg/dL (0.0-1.1); Blood Urea Nitrogen 18 mg/dL (3-23); Ca. Corrected For Albumin 9.4 mg/dL (8.4-10.2); Calcium * 8.8 mg/dL (7.9-10.9); Carbon Dioxide 26.6 mmol/L (24-32.6); Chloride 108 mmol/L (97-106); Estimated Creat Clear 42.6; Glucose * 196 mg/dL (70-110); Potassium 3.7 mmol/L (3.4-4.6); Sodium 144 mmol/L (132-142); Total Protein 6.6 gm/dL (6.2-8.2); Troponin I Less than 0.017 ng/mL (0.00-0.10)
[2019-04-01 20:52] LABS: Urine Bilirubin Negative (NEGATIVE); Urine Ketone Negative (NEGATIVE); Urine Nitrite Negative (NEGATIVE); Urine Protein Negative (NEGATIVE); Urine Urobilinogen Normal (NORMAL)
--- NOTE | 2019-04-01 20:52 | ERNOTE ---
Neuro HPI ER Record Date of Service: 04/01/19 Presenting Symptoms: confusion, other Time Seen by Provider: 04/01/19 19:55 Source: family Immunizations: IMMUNIZATION HX Immunizations Up to Date Yes History of Influenza Vaccine Yes Hx Pneumococcal Vaccination No Allergies/Adverse Reactions: Allergies Allergy/AdvReac Type Severity Reaction Status Date / Time ciprofloxacin HCl Allergy Mild hot and Verified 04/01/19 00:10 [From Cipro] itching Home Medications: HOME MEDICATIONS Aspirin [Aspir-Low] 81 mg PO DAILY #30 tablet. 12/19/16 [Last Taken 11/05/18] cholecalciferol (vitamin D3) 1,000 unit capsule 1,000 unit PO DAILY #30 cap 03/26/18 [Last Taken 11/05/18] Fluticasone Propion/Salmeterol [Advair 250-50 Diskus] 1 puff INHALATION BID 06/01/18 [Last Taken 11/05/18] Acetaminophen [Tylenol] 1,000 mg PO Q6H PRN tab 06/03/18 [Last Taken Unknown] metformin 1,000 mg tablet 1,000 mg PO BID #180 tab 07/28/18 [Last Taken 11/05/18] acetaminophen 300 mg-codeine 30 mg tablet 1 tab PO Q6H PRN #60 tab 10/16/18 [Last Taken Unknown] duloxetine 60 mg capsule,delayed release 60 mg PO BID #60 cap 11/05/18 [Last Taken 11/05/18] metolazone 5 mg tablet 5 mg PO DAILY #30 tab 11/05/18 [Last Taken 11/05/18] Furosemide [Lasix] 40 mg PO DAILY 11/06/18 [Last Taken 11/05/18] Digoxin [Lanoxin] 0.125 mg PO DAILY #30 tab 11/08/18 [Last Taken Unknown] Metoprolol Tartrate [Lopressor] 100 mg PO BID #60 tab 11/08/18 [Last Taken Unknown] Nitroglycerin [Nitrostat] 0.4 mg SUBLINGUAL Q5MIN PRN #25 btl 11/08/18 [Last Taken Unknown] Potassium Chloride [K-Dur] 20 meq PO DAILY #30 tablet.sa 11/08/18 [Last Taken Unknown] levothyroxine 200 mcg tablet See Rx Instructions .ROUTE .COMPLEX #90 tablet 12/23/18 [Last Taken Unknown] nystatin 100,000 unit/gram topical powder 1 applic TP BID #60 g 12/30/18 [Last Taken Unknown] benazepril 40 mg tablet 40 mg PO DAILY #90 tab 01/05/19 [Last Taken Unknown] iron 150 mg-vit C 60 mg-folate 1 [id number] tablet 1 tab PO DAILY #30 tab 01/05/19 [Last Taken Unknown] betamethasone dipropionate 0.05 % topical ointment 1 applic TP BID PRN #45 g 01/06/19 [Last Taken Unknown] simvastatin 40 mg tablet 40 mg PO HS #90 tab 02/08/19 [Last Taken 03/31/19 22:00] cholestyramine-aspartame 4 gram oral powder 4 g PO BID #239.4 g 03/16/19 [Last Taken Unknown] Pramipexole Di-HCl [Pramipexole Dihydrochloride] 2 mg PO BID 04/01/19 [Last Taken Unknown] buPROPion HCL [Wellbutrin Xl] 150 mg PO DAILY 04/01/19 [Last Taken Unknown] sitaGLIPtin PHOSPHATE [Januvia] 100 mg PO DAILY 04/01/19 [Last Taken 03/31/19 09:00] Omeprazole [Prilosec] 20 mg PO BID 04/02/19 [Last Taken 03/31/19 22:00] Topiramate [Topamax] 100 mg PO BID 04/02/19 [Last Taken 03/31/19 09:00] - History of Present Illness Narrative: This is a 64-year-old female who is brought back to the emergency department. Family is the only person who can give any information. The patient was apparently seen yesterday for altered mental status. She had comprehensive labs, EKG, x-ray, CAT scan of the head. She was discharged home. The patient's daughter says that she was acting completely the same when she left as when she came in. Nothing seemed to be any better. The daughter says that she has not had any seizures, that she seems to be falling asleep very quickly and easily. The patient has not been complaining of anything to her. There have been no other issues. No new medicines. The daughter is perplexed as to why this is happening and has no other information to offer. The patient is stuporous to the point where she cannot stay awake enough to answer any questions. She was able to identify her daughter and answer the name. She immediately fell back to sleep. Review of Systems - Narrative Narrative: Unable to obtain review of systems secondary to patient's altered mental state Medical History (Updated 04/01/19 @ 03:03 by Michael Shay DO) Unstable right ankle (Chronic) Unstable left ankle (Chronic) Pain in both feet (Chronic) Urinary incontinence (Chronic) Fecal incontinence (Chronic) Irritable Bowel Syndrome (Chronic) Iron (Fe) deficiency anemia (Chronic) Right ankle pain (Acute) Shoulder pain, right (Chronic) Congestive heart failure with left ventricular diastolic dysfunction, NYHA class 3 (Chronic) Edema noted on examination (Resolved) Her she has swelling up into the waist area that is palpable. The lower legs are taut and shiny and tender. No cellulitis is present. She is having orthopnea. Her O2 sats however are 97 to 100% on room air while ambulating so she does not qualify for oxygen today. She gets short of breath and just talking and is awakened when she is trying to sleep. She is been wearing her CPAP even when awake trying to get more air at home. I suspect she has significant mesentery edema and probably not really absorbing her p.o. meds very well. Uncontrolled diabetes mellitus with diabetic polyneuropathy (Chronic) Type II diabetes mellitus (Chronic) Fatigue (Chronic) Hypothyroidism (Chronic) Has daytime drowsiness (Chronic) Onychomycosis Onset Date: Unknown Arthritis Onset Date: Unknown Diabetes mellitus, type II Onset Date: Unknown Hyperlipidemia Onset Date: 08/26/16 Hypertension Onset Date: Unknown Hypothyroidism Onset Date: Unknown IBS (irritable bowel syndrome) Onset Date: Unknown Joint pain Onset Date: Unknown Macular degeneration Onset Date: Unknown Thyroid disease Onset Date: Unknown Weakness Onset Date: Unknown Abnormal granulation tissue Onset Date: 08/15/11 Carpal tunnel syndrome Onset Date: Unknown Headache Onset Date: Unknown Rotator cuff tear Onset Date: 2014 left Surgical History: Surgical History (Updated 11/06/18 @ 13:46 by Hugh Zhu DO) excision bone spur bilateral feet 08/03/2018 Dr. Sage H/O arthroscopic knee surgery Onset Date: Unknown Left Dr. Avila 01/04/2004 Right 01/03/2003 H/O dilation and curettage Onset Date: 03/2008 Dr. Campbell H/O neck surgery Onset Date: 2012 cervical disc decompression w/fusion of cervical spinal cord C5-6 H/O shoulder replacement Onset Date: 11/06/15 Dr. Mary History of back surgery Onset Date: Unknown History of carpal tunnel release Onset Date: 2008 Dr. Mary, bilaeral History of cataract removal with insertion of prosthetic lens Onset Date: Unknown 07/12/13 left 08/23/13 right History of colonoscopy Onset Date: 11/18/162007 Dr. Peacock bx negative 11/18/16 Tania, diverticulosis, lucero 10 yrs History of esophagogastroduodenoscopy (EGD) Onset Date: 08/08/99 Charli, with biopsy, Gastritis History of hysterectomy Onset Date: Unknown History of laparoscopic appendectomy Onset Date: 05/27/16 Dr. Marin History of local excision of skin lesion Onset Date: 09/14/08 Right upper back, neurofibroma right upper chest, epidermal inclusion cyst History of microdiscectomy Onset Date: 05/29/18 Dr. Hugh Fontenot, [facility]. L4-5. History of total vaginal hysterectomy (TVH) Onset Date: 05/28/11 Dr. Campbell History of tubal ligation Onset Date: 1979 Hx of cholecystectomy Onset Date: 11/18/99 Dr. Augustin Hx of umbilical hernia repair Onset Date: 11/01/99 Dr. Augustin McCalls Culdoplasty Onset Date: 05/28/11 Previous back surgery Onset Date: 06/15/17 Dr. Fontenot, laminectomy on R of L4, w/partial facetectomy laminectomy on right of L5 w/ partial medial facetectomy Rectocele, female Onset Date: Unknown repair S/P YAG capsulotomy, bilateral Onset Date: 02/08/14 Total knee replacement status Onset Date: Unknown Left 02/2008, Right 12/2006 colporrhaphy Onset Date: 05/28/11 Family History: Family History (Updated 02/20/18 @ 15:05 by Poonam Mehta LPN) Brother Pancreatitis, Onset Age: 46 Daughter Alive and well Father CVA (cerebral vascular accident), Onset Age: 70 Hypertension Arthritis Grandmother No problems noted. Grandfather No problems noted. Mother Arthritis Hypertension, Onset Age: 85 Sister Heart disease, Onset Age: 70 Sister colon issues Son Alive and well Son No problems noted. Social History: (Last Reviewed 04/02/19 @ 02:40 by Maye Stockton RN) Social History: Marital status: / lives independently: Yes number of children: 6 current occupational status: retired Highest education level completed: 9th grade Service: No Tobacco: Smoking Status: Former smoker Tobacco: How many years used: 48 how long ago did patient quit smokin years quit status: has quit before Alcohol: alcohol intake: never Substance Use: substance use type: does not use Dietary Habits: caffeine: Yes caffeine comment: some days, soda Type: carbonated beverages Exercise: frequency: does not exercise Physical Exam - Physical Exam General Appearance: Present: other - Patient is stuporous requiring constant stimulation to stay awake. She has pursed lip breathing. She is not in any apparent distress Head Exam: Present: normal inspection, no evidence of injury Eye Exam: Normal inspection: bilateral, PERRL: bilateral Ears, Nose, Throat: Present: normal ENT inspection, normal pharynx Neck: Present: normal inspection, nontender Respiratory: Present: no respiratory distress, chest nontender, lungs clear, other - Patient is slightly diminished throughout Cardiovascular/Chest: Present: other - Tachycardic but I do not hear any murmurs rubs or gallops Gastrointestinal/Abdominal: Present: normal bowel sounds, nontender, nondistended, soft Back Exam: Present: normal inspection, normal range of motion, no CVA tenderness, no vertebral tenderness Extremity Exam: Present: normal inspection, non-tender, normal range of motion, no edema Neurological Exam: Present: other - The patient is stuporous. She does answer some questions appropriately. Falls asleep during others. Noticed to move all extremities. Speech is somewhat slurred, but this seems more related to her falling asleep. The moment that she is awake she is comprehensible but over the next 5 to 10 seconds she becomes increasingly incomprehensible as she falls back to sleep. She has occasional tremor/myoclonic jerking. Skin Exam: Present: normal color, warm/dry Lymphatic Exam: Present: no adenopathy Progress - Results and Orders Patient's Lab Results:: I have reviewed the patient's lab results. - Vital Signs Patient's Vital Signs:: I have reviewed the patient's vital signs. Vital Signs: Vital Signs 04/01/19 19:28 Temperature 37.5 C Pulse Rate 117 H Respiratory Rate 19 Blood Pressure 160/81 H O2 Sat by Pulse Oximetry 95 - EKG EKG #1 EKG read: Interp. by me EKG Comments: EKG demonstrates sinus tach at a ventricular rate of 121, normal axis, normal intervals, no ST elevation, T waves have normal morphology and direction - CT/Ultrasound CT/Ultrasound Narrative: CT of the abdomen pelvis fails to demonstrate any acute abnormalities. Small hernia. - Progress/Reassessment Chief Complaint: Altered Mental Status Plan - Plan Plan: The patient started to act much more normally about 2 hours after arrival. She was still not completely back to normal per family. After discussion with the family we have elected to observe the patient. Admitted to Dr. Marilee Pulliam Clinical Impression: Stupor - Departure Disposition: Still a patient Condition: Stable
[2019-04-01 21:00] LABS: Urine Appearance Clear (CLEAR); Urine Bacteria TRACE; Urine Blood 5 /ul (NEGATIVE); Urine Color Yellow; Urine RBC None Seen /hpf (0-5); Urine WBC None Seen /hpf (0-5)
[2019-04-01] MEDS ORDERED: DIATRIZOATE MEGLUMINE, SODIUM 30 ML BTL PO ONE (23:04)
--- NOTE | 2019-04-02 09:58 | HPDIS ---
Chief Complaint - Chief Complaint Date of Service: 04/02/19 Time of Service: 09:01 Chief Complaint: Unable to hold her head up for the past few days History of Present Illness: 64-year-old female with COPD, diabetes mellitus type 2, congestive heart failure, hypertension, hyperlipidemia, hypothyroidism, sleep apnea on CPAP, arthritis presents from home with complaints of unable to hold her head up. Per the ER physician notes family states for the past few days she has been having increased sleepiness. She was brought to the emergency department if you days ago and lab work-up was unremarkable so she was sent home. She returned to the emergency room the next day because her mentation and not improved. The ER physician's note states the patient was stuporous and not awake enough to answer any questions. Blood work did not show any significant abnormalities. CT of the abdomen and pelvis showed no acute intra-abdominal or pelvic processes. She was admitted for observation. CT head and chest x-ray performed the day prior to admission were negative for any acute abnormalities. Medical History (Updated 04/02/19 @ 09:58 by Ashley Kelly MD) Unstable right ankle (Chronic) Unstable left ankle (Chronic) Pain in both feet (Chronic) Urinary incontinence (Chronic) Fecal incontinence (Chronic) Irritable Bowel Syndrome (Chronic) Iron (Fe) deficiency anemia (Chronic) Right ankle pain (Acute) Shoulder pain, right (Chronic) Congestive heart failure with left ventricular diastolic dysfunction, NYHA class 3 (Chronic) Edema noted on examination (Resolved) Her she has swelling up into the waist area that is palpable. The lower legs are taut and shiny and tender. No cellulitis is present. She is having orthopnea. Her O2 sats however are 97 to 100% on room air while ambulating so she does not qualify for oxygen today. She gets short of breath and just talking and is awakened when she is trying to sleep. She is been wearing her CPAP even when awake trying to get more air at home. I suspect she has significant mesentery edema and probably not really absorbing her p.o. meds very well. Uncontrolled diabetes mellitus with diabetic polyneuropathy (Chronic) Type II diabetes mellitus (Chronic) Fatigue (Chronic) Hypothyroidism (Chronic) Has daytime drowsiness (Chronic) Onychomycosis Onset Date: Unknown Arthritis Onset Date: Unknown Diabetes mellitus, type II Onset Date: Unknown Hyperlipidemia Onset Date: 08/26/16 Hypertension Onset Date: Unknown Hypothyroidism Onset Date: Unknown IBS (irritable bowel syndrome) Onset Date: Unknown Joint pain Onset Date: Unknown Macular degeneration Onset Date: Unknown Thyroid disease Onset Date: Unknown Weakness Onset Date: Unknown Abnormal granulation tissue Onset Date: 08/15/11 Carpal tunnel syndrome Onset Date: Unknown Headache Onset Date: Unknown Rotator cuff tear Onset Date: 2014 left Surgical History: Surgical History (Updated 11/06/18 @ 13:46 by Hugh Zhu, ) excision bone spur bilateral feet 08/03/2018 Dr. Sage H/O arthroscopic knee surgery Onset Date: Unknown Left Dr. Avila 01/04/2004 Right 01/03/2003 H/O dilation and curettage Onset Date: 03/2008 Dr. Campbell H/O neck surgery Onset Date: 2012 cervical disc decompression w/fusion of cervical spinal cord C5-6 H/O shoulder replacement Onset Date: 11/06/15 Dr. Mary History of back surgery Onset Date: Unknown History of carpal tunnel release Onset Date: 2008 Dr. Mary, bilaeral History of cataract removal with insertion of prosthetic lens Onset Date: Unknown 07/12/13 left 08/23/13 right History of colonoscopy Onset Date: 11/18/162007 Dr. Peacock bx negative 11/18/16 Tania, diverticulosis, lucero 10 yrs History of esophagogastroduodenoscopy (EGD) Onset Date: 08/08/99 Charli, with biopsy, Gastritis History of hysterectomy Onset Date: Unknown History of laparoscopic appendectomy Onset Date: 05/27/16 Dr. Marin History of local excision of skin lesion Onset Date: 09/14/08 Right upper back, neurofibroma right upper chest, epidermal inclusion cyst History of microdiscectomy Onset Date: 05/29/18 Dr. Hugh Fontenot, [facility]. L4-5. History of total vaginal hysterectomy (TVH) Onset Date: 05/28/11 Dr. Campbell History of tubal ligation Onset Date: 1979 Hx of cholecystectomy Onset Date: 11/18/99 Dr. Augustin Hx of umbilical hernia repair Onset Date: 11/01/99 Dr. Augustin McCradha Culdoplasty Onset Date: 05/28/11 Previous back surgery Onset Date: 06/15/17 Dr. Fontenot, laminectomy on R of L4, w/partial facetectomy laminectomy on right of L5 w/ partial medial facetectomy Rectocele, female Onset Date: Unknown repair S/P YAG capsulotomy, bilateral Onset Date: 02/08/14 Total knee replacement status Onset Date: Unknown Left 02/2008, Right 12/2006 colporrhaphy Onset Date: 05/28/11 Family History: Family History (Updated 02/20/18 @ 15:05 by Poonam Mehta LPN) Brother Pancreatitis, Onset Age: 46 Daughter Alive and well Father CVA (cerebral vascular accident), Onset Age: 70 Hypertension Arthritis Grandmother No problems noted. Grandfather No problems noted. Mother Arthritis Hypertension, Onset Age: 85 Sister Heart disease, Onset Age: 70 Sister colon issues Son Alive and well Son No problems noted. Social History: (Last Reviewed 04/02/19 @ 02:40 by Maye Stockton RN) Social History: Marital status: / lives independently: Yes number of children: 6 current occupational status: retired Highest education level completed: 9th grade Service: No Tobacco: Smoking Status: Former smoker Tobacco: How many years used: 48 how long ago did patient quit smokin years quit status: has quit before Alcohol: alcohol intake: never Substance Use: substance use type: does not use Dietary Habits: caffeine: Yes caffeine comment: some days, soda Type: carbonated beverages Exercise: frequency: does not exercise Review Of Systems (GEN) - Review of Systems Generalized/Overall Review: Absent: Fever EENTM: Absent: Eye Pain, Ear Pain Respiratory: Present: Shortness of Breath Cardiac: Absent: Chest Pain Abdominal: Absent: Abdominal Pain Musculoskeletal: Present: Other - Neck is sore Misc: All systems neg except as marked Immunizations: IMMUNIZATION HX Immunizations Up to Date Yes History of Influenza Vaccine Yes Hx Pneumococcal Vaccination No Allergies/Adverse Reactions: Allergies Allergy/AdvReac Type Severity Reaction Status Date / Time ciprofloxacin HCl Allergy Mild hot and Verified 04/01/19 00:10 [From Cipro] itching Home Medications: HOME MEDICATIONS Aspirin [Aspir-Low] 81 mg PO DAILY #30 tablet. 12/19/16 [Last Taken 11/05/18] cholecalciferol (vitamin D3) 1,000 unit capsule 1,000 unit PO DAILY #30 cap 03/26/18 [Last Taken 11/05/18] Fluticasone Propion/Salmeterol [Advair 250-50 Diskus] 1 puff INHALATION BID 06/01/18 [Last Taken 11/05/18] Acetaminophen [Tylenol] 1,000 mg PO Q6H PRN tab 06/03/18 [Last Taken Unknown] metformin 1,000 mg tablet 1,000 mg PO BID #180 tab 07/28/18 [Last Taken 11/05/18] acetaminophen 300 mg-codeine 30 mg tablet 1 tab PO Q6H PRN #60 tab 10/16/18 [Last Taken Unknown] duloxetine 60 mg capsule,delayed release 60 mg PO BID #60 cap 11/05/18 [Last Taken 11/05/18] Furosemide [Lasix] 40 mg PO DAILY 11/06/18 [Last Taken 11/05/18] Digoxin [Lanoxin] 0.125 mg PO DAILY #30 tab 11/08/18 [Last Taken Unknown] Metoprolol Tartrate [Lopressor] 100 mg PO BID #60 tab 11/08/18 [Last Taken Unknown] Nitroglycerin [Nitrostat] 0.4 mg SUBLINGUAL Q5MIN PRN #25 btl 11/08/18 [Last Taken Unknown] Potassium Chloride [K-Dur] 20 meq PO DAILY #30 tablet.sa 11/08/18 [Last Taken Unknown] levothyroxine 200 mcg tablet See Rx Instructions .ROUTE .COMPLEX #90 tablet 12/23/18 [Last Taken Unknown] nystatin 100,000 unit/gram topical powder 1 applic TP BID #60 g 12/30/18 [Last Taken Unknown] benazepril 40 mg tablet 40 mg PO DAILY #90 tab 01/05/19 [Last Taken Unknown] iron 150 mg-vit C 60 mg-folate 1 [id number]-hclzisiz-etimlsk tablet 1 tab PO DAILY #30 tab 01/05/19 [Last Taken Unknown] betamethasone dipropionate 0.05 % topical ointment 1 applic TP BID PRN #45 g 01/06/19 [Last Taken Unknown] simvastatin 40 mg tablet 40 mg PO HS #90 tab 02/08/19 [Last Taken 03/31/19 22:00] cholestyramine-aspartame 4 gram oral powder 4 g PO BID #239.4 g 03/16/19 [Last Taken Unknown] Pramipexole Di-HCl [Pramipexole Dihydrochloride] 2 mg PO BID 04/01/19 [Last Taken Unknown] buPROPion HCL [Wellbutrin Xl] 150 mg PO DAILY 04/01/19 [Last Taken Unknown] sitaGLIPtin PHOSPHATE [Januvia] 100 mg PO DAILY 04/01/19 [Last Taken 03/31/19 09:00] Omeprazole [Prilosec] 20 mg PO BID 04/02/19 [Last Taken 03/31/19 22:00] Topiramate [Topamax] 100 mg PO DAILY 04/02/19 [Last Taken 03/31/19 09:00] Exam - Exam Vital Signs: Vital Signs - Last Taken Temp 36.9 C 04/02/19 06:35 Pulse 80 04/02/19 06:35 Resp 16 04/02/19 06:35 BP 157/80 H 04/02/19 06:35 Pulse Ox 100 04/02/19 06:35 Constitutional: Present: Alert, Oriented x3, Cooperative, Well developed, Well nourished, No distress ENT Exam: Present: hearing grossly normal Eye Exam: bilateral eye: normal inspection, PERRL, EOMI Neck: Present: non-tender, trachea midline. Absent: lymphadenopathy (R), lymphadenopathy (L) Back Exam: Present: normal inspection, no CVA tenderness, no vertebral tenderness Respiratory: Present: lungs clear, no respiratory distress, no accessory muscle use, No wheezing. Absent: crackles, rhonchi Cardiovascular/Chest: Present: normal peripheral pulses, no murmur, irregularly irregular Peripheral Pulses: dorsalis-pedis (R): 1+, dorsalis-pedis (L): 1+ Abdomen: Present: Normal bowel sounds, soft, nontender Extremity: Present: no pedal edema Skin Exam: Present: normal color, warm/dry Neurologic: Present: alert, normal mood/affect Appearance: Present: appropriate appearance Eye contact: Present: cooperative, good eye contact Thoughts: Present: normal mood /affect Diagnostic Studies: Abnormal Lab Results 04/01/19 04/01/19 04/01/19 Range/Units 19:47 20:00 20:00 Hgb 11.9 L (12.5-16.0) gm/dL MCH 24.6 L (27-31) pg MCHC 29.8 L (32-36) g/dl RDW 18.9 H (11.5-14.0) % Immature Gran % (Auto) 0.80 H (0.001-0.429) % Immature Gran # (Auto) 0.08 H (0.000-0.0310) K/mm3 Eosinophils % 3.4 H (0.0-3.0) % Neutrophils # 6.7 H (1.3-6.0) K/mm3 pO2 55.9 L (83.0-108.0) mmHg Total CO2 27.1 H (19.0-24.0) mmol/L ABG O2 Sat (Measured) 89.0 L (94.0-98.0) % Sodium 144 H (132-142) mmol/L Plasma Sodium 146 H (130-142) mmol/L Chloride 108 H (97-106) mmol/L Est GFR (Non-Af Amer) 49 L D (60-130) mL/min Random Glucose 196 H (70-110) mg/dL Lactic Acid, Venous (0.4-2.0) mmol/L ALT 17 L (19-67) U/L Albumin 2.9 L (3.4-5.0) gm/dl Urine Blood (NEGATIVE) /ul Digoxin (0.5-2.0) ng/mL 04/01/19 04/01/19 04/01/19 Range/Units 20:00 20:46 22:44 Hgb (12.5-16.0) gm/dL MCH (27-31) pg MCHC (32-36) g/dl RDW (11.5-14.0) % Immature Gran % (Auto) (0.001-0.429) % Immature Gran # (Auto) (0.000-0.0310) K/mm3 Eosinophils % (0.0-3.0) % Neutrophils # (1.3-6.0) K/mm3 pO2 (83.0-108.0) mmHg Total CO2 (19.0-24.0) mmol/L ABG O2 Sat (Measured) (94.0-98.0) % Sodium (132-142) mmol/L Plasma Sodium (130-142) mmol/L Chloride (97-106) mmol/L Est GFR (Non-Af Amer) (60-130) mL/min Random Glucose (70-110) mg/dL Lactic Acid, Venous 2.5 H* (0.4-2.0) mmol/L ALT (19-67) U/L Albumin (3.4-5.0) gm/dl Urine Blood 5 H (NEGATIVE) /ul Digoxin 0.2 L (0.5-2.0) ng/mL Laboratory Results WBC 10.1 K/mm3 (4.0-10.5) 04/01/19 20:00 RBC 4.83 M/mm3 (4.2-5.4) 04/01/19 20:00 Hgb 11.9 gm/dL (12.5-16.0) L 04/01/19 20:00 Hct 40.0 % (37.0-47.0) 04/01/19 20:00 MCV 82.8 fl (78-100) 04/01/19 20:00 MCH 24.6 pg (27-31) L 04/01/19 20:00 MCHC 29.8 g/dl (32-36) L 04/01/19 20:00 RDW 18.9 % (11.5-14.0) H 04/01/19 20:00 Plt Count 390 K/mm3 (150-450) 04/01/19 20:00 MPV 8.6 fl (8-12.5) 04/01/19 20:00 Immature Gran % (Auto) 0.80 % (0.001-0.429) H 04/01/19 20:00 Immature Gran # (Auto) 0.08 K/mm3 (0.000-0.0310) H 04/01/19 20:00 66.6 % (42-75.0) 04/01/19 20:00 20.3 % (20-51) 04/01/19 20:00 8.3 % (0.0-9) 04/01/19 20:00 3.4 % (0.0-3.0) H 04/01/19 20:00 0.6 % (0.0-1.0) 04/01/19 20:00 Nucleated RBC % 0.0 k/mm3 (0-1) 04/01/19 20:00 6.7 K/mm3 (1.3-6.0) H 04/01/19 20:00 2.04 k/mm3 (1.5-3.5) 04/01/19 20:00 0.8 k/mm3 (0.0-1.0) 04/01/19 20:00 0.3 k/mm3 (0.0-0.7) 04/01/19 20:00 Absolute Basophils 0.1 k/mm3 (0.0-0.1) 04/01/19 20:00 pCO2 42.9 mmHg (32.0-45.0) 04/01/19 19:47 pO2 55.9 mmHg (83.0-108.0) L 04/01/19 19:47 HCO3 25.7 mmol/L (21.0-28.0) 04/01/19 19:47 Total CO2 27.1 mmol/L (19.0-24.0) H 04/01/19 19:47 Base Excess 0.7 mmol/L (-2.0-3.0) 04/01/19 19:47 ABG pH 7.40 (7.35-7.45) 04/01/19 19:47 ABG O2 Sat (Measured) 89.0 % (94.0-98.0) L 04/01/19 19:47 Sodium 144 mmol/L (132-142) H 04/01/19 20:00 146 mmol/L (130-142) H 04/01/19 20:00 Potassium 3.7 mmol/L (3.4-4.6) 04/01/19 20:00 Chloride 108 mmol/L (97-106) H 04/01/19 20:00 Carbon Dioxide 26.6 mmol/L (24-32.6) 04/01/19 20:00 13.1 mmol/L (6.8-13.8) 04/01/19 20:00 BUN 18 mg/dL (3-23) 04/01/19 20:00 1.17 mg/dL (0.4-1.4) 04/01/19 20:00 Est GFR (Non-Af Amer) 49 mL/min (60-130) L D 04/01/19 20:00 15.4 (9.0-21.6) 04/01/19 20:00 196 mg/dL (70-110) H 04/01/19 20:00 1.7 mmol/L (0.4-2.0) 04/01/19 22:45 Calcium 8.8 mg/dL (7.9-10.9) 04/01/19 20:00 Calcium Adj for Albumin 9.4 mg/dL (8.4-10.2) 04/01/19 20:00 0.1 mg/dL (0.0-1.1) 04/01/19 20:00 AST 22 U/L (0-48) 04/01/19 20:00 ALT 17 U/L (19-67) L 04/01/19 20:00 122 U/L (50-170) 04/01/19 20:00 24.0 mcmol/L (11-35) 04/01/19 20:00 Less than 0.017 ng/mL (0.00-0.10) 04/01/19 20:00 6.6 gm/dL (6.2-8.2) 04/01/19 20:00 2.9 gm/dl (3.4-5.0) L 04/01/19 20:00 Yellow 04/01/19 20:46 Clear (CLEAR) 04/01/19 20:46 7.0 pH (5.0-7.0) 04/01/19 20:46 Ur Specific [place] 1.010 SP.GR. (1.005-1.010) 04/01/19 20:46 Negative mg/dL (NEGATIVE) 04/01/19 20:46 Negative mg/dL (NEGATIVE) 04/01/19 20:46 Negative mg/dL (NEGATIVE) 04/01/19 20:46 5 /ul (NEGATIVE) H 04/01/19 20:46 Negative (NEGATIVE) 04/01/19 20:46 Negative mg/dl (NEGATIVE) 04/01/19 20:46 Normal EU/dl (NORMAL) 04/01/19 20:46 Ur Leukocyte Esterase Negative /ul (NEGATIVE) 04/01/19 20:46 None seen /hpf (0-5) 04/01/19 20:46 None seen /hpf (0-5) 04/01/19 20:46 Ur Epithelial Cells 0-5 /hpf (0-5) 04/01/19 20:46 Trace (NONE) 04/01/19 20:46 No culture indicated 04/01/19 20:46 Digoxin 0.2 ng/mL (0.5-2.0) L 04/01/19 22:44 Assessment/Plan - Narrative Narrative: 64-year-old female with COPD, diabetes mellitus type 2, congestive heart failure, hypertension, hyperlipidemia, hypothyroidism, sleep apnea on CPAP, arthritis presents from home with complaints of unable to hold her head up. Per the ER physician notes family states for the past few days she has been having increased sleepiness. She was brought to the emergency department if you days ago and lab work-up was unremarkable so she was sent home. She returned to the emergency room the next day because her mentation and not improved. The ER physician's note states the patient was stuporous and not awake enough to answer any questions. Blood work did not show any significant abnormalities. CT of the abdomen and pelvis showed no acute intra-abdominal or pelvic processes. She was admitted for observation. CT head and chest x-ray performed the day prior to admission were negative for any acute abnormalities. Etiology of the altered mentation is unclear. She is alert and oriented x3 this morning. She is able to have a full conversation with me without dozing off. She answers my questions appropriately. She may benefit from a neurology evaluation as an outpatient. - Assessment/Plan (1) Transient alteration of awareness Problem: Acute (2) Congestive heart failure with left ventricular diastolic dysfunction, NYHA class 3 Problem: Chronic (3) Type II diabetes mellitus Problem: Chronic Qualifiers: Diabetes mellitus nursing home insulin use: without nursing home use Diabetes mellitus complication status: without complication Qualified Code(s): E11.9 - Type 2 diabetes mellitus without complications (4) Hypothyroidism Problem: Chronic Qualifiers: Hypothyroidism type: acquired Qualified Code(s): E03.9 - Hypothyroidism, unspecified (5) COPD (chronic obstructive pulmonary disease) Problem: Chronic Qualifiers: COPD type: chronic bronchitis Chronic bronchitis type: simple Qualified Code(s): J41.0 - Simple chronic bronchitis (6) GERD (gastroesophageal reflux disease) Problem: Chronic (7) HTN (hypertension) Problem: Chronic Qualifiers: Hypertension type: essential hypertension Qualified Code(s): I10 - Essential (primary) hypertension (8) FORTINO on CPAP Problem: Chronic (9) Osteoarthritis Problem: Chronic Qualifiers: Osteoarthritis location: multiple joints Osteoarthritis type: primary Qualified Code(s): M15.0 - Primary generalized (osteo)arthritis (10) Atrial fibrillation Problem: Chronic Qualifiers: Atrial fibrillation type: chronic Qualified Code(s): I48.2 - Chronic atrial fibrillation (1) Transient alteration of awareness Problem: Acute (2) Congestive heart failure with left ventricular diastolic dysfunction, NYHA class 3 Problem: Chronic (3) Type II diabetes mellitus Problem: Chronic Qualifiers: Diabetes mellitus long term acute care registered nurse insulin use: without nursing home use Diabetes mellitus complication status: without complication Qualified Code(s): E11.9 - Type 2 diabetes mellitus without complications (4) Hypothyroidism Problem: Chronic Qualifiers: Hypothyroidism type: acquired Qualified Code(s): E03.9 - Hypothyroidism, unspecified (5) COPD (chronic obstructive pulmonary disease) Problem: Chronic Qualifiers: COPD type: chronic bronchitis Chronic bronchitis type: simple Qualified Code(s): J41.0 - Simple chronic bronchitis (6) GERD (gastroesophageal reflux disease) Problem: Chronic (7) HTN (hypertension) Problem: Chronic Qualifiers: Hypertension type: essential hypertension Qualified Code(s): I10 - Essential (primary) hypertension (8) FORTINO on CPAP Problem: Chronic (9) Osteoarthritis Problem: Chronic Qualifiers: Osteoarthritis location: multiple joints Osteoarthritis type: primary Qualified Code(s): M15.0 - Primary generalized (osteo)arthritis (10) Atrial fibrillation Problem: Chronic Qualifiers: Atrial fibrillation type: chronic Qualified Code(s): I48.2 - Chronic atrial fibrillation Description of Stay: 64-year-old female with COPD, diabetes mellitus type 2, congestive heart failure, hypertension, hyperlipidemia, hypothyroidism, sleep apnea on CPAP, arthritis presents from home with complaints of unable to hold her head up. Per the ER physician notes family states for the past few days she has been having increased sleepiness. She was brought to the emergency department if you days ago and lab work-up was unremarkable so she was sent home. She returned to the emergency room the next day because her mentation and not improved. The ER physician's note states the patient was stuporous and not awake enough to answer any questions. Blood work did not show any significant abnormalities. CT of the abdomen and pelvis showed no acute intra-abdominal or pelvic processes. She was admitted for observation. Etiology of the altered mentation is unclear may be that she maybe secondary to narcolepsy. She is alert and oriented x3 this morning. She is able to have a full conversation with me without dozing off. She answers my questions appropriately. She may benefit from a neurology evaluation as an outpatient. Gertrude Restrepo is confined to the home due to her COPD and congestive heart failure. The need for senior care is for medication management and monitoring of vital signs. The need for home health care skilled services is directly related time spent [id number] with the person. Procedures Performed: none Results and Findings: Lab Pending Results 04/01/19 19:47: pCO2 42.9, pO2 55.9 L, HCO3 25.7, Total CO2 27.1 H, Base Excess 0.7, ABG pH 7.40, ABG O2 Sat (Measured) 89.0 L 04/01/19 20:00: WBC 10.1, RBC 4.83, Hgb 11.9 L, Hct 40.0, MCV 82.8, MCH 24.6 L, MCHC 29.8 L, RDW 18.9 H, Plt Count 390, MPV 8.6, Immature Gran % (Auto) 0.80 H, Immature Gran # (Auto) 0.08 H, Neutrophils % 66.6, Lymphocytes % 20.3, Monocytes % 8.3, Eosinophils % 3.4 H, Basophils % 0.6, Nucleated RBC % 0.0, Neutrophils # 6.7 H, Lymphocytes # 2.04, Monocytes # 0.8, Eosinophils # 0.3, Absolute Basophils 0.1 04/01/19 20:00: Sodium 144 H, Plasma Sodium 146 H, Potassium 3.7, Chloride 108 H, Carbon Dioxide 26.6, Anion Gap 13.1, BUN 18, Creatinine 1.17, Est GFR (Non-Af Amer) 49 L D, BUN/Creatinine Ratio 15.4, Random Glucose 196 H, Calcium 8.8, Calcium Adj for Albumin 9.4, Total Bilirubin 0.1, AST 22, ALT 17 L, Alkaline Phosphatase 122, Troponin I Less than 0.017, Total Protein 6.6, Albumin 2.9 L 04/01/19 20:00: Ammonia 24.0 04/01/19 20:00: Lactic Acid, Venous 2.5 H* 04/01/19 20:46: Urine Color Yellow, Urine Appearance Clear, Urine pH 7.0, Ur Specific [place] 1.010, Urine Protein Negative, Urine Glucose (UA) Negative, Urine Ketones Negative, Urine Blood 5 H, Urine Nitrate Negative, Urine Bilirubin Negative, Urine Urobilinogen Normal, Ur Leukocyte Esterase Negative, Urine RBC None seen, Urine WBC None seen, Ur Epithelial Cells 0-5, Urine Bacteria Trace, Urine Culture Comments No culture indicated 04/01/19 22:44: Digoxin 0.2 L 04/01/19 22:45: Lactic Acid, Venous 1.7 Discharge Location: Home Disposition: Home Health Service Home Health Agency: Other - Care at home [place] Condition: Stable Face to Face Encounter completed per [facility] Guidelines: Yes Discharge Activity: Activity as tolerated Discharge Diet: Low salt, Low fat/chol Referrals: Hugh Zhu DO [Primary Care Provider] - Additional Patient Instructions (free text): [facility] at Home [facility]. Please call report to [phone] and fax orders, H&P, DC Summary and facesheet to [phone]. -Please make TCM appointment unless skilled nursing discharge, or if following up with outside provider. Thank you! Kristi @ [phone] or Rea at [facility] [phone]. Complete Home Medications List: Complete Home Medication List: Aspirin [Aspir-Low] 81 mg PO DAILY #30 tablet. 12/19/16 cholecalciferol (vitamin D3) 1,000 unit capsule 1,000 unit PO DAILY #30 cap 03/26/18 Fluticasone Propion/Salmeterol [Advair 250-50 Diskus] 1 puff INHALATION BID 06/01/18 Acetaminophen [Tylenol] 1,000 mg PO Q6H PRN tab 06/03/18 metformin 1,000 mg tablet 1,000 mg PO BID #180 tab 07/28/18 acetaminophen 300 mg-codeine 30 mg tablet 1 tab PO Q6H PRN #60 tab 10/16/18 duloxetine 60 mg capsule,delayed release 60 mg PO BID #60 cap 11/05/18 Furosemide [Lasix] 40 mg PO DAILY 11/06/18 Digoxin [Lanoxin] 0.125 mg PO DAILY #30 tab 11/08/18 Metoprolol Tartrate [Lopressor] 100 mg PO BID #60 tab 11/08/18 Nitroglycerin [Nitrostat] 0.4 mg SUBLINGUAL Q5MIN PRN #25 btl 11/08/18 Potassium Chloride [K-Dur] 20 meq PO DAILY #30 tablet.sa 11/08/18 levothyroxine 200 mcg tablet See Rx Instructions .ROUTE .COMPLEX #90 tablet 12/23/18 nystatin 100,000 unit/gram topical powder 1 applic TP BID #60 g 12/30/18 benazepril 40 mg tablet 40 mg PO DAILY #90 tab 01/05/19 iron 150 mg-vit C 60 mg-folate 1 [id number] tablet 1 tab PO DAILY #30 tab 01/05/19 betamethasone dipropionate 0.05 % topical ointment 1 applic TP BID PRN #45 g 01/06/19 simvastatin 40 mg tablet 40 mg PO HS #90 tab 02/08/19 cholestyramine-aspartame 4 gram oral powder 4 g PO BID #239.4 g 03/16/19 Pramipexole Di-HCl [Pramipexole Dihydrochloride] 2 mg PO BID 04/01/19 buPROPion HCL [Wellbutrin Xl] 150 mg PO DAILY 04/01/19 sitaGLIPtin PHOSPHATE [Januvia] 100 mg PO DAILY 04/01/19 Omeprazole [Prilosec] 20 mg PO BID 04/02/19 Topiramate [Topamax] 100 mg PO DAILY 04/02/19
[2019-04-02] MEDS ORDERED: METOLAZONE 5 MG TABLET PO SCH (10:15)
[2019-04-02] MEDS ORDERED: buPROPion HCL 150 MG TAB.SR.24H PO SCH (10:15)
[2019-04-02] MEDS ORDERED: FUROSEMIDE 40 MG TABLET PO SCH (10:15)
[2019-04-02] MEDS ORDERED: LEVOTHYROXINE SODIUM 100 MCG TABLET PO SCH (10:15)
[2019-04-02] MEDS ORDERED: DULoxetine HCL 30 MG CAPSULE.SA PO SCH (10:15)
[2019-04-02] MEDS ORDERED: ENALAPRIL MALEATE 20 MG TABLET PO SCH (10:15)
[2019-04-02] MEDS ORDERED: METOPROLOL TARTRATE 100 MG TABLET PO SCH (10:15)
[2019-04-02] MEDS ORDERED: DIGOXIN 0.125 MG TABLET PO SCH (10:15)
[2019-04-02 18:29] VITALS: BP 147/71
[2019-04-02] MEDS ORDERED: PANTOPRAZOLE SODIUM 20 MG TABLET.DR PO SCH (21:00)
== END 2019-04-02 18:58 | disposition home health service (06) ==
LOC: ER 19:25 → MS 19:25 → INTOOBSV 23:24 → MS 23:24
PROVIDERS: ADMIT Internal Medicine; ATTEND Internal Medicine
CPT/HCPCS: 36415; 36600; 70450; 71010; 71045; 74178; 80053; 80162; 80307; 80320; 81001; 82140; 82803; 83519; 83605; 83880; 84484; 85025; 87081; 87086; 93005; 94660; 94762; 99283; 99285; G0378; G0481; Q9963; Q9967

== ENCOUNTER 2020-09-07 07:11 | Inpatient (IN) ==
[~2020-09-07 07:11] MED LIST changes: +RINGER'S SOLUTION,LACTATED 1,000 ML IV PRN; -RINGERS SOLUTION,LACTATED 1,000 ML IV PRN; +ROPIVACAINE/CLONIDIN/KETOROLAC 50 ML SYRINGE IJ PRN; +TRANEXAMIC ACID 1,000 MG in NORMAL SALINE 100 ML IV PRN; +ceFAZolin SODIUM 1 GM VIAL IV PRN
[2020-09-07] MEDS ORDERED: ceFAZolin SODIUM 1 GM VIAL ONE (07:21)
[2020-09-07] MEDS ORDERED: ISOPROPYL ALCOHOL 480 APPL BTL MC ONE (07:27)
[2020-09-07] MEDS ORDERED: BUPIVACAINE HCL 50 ML VIAL IJ ONE (08:00)
[2020-09-07] MEDS ORDERED: LIDOCAINE HCL 20 ML VIAL ONE (08:00)
[2020-09-07] MEDS ORDERED: fentaNYL CITRATE/PF 50 MCG/ML AMPUL ONE (08:01)
[2020-09-07] MEDS ORDERED: PROPOFOL VIAL IV ONE (08:01)
[2020-09-07] MEDS ORDERED: ONDANSETRON HCL/PF 2 MG/ML VIAL ONE (08:01)
[2020-09-07] MEDS ORDERED: HYDROmorphone HCL 2 MG/ML VIAL IV PRN (08:12)
[2020-09-07] MEDS ORDERED: diphenhydrAMINE HCL 50 MG/ML VIAL IV PRN ×2 (08:12→10:27)
[2020-09-07] MEDS ORDERED: NALOXONE HCL 0.4 MG/ML VIAL IV PRN (08:12)
[2020-09-07] MEDS ORDERED: PROCHLORPERAZINE EDISYLATE 5 MG/ML VIAL IV PRN (08:12)
[2020-09-07] MEDS ORDERED: ONDANSETRON HCL/PF 2 MG/ML VIAL IV PRN ×2 (08:12→10:27)
--- NOTE | 2020-09-07 08:12 | ANES ---
Anesthesia Pre Procedure Eval Vitals/Labs: Last Vital Signs Temp 36.5 C 09/07/20 07:12 Pulse 109 H 09/07/20 07:12 Resp 17 09/07/20 07:12 BP 149/79 09/07/20 07:12 Pulse Ox 99 09/07/20 07:12 HOME MEDICATIONS cholecalciferol (vitamin D3) 25 mcg (1,000 unit) capsule 1,000 unit PO DAILY #30 cap 03/26/18 [Last Taken 11/05/18] Nitroglycerin [Nitrostat] 0.4 mg SL Q5MIN PRN #25 btl 11/08/18 [Last Taken Unknown] iron 150 mg-vit C 60 mg-folate 1 [id number]-gdit-[id number]-lampcai tablet 1 tab PO DAILY #30 tab 11/15/19 [Last Taken Unknown] Gabapentin [Neurontin] 300 mg PO BID 01/18/20 [Last Taken Unknown] Apixaban [Eliquis] 5 mg PO BID 02/05/20 [Last Taken 09/05/20] sitaGLIPtin PHOSPHATE [Januvia] 100 mg PO DAILY 02/05/20 [Last Taken Unknown] ondansetron 8 mg disintegrating tablet 8 mg PO Q8H PRN #30 tab 02/08/20 [Last Taken Unknown] levothyroxine 200 mcg tablet 200 mcg PO DAILY #90 tab 04/13/20 [Last Taken Unknown] naloxone 4 mg/actuation nasal spray 4 mg JOSE Q2M PRN #2 ea 06/13/20 [Last Taken Unknown] bupropion HCl 150 mg 24 hr tablet, extended release 150 mg PO DAILY #90 tab 07/06/20 [Last Taken Unknown] duloxetine 60 mg capsule,delayed release 60 mg PO BID #60 cap 07/06/20 [Last Taken Unknown] metformin 1,000 mg tablet 1,000 mg PO BID #30 tab 07/06/20 [Last Taken Unknown] metolazone 5 mg tablet 5 mg PO DAILY #30 tab 07/06/20 [Last Taken Unknown] pramipexole 1 mg tablet 2 mg PO BID #120 tab 07/06/20 [Last Taken Unknown] simvastatin 40 mg tablet 40 mg PO HS #30 tab 07/06/20 [Last Taken Unknown] topiramate 100 mg tablet 100 mg PO DAILY #30 tab 07/06/20 [Last Taken Unknown] levothyroxine 25 mcg tablet See Rx Instructions .ROUTE .COMPLEX #42 tab 08/03/20 [Last Taken Unknown] omeprazole 20 mg capsule,delayed release 20 mg PO BID #60 cap 08/03/20 [Last Taken Unknown] nystatin 100,000 unit/gram topical powder 1 applic TP BID #60 g 08/07/20 [Last Taken Unknown] furosemide 40 mg tablet 40 mg PO Q OTHER DAY #15 tab 08/09/20 [Last Taken Unknown] metoprolol tartrate 25 mg tablet See Rx Instructions .ROUTE .COMPLEX #60 tab 08/09/20 [Last Taken Unknown] digoxin 125 mcg (0.125 mg) tablet See Rx Instructions .ROUTE .COMPLEX #30 tab 08/30/20 [Last Taken Unknown] potassium chloride 10 mEq tablet,extended release(part/cryst) See Rx Instructions .ROUTE .COMPLEX #120 tab 08/30/20 [Last Taken Unknown] Acetaminophen with Codeine [Acetaminophen-Cod #3 Tablet] 2 tab PO QID 09/07/20 [Last Taken Unknown] Cholestyramine/Aspartame [Cholestyramine Light Packet] 4 g PO PRN PRN 09/07/20 [Last Taken Unknown] Allergies/Adverse Reactions: Allergies Allergy/AdvReac Type Severity Reaction Status Date / Time ciprofloxacin HCl Allergy Mild hot and Verified 09/07/20 07:25 [From Cipro] itching cyclobenzaprine AdvReac Severe grogginess/ Verified 09/07/20 07:25 falls pregabalin [From Lyrica] AdvReac Intermediate cellulitis Verified 09/07/20 07:25 - Planned Procedure Planned Procedure: Right Arthroplasty Total Shoulder Reverse Medication List Reviewed:: Yes Allergies Verified: Yes Medical History (Last Reviewed 09/07/20 @ 08:04 by Heladio Fox CRNA) Painful total knee replacement, left (Chronic) Status post primary as well as revision knee Weakness (Acute) Cellulitis (Acute) recurrent. Diarrhea in adult patient (Chronic) much improved with addition of cholestyramine powder. Unstable right ankle (Chronic) Unstable left ankle (Chronic) Pain in both feet (Chronic) Urinary incontinence (Chronic) Fecal incontinence (Chronic) Irritable Bowel Syndrome (Chronic) Iron (Fe) deficiency anemia (Chronic) Right ankle pain (Acute) Shoulder pain, right (Chronic) Congestive heart failure with left ventricular diastolic dysfunction, NYHA class 3 (Chronic) Edema noted on examination (Chronic) Her she has swelling up into the waist area that is palpable. The lower legs are taut and shiny and tender. No cellulitis is present. She is having orthopnea. Her O2 sats however are 97 to 100% on room air while ambulating so she does not qualify for oxygen today. She gets short of breath and just talking and is awakened when she is trying to sleep. She is been wearing her CPAP even when awake trying to get more air at home. I suspect she has significant mesentery edema and probably not really absorbing her p.o. meds very well. Uncontrolled diabetes mellitus with diabetic polyneuropathy (Chronic) Type II diabetes mellitus (Chronic) Fatigue (Chronic) Hypothyroidism (Chronic) Has daytime drowsiness (Chronic) Atrial fibrillation with rapid ventricular response (Resolved) Onychomycosis Onset Date: Unknown Arthritis Onset Date: Unknown Diabetes mellitus, type II Onset Date: Unknown Hyperlipidemia Onset Date: 08/26/16 Hypertension Onset Date: Unknown Hypothyroidism Onset Date: Unknown IBS (irritable bowel syndrome) Onset Date: Unknown Joint pain Onset Date: Unknown Macular degeneration Onset Date: Unknown Thyroid disease Onset Date: Unknown Weakness Onset Date: Unknown Abnormal granulation tissue Onset Date: 08/15/11 Carpal tunnel syndrome Onset Date: Unknown Headache Onset Date: Unknown Rotator cuff tear Onset Date: 2014 left Surgical History (Last Reviewed 09/07/20 @ 08:04 by Heladio Fox CRNA) excision bone spur bilateral feet 08/03/2018 Dr. Sage H/O arthroscopic knee surgery Onset Date: Unknown Left Dr. Avila 01/04/2004 Right 01/03/2003 H/O dilation and curettage Onset Date: 03/2008 Dr. Campbell H/O neck surgery Onset Date: 2012 cervical disc decompression w/fusion of cervical spinal cord C5-6 H/O shoulder replacement Onset Date: 11/06/15 Dr. Mary History of back surgery Onset Date: Unknown History of carpal tunnel release Onset Date: 2008 Dr. Mary, bilaeral History of cataract removal with insertion of prosthetic lens Onset Date: Unknown 07/12/13 left 08/23/13 right History of colonoscopy Onset Date: 11/18/162007 Dr. Peacock bx negative 11/18/16 Bagan, diverticulosis, lucero 10 yrs History of esophagogastroduodenoscopy (EGD) Onset Date: 08/08/99 Charli, with biopsy, Gastritis History of hysterectomy Onset Date: Unknown History of laparoscopic appendectomy Onset Date: 05/27/16 Dr. Marin History of local excision of skin lesion Onset Date: 09/14/08 Right upper back, neurofibroma right upper chest, epidermal inclusion cyst History of microdiscectomy Onset Date: 05/29/18 Dr. Hugh Fontenot, [facility]. L4-5. History of total vaginal hysterectomy (TVH) Onset Date: 05/28/11 Dr. Campbell History of tubal ligation Onset Date: 1979 Hx of cholecystectomy Onset Date: 11/18/99 Dr. Augustin Hx of umbilical hernia repair Onset Date: 11/01/99 Dr. Augustin McCalls Culdoplasty Onset Date: 05/28/11 Previous back surgery Onset Date: 06/15/17 Dr. Fontenot, laminectomy on R of L4, w/partial facetectomy laminectomy on right of L5 w/ partial medial facetectomy Rectocele, female Onset Date: Unknown repair S/P YAG capsulotomy, bilateral Onset Date: 02/08/14 Total knee replacement status Onset Date: Unknown Left 02/2008, Right 12/2006 colporrhaphy Onset Date: 05/28/11 Family History (Last Reviewed 09/07/20 @ 08:04 by Heladio Fox CRNA) Brother Pancreatitis, Onset Age: 46 Daughter Alive and well Father CVA (cerebral vascular accident), Onset Age: 70 Hypertension Arthritis Grandmother No problems noted. Grandfather No problems noted. Mother Arthritis Hypertension, Onset Age: 85 Sister Heart disease, Onset Age: 70 Sister colon issues Son Alive and well Son No problems noted. - Family Anesthesia History Family History:: no untoward family reactions to anesthesia, no familial bleeding tendencies, no family history of clotting disorders, no family history of premature - Airway/Neck/Teeth Within Normal Limits:: Yes Teeth Condition: intact Mallampatti Score: 2 Thyromental (T-M) distance: > 6 cm Mandibulo Hyoid distance: > 3 cm - Respiratory Respiratory Physical: lungs clear Sleep Apnea currently treated: Yes - Cardiovascular Tolerate Activity: Fair Heart Sounds: S1 & S2, Regular - Gastrointestinal NPO since: mn - Anesthesia Assessment and Plan ASA Class: PS, III Anesthesia Type Plan: General LMA, Block - Right ultrasound guided interscaene nerve block for postop analgesia
--- NOTE | 2020-09-07 10:26 | OR ---
Operative Report - Dictated Report Narrative: DATE OF PROCEDURE: 09/07/2020 PHYSICIAN: Rene Robertson MD PIERCING SPECIALIST: Bert Acosta PA-C (provided and essential set of skilled, educated hands that assisted with transfer, positioning, prepping, draping, manipulation, retraction, placement of implants, irrigation, closure wounds, and application of dressings all which cannot be performed by the available surgical crew) PREOPERATIVE DIAGNOSIS: Right rotator cuff deficient shoulder arthrosis. POSTOPERATIVE DIAGNOSIS: Right rotator cuff deficient shoulder arthrosis. OPERATIONS AND PROCEDURES: Right reverse total shoulder arthroplasty. ANESTHESIA: General plus regional. COMPLICATIONS: None. DRAINS: None. SPECIMENS: Bone. ESTIMATED BLOOD LOSS: 50 mL. RETAINED IMPLANTS: 1. DePuy Delta Xtend cementless metaglene. 2. Delta Xtend glenosphere, 38 mm standard. 3. Delta Xtend size 10 modular humeral ESTES-coated cementless stem. 4. Size 1 right modular eccentric epiphysis ESTES-coated cementless. 5. Delta Xtend standard polyethylene size 38 plus 6 mm. 6. Metaglene locking screws, 36 mm and 30 mm and 24 mm in length. INDICATIONS FOR PROCEDURE: Mrs. Restrepo is a 65-year-old female with significant past history of rotator cuff tears and deficiency. She had treated these conservatively and had an irreparable rotator cuff with some progression of arthrosis of the shoulder and difficulty with activities of daily living in pain. She was seen in clinic and had failed conservative measures. She wished to proceed with surgical treatment. The risks, benefits, and alternatives were discussed in clinic, including the risk of , blood clots, bleeding, infection, nerve/tendon/blood vessel injury, malposition of components, failure of components, wear or limited range of motion, stiffness, and need for additional procedures, and she wished to proceed. Consent was obtained here in the clinic. DESCRIPTION OF PROCEDURE: After marking the correct extremity in the preoperative holding area, the patient was taken to the operating room. A timeout was performed. IV antibiotics consisting of Ancef were administered prior to procedure. The regional followed by general anesthetic was induced by the nurse general manager road production at my request. She was then transitioned to beach chair position with all bony prominences well padded. The head in neutral, legs with SCDs and supported,and the nonoperative arm supported. The surgical arm was prescrubbed with alcohol then prepped and draped in the standard sterile fashion and the skin was covered with ioban. A deltopectoral incision was made and blunt dissection was carried down through the skin. The cephalic vein was identified, protected, and retracted. We then went through the deltopectoral interval, exposing the proximal humerus. It was noted that there was no rotator cuff, supraspinatus and infraspinatus tendon, or teres minor tendon. The subscapularis was intact as well as the biceps. A tag suture was placed in subscapularis tendon as well as the anterior capsule, and this was elevated off the anterior humerus passing along the bicipital groove and into the rotator cuff interval, exposing the proximal humerus. This was then freed off the proximal humerus. A biceps tenotomy was performed and the shoulder was dislocated. The humeral head was noted to show signs of arthrosis. Next, an entry drill was placed down the humerus centered on the longitudinal axis entering off just onto the articular surface on the humeral head. Next were serial reamers up to the size 10 were utilized, which gave good overall cortical contact. Next, a proximal humeral head cut was performed. We made the cut at approximately 15 degrees of retroversion. This appeared to resect an appropriate amount of humeral head. This was then pinned into place and an oscillating saw was utilized to cut this humeral head, protecting the surroun ding soft tissues. We then placed a cap over the proximal humerus and turned our attention to the glenoid. The soft tissues were then elevated off the humeral neck as well as circumferentially around the glenoid. The glenoid was exposed. The remaining biceps tendon and labrum were resected. Using tractors, the glenoid was exposed and a guidewire was placed just posterior and inferior to the center of the glenoid. This was made so that it directed slightly superiorly but otherwise perpendicular to the glenoid on the axillary plane. Protecting the surrounding soft tissues, a reamer was utilized in order to remove the remaining cartilage. A retail greeting card merchandiser was utilized in order to resect the superior cartilage, and this resulted in a good overall appearance of the glenoid. The center drill lug hole was drilled and had good circumferential bone. The metaglene was then impacted into place and oriented for placement of screws along the mid plane in the superior and inferior quadrants of the glenoid as well as anterior to posterior screws. These were drilled and had appropriate overall length of screws on the superior and inferior metaglene screws. Good purchase was obtained with a 30 mm screw superiorly and 36 mm screw inferiorly and a 24 mm anterior locking screw. We then locked the screws into place. This gave good overall compression down to the glenoid with flat overall appearance and an appropriate alignment. We returned our attention to the proximal humerus. The proximal humeral reaming guide was placed for an eccentric reamer. This was utilized in order to prepare the proximal humerus. The trial stem was assembled on the back table and impacted into place. After placing the trial stem, we then returned to the metaglene. The glenosphere was then secured to the metaglene, impacted, and tightened ensuring that this was seated completely. We then returned to the humeral component and placed the trials of polyethylene inserts and found that the 6 mm gave good overall longitudinal traction with no gapping. The shoulder was able to reach 140 degrees of forward flexion and 130 degrees of abduction, external rotation was to 90 degrees and with fulcrum and armpit were unable to hinge the joint out of place, and there was no essentially no gapping of the polyethylene off the humeral head nor any signs of impingement on the glenoid neck. We felt that these were the appropriately placed and sized implants. We then dislocated the shoulder, removed the trial implants, thoroughly irrigated the humerus, impacted the final implants into place in the prior determined retroversion. The trial polyethylene was utilized again and was noted that the actual stem and the trial stem were equal in tension, and thus the final polyethylene was impacted into place. The shoulder was reduced, again noted to be stable, was then thoroughly irrigated. The subscapularis and biceps tendon were secured to the surrounding soft tissues using a #1 Ethibond suture. The deltopectoral interval was closed with #0 Vicryl. The deep tissues were then closed with #0 Vicryl, subcutaneous with 3-0 Monocryl, and the skin with lauri. Xeroform, 4 x 4, ABD, soft roll, and full arm Adam was applied. The patient was placed in a shoulder sling, awoken, and transferred to postanesthesia care in stable condition. All sponge, needle, and instrument counts were correct prior to closing the wounds. We will obtain postoperative films and be admitted to the floor for postoperative pain control, IV antibiotics, and starting of physical therapy. I anticipate a one to two night hospital stay.
[2020-09-07] MEDS ORDERED: RINGER'S SOLUTION,LACTATED 1,000 ML IV PRN (10:27)
[2020-09-07] MEDS ORDERED: ZOLPIDEM TARTRATE 5 MG TABLET PO PRN (10:27)
[2020-09-07] MEDS ORDERED: MORPHINE SULFATE 2 MG/ML DISP.SYRIN IV PRN (10:27)
[2020-09-07] MEDS ORDERED: ACETAMINOPHEN 500 MG TABLET PO PRN (10:27)
[2020-09-07] MEDS ORDERED: MAG HYDROX/ALUMINUM HYD/SIMETH 30 ML UDC PO PRN (10:27)
[2020-09-07] MEDS ORDERED: MAGNESIUM HYDROXIDE 30 ML UDC PO PRN (10:27)
[2020-09-07] MEDS ORDERED: CHOLESTYRAMINE/ASPARTAME 4 GM PACKET PO PRN (10:30)
[2020-09-07] MEDS ORDERED: NITROGLYCERIN 0.4 MG/TAB BTL SL PRN (10:30)
--- NOTE | 2020-09-07 10:46 | ANES ---
Post Anesthesia Discharge - Transfer of Care Transfer of Care handoff given to nurse: Yes - Discharge from PACU Discharge from PACU when meets criteria: Yes - Discharge to ASU Discharge to ASU-no complications/pt stable: Yes
--- NOTE | 2020-09-07 10:48 | ANES ---
Anesthesia Procedure Note Procedure Note: ANESTHESIA PROCEDURE NOTE Date of Procedure: 09/07/2020. Time of procedure: 0845. Performed by: Heladio Fox CRNA Realtime Captioner: None. Preprocedure diagnosis: Right shoulder rotator cuff deficient arthrosis. Post procedure diagnosis: Same. Procedure: Right ultrasound guided interscalene nerve block for postoperative analgesia. Indications: The patient is a 65-year-old female, requesting right ultrasound- guided interscalene nerve block for postoperative analgesia related to right reverse total shoulder arthroplasty. Findings: See below. Details of the procedure: The tissue over the intended target site was cleansed with ChloraPrep. 1 ml Lidocaine 1 % was infiltrated to the skin and sub cutaneous tissue. Under sterile technique and ultrasound guidance a 22-gauge block needle was inserted to the right brachial plexus nerve bundle between the anterior scalene and the middle scalene muscles. 30 mL's of 0.5% bupivacaine was injected after negative aspiration for blood. Needle tip and spread of local anesthetic around the brachial plexus was observed throughout the injection with realtime ultrasound visualization. The needle was removed intact. No complications were noted. The images were retained in the hospital medical database. EBL: Minimal. Fluids: N/A. Specimen: N/A. Post procedure condition: The patient tolerated the procedure well. No complications were noted. Thank you for this consultation. Heladio Fox CRNA
--- NOTE | 2020-09-07 11:13 | ANES ---
Post Anesthesia Assessment - Vital Signs Vitals: Last Vital Signs Temp 36.4 C 09/07/20 10:55 Pulse 82 09/07/20 10:55 Resp 20 09/07/20 10:55 BP 138/87 09/07/20 10:55 Pulse Ox 98 09/07/20 10:55 Airway Patency: Normal - Mental Status Level Of Consciousness: Awake - Pain Level Pain Score: 0 - N/V Assessment Nausea/Vomiting Presence: None Dehydration:: No
[2020-09-07] MEDS: KETOROLAC TROMETHAMINE 15 MG/ML VIAL IV SCH ×3 (11:15→23:24)
[2020-09-07] MEDS ORDERED: METOPROLOL TARTRATE 25 MG TABLET ONE (12:18)
[2020-09-07] MEDS: METOPROLOL TARTRATE 25 MG TABLET PO SCH ×2 (12:22→20:35)
[2020-09-07] MEDS: ceFAZolin SODIUM 1 GM in DEXTROSE 5 % IN WATER 100 ML IV SCH ×6 (12:28→23:26)
[2020-09-07] MEDS: POTASSIUM CHLORIDE 10 MEQ TABLET.SA PO SCH (17:41)
[2020-09-07] MEDS: oxyCODONE HCL/ACETAMINOPHEN 1 TAB TABLET PO PRN (20:31)
[2020-09-07] MEDS: NYSTATIN 15 APPL BTL TP SCH (20:31)
[2020-09-07] MEDS: GABAPENTIN 100 MG CAPSULE PO SCH (20:33)
[2020-09-07] MEDS: PRAMIPEXOLE DI-HCL 0.5 MG TABLET PO SCH (20:33)
[2020-09-07] MEDS: DULoxetine HCL 30 MG CAPSULE.SA PO SCH (20:34)
[2020-09-07] MEDS: PANTOPRAZOLE SODIUM 20 MG TABLET.DR PO SCH (20:34)
[2020-09-07] MEDS ORDERED: SIMVASTATIN 40 MG TABLET PO SCH (21:00)
[2020-09-07] MEDS ORDERED: SENNOSIDES/DOCUSATE SODIUM 1 TAB TABLET PO SCH (21:00)
[2020-09-08] MEDS: KETOROLAC TROMETHAMINE 15 MG/ML VIAL IV SCH (04:04)
[2020-09-08] MEDS: oxyCODONE HCL/ACETAMINOPHEN 1 TAB TABLET PO PRN ×2 (05:19→09:29)
[2020-09-08] MEDS ORDERED: LEVOTHYROXINE SODIUM 25 MCG TABLET PO SCH (07:00)
[2020-09-08] MEDS ORDERED: LEVOTHYROXINE SODIUM 100 MCG TABLET PO SCH (07:00)
--- NOTE | 2020-09-08 07:50 | DS ---
(1) Status post reverse arthroplasty of right shoulder Problem: Acute (2) Chronic back pain Problem: Chronic (3) Circulation disorder of lower extremity Problem: Chronic (4) Dysuria Problem: Chronic (5) Intractable neuropathic pain of lumbosacral origin Problem: Chronic (6) Lymphedema, not elsewhere classified Problem: Chronic (7) Weakness Problem: Chronic (8) Anticoagulant long-term use Problem: Chronic (9) Atrial fibrillation Problem: Chronic Qualifiers: (10) CHF (congestive heart failure) Problem: Chronic (11) COPD (chronic obstructive pulmonary disease) Problem: Chronic Qualifiers: (12) Congestive heart failure with left ventricular diastolic dysfunction, NYHA class 3 Problem: Chronic (13) Diabetes type 2, controlled Problem: Chronic Qualifiers: (14) GERD (gastroesophageal reflux disease) Problem: Chronic Qualifiers: (15) HTN (hypertension) Problem: Chronic Qualifiers: (16) Hypothyroidism Problem: Chronic Qualifiers: (17) Irritable Bowel Syndrome Problem: Chronic Qualifiers: (18) FORTINO on CPAP Problem: Chronic (19) Atrial fibrillation with rapid ventricular response Problem: Chronic Date of Discharge:: 09/08/20 Hospital Course: Mrs. Restrepo was admitted to the floor after undergoing right total shoulder arthr oplasty. Tolerated this well. Was admitted to the floor postoperatively for 24 hours of IV antibiotics, pain control, medical comanagement, and occupational and physical therapy. OT and PT were consulted to assist with activities of daily living and ambulation. Was made non-weightbearing with restricted external rotation. She was placed in a shoulder immobilizer.. Pain was initially controlled with IV regimen. This was transitioned to oral once tolerating a by mouth intake. Was resumed on home diet and medications. A Henley catheter was inserted in the operating room which was discontinued by postoperative day 1. Eliquis and SCDs were utilized for DVT prophylaxis. Vital signs remained stable to the hospital course. Physical examination throughout the hospital course showed an extremity that had sensation that was intact to light touch, palpable pulses, motor intact to the wrists, fingers, and elbow. Due to her limited assistance at home as well as her medical comorbidi ties it was felt that she would be more appropriate for transfer to group home for additional therapies and closer observation while she recovers from her shoulder. Instructions: Continue with non-weightbearing and restricted external rotation. Use the immobilizer as instructed. Do not bathe or soak the wound. Keep the wound clean and dry and cover with dry gauze and tape. Cover wound while showering. Continue with physical therapy and Occupational Therapy. Resume home diet. Report any fever over 101.5 Fahrenheit, uncontrolled pain, increased drainage, foul odor of drainage, new or increased calf pain or shortness of breath, or any other significant complaints. 325mg twice daily aspirin will be continued until instructed otherwise. No driving until instructed otherwise. Follow up in approximately 2-3 weeks. Procedures Performed: see notes below List Procedures: Right reverse shoulder arthroplasty Disposition: SNF Condition: Good Discharge Activity: Non-Weight bearing, Other - Reverse shoulder arthroplasty protocol Discharge Diet: Consistent carbs [facility] Therapy: Physical Therapy, Occupation Therapy Referrals: Marko Fatima MD [Primary Care Provider] - Additional Patient Instructions (free text): Discharging to [facility], for PT and OT to evaluate and treat. Prescriptions (Any new or edited meds): oxyCODONE HCL/ACETAMINOPHEN [Percocet 5 MG/325 MG] 1 - 2 tab PO Q4H PRN #50 tab PRN Reason: Moderate Pain (Pain Scale 4-6) Transmission Status: Received by [email or web address] Sennosides/Docusate Sodium [Senokot-S] 2 tab PO HS #60 tab Transmission Status: Pending to [facility] Complete Home Medications List: Complete Home Medication List: cholecalciferol (vitamin D3) 25 mcg (1,000 unit) capsule 1,000 unit PO DAILY #30 cap 03/26/18 Nitroglycerin [Nitrostat] 0.4 mg SL Q5MIN PRN #25 btl 11/08/18 iron 150 mg-vit C 60 mg-folate 1 [id number]-[id number]-[id number] tablet 1 tab PO DAILY #30 tab 11/15/19 Gabapentin [Neurontin] 300 mg PO BID 01/18/20 Apixaban [Eliquis] 5 mg PO BID 02/05/20 sitaGLIPtin PHOSPHATE [Januvia] 100 mg PO DAILY 02/05/20 ondansetron 8 mg disintegrating tablet 8 mg PO Q8H PRN #30 tab 02/08/20 levothyroxine 200 mcg tablet 200 mcg PO DAILY #90 tab 04/13/20 naloxone 4 mg/actuation nasal spray 4 mg JOSE Q2M PRN #2 ea 06/13/20 bupropion HCl 150 mg 24 hr tablet, extended release 150 mg PO DAILY #90 tab 07/06/20 duloxetine 60 mg capsule,delayed release 60 mg PO BID #60 cap 07/06/20 metformin 1,000 mg tablet 1,000 mg PO BID #30 tab 07/06/20 metolazone 5 mg tablet 5 mg PO DAILY #30 tab 07/06/20 pramipexole 1 mg tablet 2 mg PO BID #120 tab 07/06/20 simvastatin 40 mg tablet 40 mg PO HS #30 tab 07/06/20 topiramate 100 mg tablet 100 mg PO DAILY #30 tab 07/06/20 levothyroxine 25 mcg tablet See Rx Instructions .ROUTE .COMPLEX #42 tab 08/03/20 omeprazole 20 mg capsule,delayed release 20 mg PO BID #60 cap 08/03/20 nystatin 100,000 unit/gram topical powder 1 applic TP BID #60 g 08/07/20 furosemide 40 mg tablet 40 mg PO Q OTHER DAY #15 tab 08/09/20 metoprolol tartrate 25 mg tablet See Rx Instructions .ROUTE .COMPLEX #60 tab 08/09/20 digoxin 125 mcg (0.125 mg) tablet See Rx Instructions .ROUTE .COMPLEX #30 tab 08/30/20 potassium chloride 10 mEq tablet,extended release(part/cryst) See Rx Inst ructions .ROUTE .COMPLEX #120 tab 08/30/20 Cholestyramine/Aspartame [Cholestyramine Light Packet] 4 g PO PRN PRN 09/07/20 Sennosides/Docusate Sodium [Senokot-S] 2 tab PO HS #60 tab 09/08/20 oxyCODONE HCL/ACETAMINOPHEN [Percocet 5 MG/325 MG] 1 - 2 tab PO Q4H PRN #50 tab 09/08/20
[2020-09-08] MEDS: DULoxetine HCL 30 MG CAPSULE.SA PO SCH (08:21)
[2020-09-08] MEDS: POTASSIUM CHLORIDE 10 MEQ TABLET.SA PO SCH (08:21)
[2020-09-08] MEDS: PANTOPRAZOLE SODIUM 20 MG TABLET.DR PO SCH (08:21)
[2020-09-08] MEDS: PRAMIPEXOLE DI-HCL 0.5 MG TABLET PO SCH (08:22)
[2020-09-08] MEDS: GABAPENTIN 100 MG CAPSULE PO SCH (08:22)
[2020-09-08] MEDS: METOPROLOL TARTRATE 25 MG TABLET PO SCH (08:26)
[2020-09-08] MEDS: NYSTATIN 15 APPL BTL TP SCH (08:31)
[2020-09-08] MEDS ORDERED: APIXABAN 5 MG TABLET PO SCH (09:00)
[2020-09-08] MEDS ORDERED: TOPIRAMATE 50 MG TABLET PO SCH (09:00)
[2020-09-08] MEDS ORDERED: FUROSEMIDE 40 MG TABLET PO SCH (09:00)
[2020-09-08] MEDS ORDERED: IRON POLYSACCHARIDE COMPLEX 1 CAP CAPSULE PO SCH (09:00)
[2020-09-08] MEDS ORDERED: buPROPion HCL 150 MG TAB.SR.24H PO SCH (09:00)
[2020-09-08] MEDS ORDERED: DIGOXIN 0.125 MG TABLET PO SCH (09:00)
[2020-09-08] MEDS ORDERED: CHOLECALCIFEROL 1,000 UNIT CAPSULE PO SCH (09:00)
[2020-09-08] MEDS ORDERED: METOLAZONE 5 MG TABLET PO SCH (09:00)
[2020-09-08] MEDS ORDERED: sitaGLIPtin PHOSPHATE 50 MG TABLET PO SCH (09:00)
[2020-09-08 09:16] VITALS: BP 116/61
== END 2020-09-08 09:37 | DRG 483 ==
LOC: MS 07:11
PROVIDERS: ADMIT Orthopaedic Surgery; ATTEND Orthopaedic Surgery
DX: I99.9 Unspecified disorder of circulatory system; G47.33 Obstructive sleep apnea (adult) (pediatric); I50.32 Chronic diastolic (congestive) heart failure; K58.9 Irritable bowel syndrome, unspecified; Z79.01 Long term (current) use of anticoagulants; M19.011 Primary osteoarthritis, right shoulder; E03.9 Hypothyroidism, unspecified; I11.0 Hypertensive heart disease with heart failure; R53.1 Weakness; G89.29 Other chronic pain; I89.0 Lymphedema, not elsewhere classified; R30.0 Dysuria; K21.9 Gastro-esophageal reflux disease without esophagitis; I48.20 Chronic atrial fibrillation, unspecified; J44.9 Chronic obstructive pulmonary disease, unspecified; M54.5 Low back pain; E11.9 Type 2 diabetes mellitus without complications

== ENCOUNTER 2020-10-20 20:57 | Inpatient (IN) ==
[2020-10-20] MEDS ORDERED: cefTRIAXone SODIUM 2,000 MG/100 ML BAG IV ONE (21:27)
--- NOTE | 2020-10-20 21:28 | ERNOTE ---
Lower Extremity HPI - Narrative Date of Service: 10/20/20 - General Lower Extremities Pain: leg: left Time Seen by Provider: 10/20/20 21:15 Source: patient, family Exam Limitations: no limitations - Immun/Allergies/Home Medications Immunizations: IMMUNIZATION HX Immunizations Up to Date Yes History of Influenza Vaccine Yes Hx Pneumococcal Vaccination Yes Allergies/Adverse Reactions: Allergies Allergy/AdvReac Type Severity Reaction Status Date / Time ciprofloxacin HCl Allergy Mild hot and Verified 10/19/20 13:14 [From Cipro] itching cyclobenzaprine AdvReac Severe grogginess/ Verified 10/19/20 13:14 falls pregabalin [From Lyrica] AdvReac Intermediate cellulitis Verified 10/19/20 13:14 Home Medications: HOME MEDICATIONS cholecalciferol (vitamin D3) 25 mcg (1,000 unit) capsule 1,000 unit PO DAILY #30 cap 03/26/18 [Last Taken 11/05/18] Nitroglycerin [Nitrostat] 0.4 mg SL Q5MIN PRN #25 btl 11/08/18 [Last Taken Unknown] iron 150 mg-vit C 60 mg-folate 1 [id number] tablet 1 tab PO DAILY #30 tab 11/15/19 [Last Taken Unknown] Gabapentin [Neurontin] 300 mg PO BID 01/18/20 [Last Taken Unknown] Apixaban [Eliquis] 5 mg PO BID 02/05/20 [Last Taken 09/05/20] sitaGLIPtin PHOSPHATE [Januvia] 100 mg PO DAILY 02/05/20 [Last Taken Unknown] ondansetron 8 mg disintegrating tablet 8 mg PO Q8H PRN #30 tab 02/08/20 [Last Taken Unknown] naloxone 4 mg/actuation nasal spray 4 mg JOSE Q2M PRN #2 ea 06/13/20 [Last Taken Unknown] bupropion HCl 150 mg 24 hr tablet, extended release 150 mg PO DAILY #90 tab 07/06/20 [Last Taken Unknown] duloxetine 60 mg capsule,delayed release 60 mg PO BID #60 cap 07/06/20 [Last Taken Unknown] metformin 1,000 mg tablet 1,000 mg PO BID #30 tab 07/06/20 [Last Taken Unknown] metolazone 5 mg tablet 5 mg PO DAILY #30 tab 07/06/20 [Last Taken Unknown] pramipexole 1 mg tablet 2 mg PO BID #120 tab 07/06/20 [Last Taken Unknown] simvastatin 40 mg tablet 40 mg PO HS #30 tab 07/06/20 [Last Taken Unknown] topiramate 100 mg tablet 100 mg PO DAILY #30 tab 07/06/20 [Last Taken Unknown] nystatin 100,000 unit/gram topical powder 1 applic TP BID #60 g 08/07/20 [Last Taken Unknown] furosemide 40 mg tablet 40 mg PO Q OTHER DAY #15 tab 08/09/20 [Last Taken Unknown] metoprolol tartrate 25 mg tablet See Rx Instructions .ROUTE .COMPLEX #60 tab 08/09/20 [Last Taken Unknown] digoxin 125 mcg (0.125 mg) tablet See Rx Instructions .ROUTE .COMPLEX #30 tab 08/30/20 [Last Taken Unknown] potassium chloride 10 mEq tablet,extended release(part/cryst) See Rx Instructions .ROUTE .COMPLEX #120 tab 08/30/20 [Last Taken Unknown] Cholestyramine/Aspartame [Cholestyramine Light Packet] 4 g PO PRN PRN 09/07/20 [Last Taken Unknown] Sennosides/Docusate Sodium [Senokot-S] 2 tab PO HS #60 tab 09/08/20 [Last Taken Unknown] aspirin 325 mg tablet 325 mg PO BID 09/12/20 [Last Taken Unknown] Nasal CPAP See Rx Instructions .ROUTE .MEDSUPPLY #1 ea 09/25/20 [Last Taken Unknown] latanoprost 0.005 % eye drops 1 drp OP DAILY #2.5 ml 09/25/20 [Last Taken Unknown] multivitamin 1 tab PO DAILY #1 tab 09/25/20 [Last Taken Unknown] levothyroxine 200 mcg tablet 200 mcg PO DAILY tab 10/18/20 [Last Taken Unknown] levothyroxine 25 mcg tablet 25 mcg PO DAILY tab 10/18/20 [Last Taken Unknown] sulfamethoxazole 800 mg-trimethoprim 160 mg tablet 1 tab PO BID #30 tab 10/19/20 [Last Taken Unknown] - History of Present Illness Narrative: Patient is a 65-year-old female that presents to the emergency department with complaint of gradual worsening of area of redness and warmth to the left lower extremity that she states is now swollen and painful. Patient presents with daughter who states that she had a similar reaction on the right lower extremity that resolved without difficulty. Patient was evaluated by family physician 2 days ago and was being treated symptomatically and antibiotic. Daughter states that the leg is now swollen painful and the redness has increased in surface area. Patient currently is taking Bactrim. Patient has history of lymphedema, cellulitis, atrial fibrillation, diabetes type 2, peripheral vascular disease, hypertension, and CHF. Patient states she has felt flushed but denies fever or chills or nausea or vomiting. Date (Duration): 10/13/20 Modifying Factors - (Improves): Reports: rest Modifying Factors - (Worsens): Reports: movement Associated Symptoms: Reports: unable to bear weight Prior Treament: Reports: recently seen Review of Systems - Review of Systems Constitutional: Present: no symptoms reported EYE: Present: no symptoms reported ENT: Present: no symptoms reported Respiratory: Present: no symptoms reported Cardiology: Present: no symptoms reported Gastrointestinal/Abdominal: Present: no symptoms reported Genitourinary: Present: no symptoms reported Musculoskeletal: Present: other - swelling pain left leg Skin: Present: rash, change in color, other - increased warm Neurological: Present: no symptoms reported Endocrine: Present: no symptoms reported Hematologic/Lymphatic: Present: easy bruising Psych: Present: no symptoms reported Medical History (Last Reviewed 10/20/20 @ 22:11 by Alvina Patel MD) Painful total knee replacement, left (Chronic) Status post primary as well as revision knee Weakness (Chronic) Cellulitis (Acute) recurrent. Diarrhea in adult patient (Chronic) much improved with addition of cholestyramine powder. Unstable right ankle (Chronic) Unstable left ankle (Chronic) Pain in both feet (Chronic) Fecal incontinence (Chronic) Irritable Bowel Syndrome (Chronic) Iron (Fe) deficiency anemia (Chronic) Congestive heart failure with left ventricular diastolic dysfunction, NYHA class 3 (Chronic) Edema noted on examination (Chronic) Her she has swelling up into the waist area that is palpable. The lower legs are taut and shiny and tender. No cellulitis is present. She is having orthopnea. Her O2 sats however are 97 to 100% on room air while ambulating so she does not qualify for oxygen today. She gets short of breath and just talking and is awakened when she is trying to sleep. She is been wearing her CPAP even when awake trying to get more air at home. I suspect she has significant mesentery edema and probably not really absorbing her p.o. meds very well. Uncontrolled diabetes mellitus with diabetic polyneuropathy (Chronic) Type II diabetes mellitus (Chronic) Fatigue (Chronic) Hypothyroidism (Chronic) Has daytime drowsiness (Chronic) Atrial fibrillation with rapid ventricular response (Chronic) Onychomycosis Onset Date: Unknown Arthritis Onset Date: Unknown Diabetes mellitus, type II Onset Date: Unknown Hyperlipidemia Onset Date: 08/26/16 Hypertension Onset Date: Unknown Hypothyroidism Onset Date: Unknown IBS (irritable bowel syndrome) Onset Date: Unknown Joint pain Onset Date: Unknown Macular degeneration Onset Date: Unknown Thyroid disease Onset Date: Unknown Weakness Onset Date: Unknown Abnormal granulation tissue Onset Date: 08/15/11 Carpal tunnel syndrome Onset Date: Unknown Headache Onset Date: Unknown Rotator cuff tear Onset Date: 2014 left Surgical History: Surgical History (Last Reviewed 10/20/20 @ 22:11 by Alvina Patel MD) S/P shoulder surgery Onset Date: ~09/07/20 OPERATIONS AND PROCEDURES: Right reverse total shoulder arthroplasty. Dr. Robertson excision bone spur bilateral feet 08/03/2018 Dr. Sage H/O arthroscopic knee surgery Onset Date: Unknown Left Dr. Avila 01/04/2004 Right 01/03/2003 H/O dilation and curettage Onset Date: 03/2008 Dr. Campbell H/O neck surgery Onset Date: 2012 cervical disc decompression w/fusion of cervical spinal cord C5-6 H/O shoulder replacement Onset Date: 11/06/15 Dr. Mary History of back surgery Onset Date: Unknown History of carpal tunnel release Onset Date: 2008 Dr. Mary, bilaeral History of cataract removal with insertion of prosthetic lens Onset Date: Unknown 07/12/13 left 08/23/13 right History of colonoscopy Onset Date: 11/18/162007 Dr. Peacock bx negative 11/18/16 Tania, diverticulosis, lucero 10 yrs History of esophagogastroduodenoscopy (EGD) Onset Date: 08/08/99 Tinguely, with biopsy, Gastritis History of hysterectomy Onset Date: Unknown History of laparoscopic appendectomy Onset Date: 05/27/16 Dr. Marin History of local excision of skin lesion Onset Date: 09/14/08 Right upper back, neurofibroma right upper chest, epidermal inclusion cyst History of microdiscectomy Onset Date: 05/29/18 Dr. Hugh Fontenot, [facility]. L4-5. History of total vaginal hysterectomy (TVH) Onset Date: 05/28/11 Dr. Campbell History of tubal ligation Onset Date: 1979 Hx of cholecystectomy Onset Date: 11/18/99 Dr. Augustin Hx of umbilical hernia repair Onset Date: 11/01/99 Dr. Augustin McCradha Culdoplasty Onset Date: 05/28/11 Previous back surgery Onset Date: 06/15/17 Dr. Fontenot, laminectomy on R of L4, w/partial facetectomy laminectomy on right of L5 w/ partial medial facetectomy Rectocele, female Onset Date: Unknown repair S/P YAG capsulotomy, bilateral Onset Date: 02/08/14 Total knee replacement status Onset Date: Unknown Left 02/2008, Right 12/2006 colporrhaphy Onset Date: 05/28/11 Family History: Family History (Last Reviewed 10/20/20 @ 22:11 by Alvina Patel MD) Brother Pancreatitis, Onset Age: 46 Daughter Alive and well Father CVA (cerebral vascular accident), Onset Age: 70 Hypertension Arthritis Grandmother No problems noted. Grandfather No problems noted. Mother Arthritis Hypertension, Onset Age: 85 Sister Heart disease, Onset Age: 70 Sister colon issues Son Alive and well Son No problems noted. Social History: (Last Reviewed 10/20/20 @ 22:11 by Alvina Patel MD) Social History: Marital status: / lives independently: Yes household members: none number of children: 6 current occupational status: retired current occupation: disability Highest level of school completed/degree received: 9th grade Service: No Tobacco: Smoking Status: Current some day smoker tobacco type: cigarettes Smoking cigarettes per day: 1 Tobacco: How many years used: 48 how long ago did patient quit smoking: States smokes about 1 every 3 or 4 days. quit status: has quit before Alcohol: alcohol intake: never Substance Use: substance use type: does not use Dietary Habits: caffeine: Yes caffeine comment: some days, soda Type: carbonated beverages Exercise: frequency: does not exercise Physical Exam - Physical Exam General Appearance: Present: mild distress Head Exam: Present: normal inspection, no evidence of injury Eye Exam: Normal inspection: bilateral, PERRL: bilateral, EOMI: bilateral Ears, Nose, Throat: Present: normal ENT inspection Neck: Present: normal inspection, nontender Respiratory: Present: no respiratory distress, normal breath sounds, no accessory muscle use, chest nontender, lungs clear Cardiovascular/Chest: Present: irregularly irregular Peripheral Pulses: N=norm/S=strong/W=weak/B=bound/A=absent: Radial (R): Normal, Radial (L): Normal, Dorsalis-pedis (R): Normal, Dorsalis-pedis (L): Normal Gastrointestinal/Abdominal: Present: normal bowel sounds, nontender, nondistended, soft, no organomegaly Back Exam: Present: normal inspection, normal range of motion Extremity Exam: Present: pedal edema, calf tenderness, extremity edema, other Neurological Exam: Present: alert, oriented, normal mood/affect, no motor/sensory deficits Skin Exam: Present: skin rash Progress - Results and Orders Patient's Lab Results:: I have reviewed the patient's lab results. - Vital Signs Patient's Vital Signs:: I have reviewed the patient's vital signs. Vital Signs: Vital Signs 10/20/20 21:02 Temperature 36.7 C Pulse Rate 122 H Respiratory Rate 16 Blood Pressure 128/69 O2 Sat by Pulse Oximetry 94 - EKG EKG #1 EKG read: Interp. by me - EKG demonstrates atrial fibrillation with rate of 121. - X-Ray X-Ray #1 X-Ray: chest - Chest x-ray demonstrates cardiomegaly but no acute changes. - Progress/Reassessment Chief Complaint: Lower Extremity Pain/ Injury Plan - Plan Plan: Patient was taking Bactrim for cellulitis. Patient has increased symptoms of warmth swelling and redness and pain. Patient will be admitted for treatment of cellulitis with IV antibiotics. Discussed with Dr. Giang. Patient will be admitted for OBS with continued IV antibiotics. Departure Clinical Impression: Cellulitis - Departure Disposition: Short Term Hospital Inpatient Condition: Good
[2020-10-20] MEDS ORDERED: fentaNYL CITRATE/PF 50 MCG/ML AMPUL IV ONE (21:42)
[2020-10-20 22:05] LABS: Hematocrit 41.5 % (37.0-47.0); Hemoglobin 12.3 gm/dL (12.5-16.0); Mean Cell Volume 83.3 fl (78-100); Mean Corpuscular Hemoglobin 24.7 pg (27-31); Mean Corpuscular Hgb Conc 29.6 g/dl (32-36); Mean Platelet Volume 8.5 fl (8-12.5); Neutrophil # 15.2 K/mm3 (1.3-6.0); Neutrophil % 87.4 % (42-75.0); Platelet Count 387 K/mm3 (150-450); Red Blood Count 4.98 M/mm3 (4.2-5.4); Red Cell Distribution Width 16.2 % (11.5-14.0); White Blood Count 17.4 K/mm3 (4.0-10.5)
[2020-10-20 22:15] LABS: Prothrombin Time (Patient) 12.8 Seconds (9.1-10.7)
[2020-10-20 22:19] LABS: Urine Bilirubin Negative (NEGATIVE); Urine Blood 25 /ul (NEGATIVE); Urine Ketone Negative (NEGATIVE); Urine Nitrite Negative (NEGATIVE); Urine Protein Negative (NEGATIVE); Urine Urobilinogen Normal (NORMAL); Urine pH 6.5 pH (5.0-7.0)
[2020-10-20 22:25] LABS: Albumin * 2.8 gm/dl (3.4-5.0); Anion Gap 10.5 mmol/L (6.8-13.8); BUN/Creatinine Ratio 15.6 (9.0-21.6); Bilirubin, Total 0.5 mg/dL (0.0-1.1); Ca. Corrected For Albumin 9.9 mg/dL (8.4-10.2); Calcium * 9.3 mg/dL (7.9-10.9); Carbon Dioxide 31.6 mmol/L (24-32.6); Magnesium 1.7 mg/dL (1.2-2.8); Potassium 3.1 mmol/L (3.4-4.6); Total Protein 7.3 gm/dL (6.2-8.2)
[2020-10-20 22:40] LABS: INR 1.24 INR (0.92-1.08)
[2020-10-20] MEDS ORDERED: ACETAMINOPHEN 325 MG TABLET PO ONE (22:42)
[2020-10-20] MEDS ORDERED: VANCOMYCIN/WATER FOR INJ (PEG) 1 GM/200 ML BAG IV ONE (22:43)
[2020-10-20] MEDS ORDERED: POTASSIUM CHLORIDE 20 MEQ TABLET.SA PO ONE (22:44)
[2020-10-20 22:50] LABS: Urine Appearance Clear (CLEAR); Urine Bacteria TRACE; Urine Color Yellow; Urine RBC 0-5 /hpf (0-5); Urine WBC None Seen /hpf (0-5)
[2020-10-21] MEDS ORDERED: POTASSIUM CHLORIDE 10 MEQ TABLET.SA PO ONE (08:49)
--- NOTE | 2020-10-21 09:17 | HPDIS ---
Chief Complaint - Chief Complaint Date of Service: 10/21/20 Time of Service: 09:05 Chief Complaint: left leg swelling/redness and pain History of Present Illness: Gertrude Restrepo is a 65-year-old white female patient of Dr. Nice with past medical history significant for diabetes mellitus type 2, chronic atrial fibrillation, chronic venous insufficiency, peripheral neuropathy, hypothyroidism, hypertension, hyperlipidemia, obstructive sleep apnea on CPAP, COPD, who was admitted on 10/20/2020 because of increasing swelling and redness and warmth over left lower extremity. She says that the swelling is causing her pain. She had cellulitis of her right lower extremity 1-1/2 weeks ago and her primary care physician started her on antibiotics and she just finished her antibiotic the day before she noticed her left lower extremity starting to get red and swollen. Her primary care physician started her on Bactrim and she said she has been on it for 1 day. It did not give her relief with the increasing swelling, redness and tenderness and so she went to our emergency room. She was also having some fever and chills. She was started on IV Rocephin and vancomycin in the emergency room and was admitted for observation. Her temperat ure was 38.9 (Tmax). Medical History (Last Reviewed 10/20/20 @ 22:11 by Alvina Patel MD) Painful total knee replacement, left (Chronic) Status post primary as well as revision knee Weakness (Chronic) Cellulitis (Acute) recurrent. Diarrhea in adult patient (Chronic) much improved with addition of cholestyramine powder. Unstable right ankle (Chronic) Unstable left ankle (Chronic) Pain in both feet (Chronic) Fecal incontinence (Chronic) Irritable Bowel Syndrome (Chronic) Iron (Fe) deficiency anemia (Chronic) Congestive heart failure with left ventricular diastolic dysfunction, NYHA class 3 (Chronic) Edema noted on examination (Chronic) Her she has swelling up into the waist area that is palpable. The lower legs are taut and shiny and tender. No cellulitis is present. She is having orthopnea. Her O2 sats however are 97 to 100% on room air while ambulating so she does not qualify for oxygen today. She gets short of breath and just talking and is awakened when she is trying to sleep. She is been wearing her CPAP even when awake trying to get more air at home. I suspect she has significant mesentery edema and probably not really absorbing her p.o. meds very well. Uncontrolled diabetes mellitus with diabetic polyneuropathy (Chronic) Type II diabetes mellitus (Chronic) Fatigue (Chronic) Hypothyroidism (Chronic) Has daytime drowsiness (Chronic) Atrial fibrillation with rapid ventricular response (Chronic) Onychomycosis Onset Date: Unknown Arthritis Onset Date: Unknown Diabetes mellitus, type II Onset Date: Unknown Hyperlipidemia Onset Date: 08/26/16 Hypertension Onset Date: Unknown Hypothyroidism Onset Date: Unknown IBS (irritable bowel syndrome) Onset Date: Unknown Joint pain Onset Date: Unknown Macular degeneration Onset Date: Unknown Thyroid disease Onset Date: Unknown Weakness Onset Date: Unknown Abnormal granulation tissue Onset Date: 08/15/11 Carpal tunnel syndrome Onset Date: Unknown Headache Onset Date: Unknown Rotator cuff tear Onset Date: 2014 left Surgical History: Surgical History (Last Reviewed 10/20/20 @ 22:11 by Alvina Patel MD) S/P shoulder surgery Onset Date: ~09/07/20 OPERATIONS AND PROCEDURES: Right reverse total shoulder arthroplasty. Dr. Robertson excision bone spur bilateral feet 08/03/2018 Dr. Sage H/O arthroscopic knee surgery Onset Date: Unknown Left Dr. Avila 01/04/2004 Right 01/03/2003 H/O dilation and curettage Onset Date: 03/2008 Dr. Campbell H/O neck surgery Onset Date: 2012 cervical disc decompression w/fusion of cervical spinal cord C5-6 H/O shoulder replacement Onset Date: 11/06/15 Dr. Mary History of back surgery Onset Date: Unknown History of carpal tunnel release Onset Date: 2008 Dr. Mary, bilaeral History of cataract removal with insertion of prosthetic lens Onset Date: Unknown 07/12/13 left 08/23/13 right History of colonoscopy Onset Date: 11/18/162007 Dr. Peacock bx negative 11/18/16 Tania, diverticulosis, lucero 10 yrs History of esophagogastroduodenoscopy (EGD) Onset Date: 08/08/99 Tinguely, with biopsy, Gastritis History of hysterectomy Onset Date: Unknown History of laparoscopic appendectomy Onset Date: 05/27/16 Dr. Marin History of local excision of skin lesion Onset Date: 09/14/08 Right upper back, neurofibroma right upper chest, epidermal inclusion cyst History of microdiscectomy Onset Date: 05/29/18 Dr. Hugh [place], [facility]. L4-5. History of total vaginal hysterectomy (TVH) Onset Date: 05/28/11 Dr. Campbell History of tubal ligation Onset Date: 1979 Hx of cholecystectomy Onset Date: 11/18/99 Dr. Augustin Hx of umbilical hernia repair Onset Date: 11/01/99 Dr. Augustin McCalls Culdoplasty Onset Date: 05/28/11 Previous back surgery Onset Date: 06/15/17 Dr. Fontenot, laminectomy on R of L4, w/partial facetectomy laminectomy on right of L5 w/ partial medial facetectomy Rectocele, female Onset Date: Unknown repair S/P YAG capsulotomy, bilateral Onset Date: 02/08/14 Total knee replacement status Onset Date: Unknown Left 02/2008, Right 12/2006 colporrhaphy Onset Date: 05/28/11 Family History: Family History (Last Reviewed 10/20/20 @ 22:11 by Alvina Patel MD) Brother Pancreatitis, Onset Age: 46 Daughter Alive and well Father CVA (cerebral vascular accident), Onset Age: 70 Hypertension Arthritis Grandmother No problems noted. Grandfather No problems noted. Mother Arthritis Hypertension, Onset Age: 85 Sister Heart disease, Onset Age: 70 Sister colon issues Son Alive and well Son No problems noted. Social History: (Last Reviewed 10/20/20 @ 22:11 by Alvina Patel MD) Social History: Marital status: / lives independently: Yes household members: none number of children: 6 current occupational status: retired current occupation: disability Highest level of school completed/degree received: 9th grade Service: No Tobacco: Smoking Status: Current some day smoker tobacco type: cigarettes Smoking cigarettes per day: 1 Tobacco: How many years used: 48 how long ago did patient quit smoking: States smokes about 1 every 3 or 4 days. quit status: has quit before Alcohol: alcohol intake: never Substance Use: substance use type: does not use Dietary Habits: caffeine: Yes caffeine comment: some days, soda Type: carbonated beverages Exercise: frequency: does not exercise Review Of Systems (GEN) - Review of Systems Generalized/Overall Review: Present: Chills, Fever EENTM: Absent: Blurred Vision Respiratory: Absent: Cough, Shortness of Breath, Wheezing Cardiac: Present: Edema. Absent: Chest Pain, Palpitations Abdominal: Absent: Nausea, Vomiting, Abdominal Pain Genitourinary: Absent: Urgency, Frequency Musculoskeletal: Present: Joint Pain. Absent: Back Pain Neurological: Present: Numbness, Tingling. Absent: Headache Skin: Present: Change in Color, Other - Warmness, redness, mild tenderness, Immunizations: IMMUNIZATION HX Immunizations Up to Date Yes History of Influenza Vaccine Yes Hx Pneumococcal Vaccination Yes Allergies/Adverse Reactions: Allergies Allergy/AdvReac Type Severity Reaction Status Date / Time ciprofloxacin HCl Allergy Mild hot and Verified 10/19/20 13:14 [From Cipro] itching cyclobenzaprine AdvReac Severe grogginess/ Verified 10/19/20 13:14 falls pregabalin [From Lyrica] AdvReac Intermediate cellulitis Verified 10/19/20 13:14 Home Medications: HOME MEDICATIONS cholecalciferol (vitamin D3) 25 mcg (1,000 unit) capsule 1,000 unit PO DAILY #30 cap 03/26/18 [Last Taken 11/05/18] Nitroglycerin [Nitrostat] 0.4 mg SL Q5MIN PRN #25 btl 11/08/18 [Last Taken Unknown] iron 150 mg-vit C 60 mg-folate 1 [id number] tablet 1 tab PO DAILY #30 tab 11/15/19 [Last Taken Unknown] Gabapentin [Neurontin] 300 mg PO BID 01/18/20 [Last Taken Unknown] Apixaban [Eliquis] 5 mg PO BID 02/05/20 [Last Taken 09/05/20] sitaGLIPtin PHOSPHATE [Januvia] 100 mg PO DAILY 02/05/20 [Last Taken Unknown] ondansetron 8 mg disintegrating tablet 8 mg PO Q8H PRN #30 tab 02/08/20 [Last Taken Unknown] naloxone 4 mg/actuation nasal spray 4 mg JOSE Q2M PRN #2 ea 06/13/20 [Last Taken Unknown] bupropion HCl 150 mg 24 hr tablet, extended release 150 mg PO DAILY #90 tab 07/06/20 [Last Taken Unknown] duloxetine 60 mg capsule,delayed release 60 mg PO BID #60 cap 07/06/20 [Last T aken Unknown] metformin 1,000 mg tablet 1,000 mg PO BID #30 tab 07/06/20 [Last Taken Unknown] metolazone 5 mg tablet 5 mg PO DAILY #30 tab 07/06/20 [Last Taken Unknown] pramipexole 1 mg tablet 2 mg PO BID #120 tab 07/06/20 [Last Taken Unknown] simvastatin 40 mg tablet 40 mg PO HS #30 tab 07/06/20 [Last Taken Unknown] topiramate 100 mg tablet 100 mg PO DAILY #30 tab 07/06/20 [Last Taken Unknown] nystatin 100,000 unit/gram topical powder 1 applic TP BID #60 g 08/07/20 [Last Taken Unknown] furosemide 40 mg tablet 40 mg PO Q OTHER DAY #15 tab 08/09/20 [Last Taken Unknown] metoprolol tartrate 25 mg tablet See Rx Instructions .ROUTE .COMPLEX #60 tab 08/09/20 [Last Taken Unknown] digoxin 125 mcg (0.125 mg) tablet See Rx Instructions .ROUTE .COMPLEX #30 tab 08/30/20 [Last Taken Unknown] potassium chloride 10 mEq tablet,extended release(part/cryst) See Rx Instructions .ROUTE .COMPLEX #120 tab 08/30/20 [Last Taken Unknown] Cholestyramine/Aspartame [Cholestyramine Light Packet] 4 g PO PRN PRN 09/07/20 [Last Taken Unknown] Sennosides/Docusate Sodium [Senokot-S] 2 tab PO HS #60 tab 09/08/20 [Last Taken Unknown] aspirin 325 mg tablet 325 mg PO BID 09/12/20 [Last Taken Unknown] Nasal CPAP See Rx Instructions .ROUTE .MEDSUPPLY #1 ea 09/25/20 [Last Taken Unknown] latanoprost 0.005 % eye drops 1 drp OP DAILY #2.5 ml 09/25/20 [Last Taken Unknown] multivitamin 1 tab PO DAILY #1 tab 09/25/20 [Last Taken Unknown] levothyroxine 200 mcg tablet 200 mcg PO DAILY tab 10/18/20 [Last Taken Unknown] levothyroxine 25 mcg tablet 25 mcg PO DAILY tab 10/18/20 [Last Taken Unknown] sulfamethoxazole 800 mg-trimethoprim 160 mg tablet 1 tab PO BID #30 tab 10/19/20 [Last Taken Unknown] Exam - Exam Vital Signs: Vital Signs - Last Taken Temp 37.2 C 10/21/20 06:46 Pulse 104 H 10/21/20 06:46 Resp 16 10/21/20 06:46 BP 133/66 10/21/20 06:46 Pulse Ox 94 10/21/20 06:46 Constitutional: Present: Alert, Oriented x3, Cooperative, Well developed, Well nourished, Elderly ENT Exam: Present: hearing grossly normal Eye Exam: bilateral eye: normal inspection, PERRL, EOMI Respiratory: Present: decreased breath sounds, No rales, No wheezing Cardiovascular/Chest: Present: no JVD, no murmur, irregularly irregular Abdomen: Present: Normal bowel sounds, soft, nontender, nondistended Extremity: Present: no calf tenderness, lower extremity edema, swelling Skin Exam: Present: warm/dry, other - Erythematous, left leg Diagnostic Studies: Abnormal Lab Results 10/20/20 10/20/20 10/20/20 Range/Units 21:59 21:59 21:59 WBC 17.4 H (4.0-10.5) K/mm3 Hgb 12.3 L (12.5-16.0) gm/dL MCH 24.7 L (27-31) pg MCHC 29.6 L (32-36) g/dl RDW 16.2 H (11.5-14.0) % Immature Gran % (Auto) 0.60 H (0.001-0.429) % Immature Gran # (Auto) 0.10 H (0.000-0.0310) K/mm3 Neutrophils % 87.4 H (42-75.0) % Lymphocytes % 5.9 L (20-51) % Neutrophils # 15.2 H (1.3-6.0) K/mm3 Lymphocytes # 1.03 L (1.5-3.5) k/mm3 PT 12.8 H (9.1-10.7) Seconds INR (Anticoag Therapy) 1.24 H (0.92-1.08) INR Potassium 3.1 L D (3.4-4.6) mmol/L Chloride 96 L (97-106) mmol/L Est GFR (Non-Af Amer) 47 L D (60-130) mL/min Random Glucose 137 H (70-110) mg/dL Alkaline Phosphatase 185 H (50-170) U/L B-Natriuretic Peptide 2784 H (5-325) pg/mL Albumin 2.8 L (3.4-5.0) gm/dl Urine Blood (NEGATIVE) /ul 10/20/20 Range/Units 22:12 WBC (4.0-10.5) K/mm3 Hgb (12.5-16.0) gm/dL MCH (27-31) pg MCHC (32-36) g/dl RDW (11.5-14.0) % Immature Gran % (Auto) (0.001-0.429) % Immature Gran # (Auto) (0.000-0.0310) K/mm3 Neutrophils % (42-75.0) % Lymphocytes % (20-51) % Neutrophils # (1.3-6.0) K/mm3 Lymphocytes # (1.5-3.5) k/mm3 PT (9.1-10.7) Seconds INR (Anticoag Therapy) (0.92-1.08) INR Potassium (3.4-4.6) mmol/L Chloride (97-106) mmol/L Est GFR (Non-Af Amer) (60-130) mL/min Random Glucose (70-110) mg/dL Alkaline Phosphatase (50-170) U/L B-Natriuretic Peptide (5-325) pg/mL Albumin (3.4-5.0) gm/dl Urine Blood 25 H (NEGATIVE) /ul Microbiology 10/20/20 22:12 Urine Culture - Preliminary Urine,Catheterized No Growth Laboratory Results WBC 17.4 K/mm3 (4.0-10.5) H 10/20/20 21:59 RBC 4.98 M/mm3 (4.2-5.4) 10/20/20 21:59 Hgb 12.3 gm/dL (12.5-16.0) L 10/20/20 21:59 Hct 41.5 % (37.0-47.0) 10/20/20 21:59 MCV 83.3 fl (78-100) 10/20/20 21:59 MCH 24.7 pg (27-31) L 10/20/20 21:59 MCHC 29.6 g/dl (32-36) L 10/20/20 21:59 RDW 16.2 % (11.5-14.0) H 10/20/20 21:59 Plt Count 387 K/mm3 (150-450) 10/20/20 21:59 MPV 8.5 fl (8-12.5) 10/20/20 21:59 Immature Gran % (Auto) 0.60 % (0.001-0.429) H 10/20/20 21:59 Immature Gran # (Auto) 0.10 K/mm3 (0.000-0.0310) H 10/20/20 21:59 Neutrophils % 87.4 % (42-75.0) H 10/20/20 21:59 Lymphocytes % 5.9 % (20-51) L 10/20/20 21:59 Monocytes % 5.6 % (0.0-9) 10/20/20 21:59 Eosinophils % 0.2 % (0.0-3.0) 10/20/20 21:59 Basophils % 0.3 % (0.0-1.0) 10/20/20 21:59 Nucleated RBC % 0.0 k/mm3 (0-1) 10/20/20 21:59 Neutrophils # 15.2 K/mm3 (1.3-6.0) H 10/20/20 21:59 Lymphocytes # 1.03 k/mm3 (1.5-3.5) L 10/20/20 21:59 Monocytes # 1.0 k/mm3 (0.0-1.0) 10/20/20 21:59 Eosinophils # 0.0 k/mm3 (0.0-0.7) 10/20/20 21:59 Absolute Basophils 0.1 k/mm3 (0.0-0.1) 10/20/20 21:59 PT 12.8 Seconds (9.1-10.7) H 10/20/20 21:59 INR (Anticoag Therapy) 1.24 INR (0.92-1.08) H 10/20/20 21:59 Sodium 135 mmol/L (132-142) 10/20/20 21:59 Plasma Sodium 136 mmol/L (130-142) 10/20/20 21:59 Potassium 3.1 mmol/L (3.4-4.6) L D 10/20/20 21:59 Chloride 96 mmol/L (97-106) L 10/20/20 21:59 Carbon Dioxide 31.6 mmol/L (24-32.6) 10/20/20 21:59 Anion Gap 10.5 mmol/L (6.8-13.8) 10/20/20 21:59 BUN 19 mg/dL (3-23) 10/20/20 21:59 Creatinine 1.22 mg/dL (0.4-1.4) 10/20/20 21:59 Est GFR (Non-Af Amer) 47 mL/min (60-130) L D 10/20/20 21:59 BUN/Creatinine Ratio 15.6 (9.0-21.6) 10/20/20 21:59 Random Glucose 137 mg/dL (70-110) H 10/20/20 21:59 Calcium 9.3 mg/dL (7.9-10.9) 10/20/20 21:59 Calcium Adj for Albumin 9.9 mg/dL (8.4-10.2) 10/20/20 21:59 Magnesium 1.7 mg/dL (1.2-2.8) 10/20/20 21:59 Total Bilirubin 0.5 mg/dL (0.0-1.1) 10/20/20 21:59 AST 16 U/L (0-48) 10/20/20 21:59 ALT 23 U/L (19-67) 10/20/20 21:59 Alkaline Phosphatase 185 U/L (50-170) H 10/20/20 21:59 B-Natriuretic Peptide 2784 pg/mL (5-325) H 10/20/20 21:59 Total Protein 7.3 gm/dL (6.2-8.2) 10/20/20 21:59 Albumin 2.8 gm/dl (3.4-5.0) L 10/20/20 21:59 Urine Color Yellow 10/20/20 22:12 Urine Appearance Clear (CLEAR) 10/20/20 22:12 Urine pH 6.5 pH (5.0-7.0) 10/20/20 22:12 Ur Specific [place] 1.020 SP.GR. (1.005-1.010) 10/20/20 22:12 Urine Protein Negative mg/dL (NEGATIVE) 10/20/20 22:12 Urine Glucose (UA) Negative mg/dL (NEGATIVE) 10/20/20 22:12 Urine Ketones Negative mg/dL (NEGATIVE) 10/20/20 22:12 Urine Blood 25 /ul (NEGATIVE) H 10/20/20 22:12 Urine Nitrate Negative (NEGATIVE) 10/20/20 22:12 Urine Bilirubin Negative mg/dl (NEGATIVE) 10/20/20 22:12 Urine Urobilinogen Normal EU/dl (NORMAL) 10/20/20 22:12 Ur Leukocyte Esterase Negative /ul (NEGATIVE) 10/20/20 22:12 Urine RBC 0-5 /hpf (0-5) 10/20/20 22:12 Urine WBC None seen /hpf (0-5) 10/20/20 22:12 Ur Epithelial Cells None seen /hpf (0-5) 10/20/20 22:12 Urine Bacteria Trace (NONE) 10/20/20 22:12 Urine Culture Comments Culture to follow 10/20/20 22:12 SARS-CoV-2 (PCR) Not detected (NotDetected) 10/20/20 21:35 Assessment/Plan - Narrative Narrative: Gertrude Restrepo is a 65-year-old female who was admitted yesterday for cellulitis left lower extremity unresponsive to outpatient treatment (although she just had 1 day of Bactrim for her left lower extremity but she just finished a 10-day course of antibiotics for her right lower leg cellulitis which just got better the day before). This morning she is afebrile. We will continue her IV Rocephin. If her leg shows more improvement after lunch she and if she remains afebrile she is for probable discharge on oral antibiotics. ADDENDUM: Her K is down to 2.7. Will defer from discharging her. Continue with IV antibiotics. - Assessment/Plan (1) Cellulitis Problem: Acute Qualifiers: (2) Venous insufficiency (chronic) (peripheral) Problem: Chronic (3) Chronic low back pain Problem: Chronic Qualifiers: Back pain laterality: midline Sciatica presence: without sciatica Qualified Code(s): M54.5 - Low back pain; G89.29 - Other chronic pain (4) Peripheral neuropathy Problem: Chronic Qualifiers: Peripheral neuropathy type: polyneuropathy, unspecified Qualified Code(s): G62.9 - Polyneuropathy, unspecified (5) Type II diabetes mellitus Problem: Chronic Qualifiers: Diabetes mellitus mcc insulin use: without ad terminal makeup operator use Diabetes mellitus complication status: with neurologic complications Diabetes mellitus complication detail: with polyneuropathy Qualified Code(s): E11.42 - Type 2 diabetes mellitus with diabetic polyneuropathy (6) Hypothyroidism Problem: Chronic Qualifiers: (7) Failure of outpatient treatment Problem: Resolved (8) HTN (hypertension) Problem: Chronic Qualifiers: (9) FORTINO on CPAP Problem: Chronic (10) Atrial fibrillation Problem: Chronic Qualifiers: (1) Cellulitis Problem: Acute Qualifiers: (2) Venous insufficiency (chronic) (peripheral) Problem: Chronic (3) Chronic low back pain Problem: Chronic Qualifiers: Back pain laterality: midline Sciatica presence: without sciatica Qualified Code(s): M54.5 - Low back pain; G89.29 - Other chronic pain (4) Peripheral neuropathy Problem: Chronic Qualifiers: Peripheral neuropathy type: polyneuropathy, unspecified Qualified Code(s): G62.9 - Polyneuropathy, unspecified (5) Type II diabetes mellitus Problem: Chronic Qualifiers: Diabetes mellitus ad terminal makeup operator insulin use: without mcc use Diabetes mellitus complication status: with neurologic complications Diabetes mellitus complication detail: with polyneuropathy Qualified Code(s): E11.42 - Type 2 diabetes mellitus with diabetic polyneuropathy (6) Hypothyroidism Problem: Chronic Qualifiers: (7) Failure of outpatient treatment Problem: Resolved (8) HTN (hypertension) Problem: Chronic Qualifiers: (9) FORTINO on CPAP Problem: Chronic (10) Atrial fibrillation Problem: Chronic Qualifiers: Results and Findings: Pending Mircobiology Results 10/20/20 22:12 Urine,Catheterized Urine Culture - Preliminary No Growth Lab Pending Results 10/20/20 21:35: SARS-CoV-2 (PCR) Not detected 10/20/20 21:59: WBC 17.4 H, RBC 4.98, Hgb 12.3 L, Hct 41.5, MCV 83.3, MCH 24.7 L, MCHC 29.6 L, RDW 16.2 H, Plt Count 387, MPV 8.5, Immature Gran % (Auto) 0.60 H, Immature Gran # (Auto) 0.10 H, Neutrophils % 87.4 H, Lymphocytes % 5.9 L, Monocytes % 5.6, Eosinophils % 0.2, Basophils % 0.3, Nucleated RBC % 0.0, Neutrophils # 15.2 H, Lymphocytes # 1.03 L, Monocytes # 1.0, Eosinophils # 0.0, Absolute Basophils 0.1 10/20/20 21:59: PT 12.8 H, INR (Anticoag Therapy) 1.24 H 10/20/20 21:59: Sodium 135, Plasma Sodium 136, Potassium 3.1 L D, Chloride 96 L, Carbon Dioxide 31.6, Anion Gap 10.5, BUN 19, Creatinine 1.22, Est GFR (Non-Af Amer) 47 L D, BUN/Creatinine Ratio 15.6, Random Glucose 137 H, Calcium 9.3, Calcium Adj for Albumin 9.9, Magnesium 1.7, Total Bilirubin 0.5, AST 16, ALT 23, Alkaline Phosphatase 185 H, B-Natriuretic Peptide 2784 H, Total Protein 7.3, Albumin 2.8 L 10/20/20 22:12: Urine Color Yellow, Urine Appearance Clear, Urine pH 6.5, Ur Specific [place] 1.020, Urine Protein Negative, Urine Glucose (UA) Negative, Urine Ketones Negative, Urine Blood 25 H, Urine Nitrate Negative, Urine Bilirubin Negative, Urine Urobilinogen Normal, Ur Leukocyte Esterase Negative, Urine RBC 0-5, Urine WBC None seen, Ur Epithelial Cells None seen, Urine Bacteria Trace, Urine Culture Comments Culture to follow Disposition: Home Health Service Condition: Good Referrals: Marko Fatima MD [Primary Care Provider] - Additional Patient Instructions (free text): Resume home health through [facility]- call [phone] with report and fax discharge summary and instructions to . Complete Home Medications List: Complete Home Medication List: cholecalciferol (vitamin D3) 25 mcg (1,000 unit) capsule 1,000 unit PO DAILY #30 cap 03/26/18 Nitroglycerin [Nitrostat] 0.4 mg SL Q5MIN PRN #25 btl 11/08/18 iron 150 mg-vit C 60 mg-folate 1 [id number] tablet 1 tab PO DAILY #30 tab 11/15/19 Gabapentin [Neurontin] 300 mg PO BID 01/18/20 Apixaban [Eliquis] 5 mg PO BID 02/05/20 sitaGLIPtin PHOSPHATE [Januvia] 100 mg PO DAILY 02/05/20 ondansetron 8 mg disintegrating tablet 8 mg PO Q8H PRN #30 tab 02/08/20 naloxone 4 mg/actuation nasal spray 4 mg JOSE Q2M PRN #2 ea 06/13/20 bupropion HCl 150 mg 24 hr tablet, extended release 150 mg PO DAILY #90 tab 07/06/20 duloxetine 60 mg capsule,delayed release 60 mg PO BID #60 cap 07/06/20 metformin 1,000 mg tablet 1,000 mg PO BID #30 tab 07/06/20 metolazone 5 mg tablet 5 mg PO DAILY #30 tab 07/06/20 pramipexole 1 mg tablet 2 mg PO BID #120 tab 07/06/20 simvastatin 40 mg tablet 40 mg PO HS #30 tab 07/06/20 topiramate 100 mg tablet 100 mg PO DAILY #30 tab 07/06/20 nystatin 100,000 unit/gram topical powder 1 applic TP BID #60 g 08/07/20 furosemide 40 mg tablet 40 mg PO Q OTHER DAY #15 tab 08/09/20 metoprolol tartrate 25 mg tablet See Rx Instructions .ROUTE .COMPLEX #60 tab 08/09/20 digoxin 125 mcg (0.125 mg) tablet See Rx Instructions .ROUTE .COMPLEX #30 tab 08/30/20 potassium chloride 10 mEq tablet,extended release(part/cryst) See Rx Instructions .ROUTE .COMPLEX #120 tab 08/30/20 Cholestyramine/Aspartame [Cholestyramine Light Packet] 4 g PO PRN PRN 09/07/20 Sennosides/Docusate Sodium [Senokot-S] 2 tab PO HS #60 tab 09/08/20 aspirin 325 mg tablet 325 mg PO BID 09/12/20 Nasal CPAP See Rx Instructions .ROUTE .MEDSUPPLY #1 ea 09/25/20 latanoprost 0.005 % eye drops 1 drp OP DAILY #2.5 ml 09/25/20 multivitamin 1 tab PO DAILY #1 tab 09/25/20 levothyroxine 200 mcg tablet 200 mcg PO DAILY tab 10/18/20 levothyroxine 25 mcg tablet 25 mcg PO DAILY tab 10/18/20 sulfamethoxazole 800 mg-trimethoprim 160 mg tablet 1 tab PO BID #30 tab 10/19/20
[2020-10-21 09:32] LABS: Hematocrit 37.1 % (37.0-47.0); Hemoglobin 11.1 gm/dL (12.5-16.0); Mean Cell Volume 82.4 fl (78-100); Mean Corpuscular Hemoglobin 24.7 pg (27-31); Mean Corpuscular Hgb Conc 29.9 g/dl (32-36); Mean Platelet Volume 8.7 fl (8-12.5); Neutrophil # 9.7 K/mm3 (1.3-6.0); Platelet Count 320 K/mm3 (150-450); Red Cell Distribution Width 15.9 % (11.5-14.0); White Blood Count 11.5 K/mm3 (4.0-10.5)
[2020-10-21 09:40] LABS: Anion Gap 10.7 mmol/L (6.8-13.8); Estimated Creat Clear 44.4; Potassium 2.7 mmol/L (3.4-4.6)
[2020-10-21] MEDS ORDERED: CHOLESTYRAMINE/ASPARTAME 4 GM PACKET PO PRN (10:36)
[2020-10-21] MEDS ORDERED: NITROGLYCERIN 0.4 MG/TAB BTL SL PRN (10:36)
[2020-10-21] MEDS ORDERED: ONDANSETRON 8 MG TAB.RAPDIS PO PRN (10:36)
[2020-10-21] MEDS: DULoxetine HCL 30 MG CAPSULE.SA PO SCH ×2 (11:33→20:15)
[2020-10-21] MEDS: ACETAMINOPHEN 325 MG TABLET PO PRN (11:33)
[2020-10-21] MEDS: NYSTATIN 15 APPL BTL TP SCH ×2 (11:33→20:16)
[2020-10-21] MEDS: LEVOTHYROXINE SODIUM 100 MCG TABLET PO SCH (11:34)
[2020-10-21] MEDS: LEVOTHYROXINE SODIUM 25 MCG TABLET PO SCH (11:34)
[2020-10-21] MEDS: MULTIVITAMINS 1 CAP CAPSULE PO SCH (11:34)
[2020-10-21] MEDS: GABAPENTIN 300 MG CAPSULE PO SCH ×2 (11:35→20:16)
[2020-10-21] MEDS: IRON POLYSACCHARIDE COMPLEX 1 CAP CAPSULE PO SCH (11:35)
[2020-10-21] MEDS: LATANOPROST 25 DROP BTL OP SCH (11:35)
[2020-10-21] MEDS: CHOLECALCIFEROL 1,000 UNIT CAPSULE PO SCH (11:35)
[2020-10-21] MEDS: METOLAZONE 5 MG TABLET PO SCH (11:35)
[2020-10-21] MEDS: buPROPion HCL 150 MG TAB.SR.24H PO SCH (11:36)
[2020-10-21] MEDS: FUROSEMIDE 40 MG TABLET PO SCH (11:39)
[2020-10-21] MEDS: POTASSIUM CHLORIDE IN WATER 100 ML IV SCH ×2 (14:40→15:57)
--- NOTE | 2020-10-21 18:08 | HP ---
Chief Complaint - Chief Complaint Date of Service: 10/21/20 Chief Complaint: left lef swelling/redness/pain History of Present Illness: Gertrude Restrepo is a 65-year-old white female patient of Dr. Nice with past medical history significant for diabetes mellitus type 2, chronic atrial fibrillation, chronic venous insufficiency, peripheral neuropathy, hypothyroidism, hypertension, hyperlipidemia, obstructive sleep apnea on CPAP, COPD, who was admitted on 10/20/2020 because of increasing swelling and redness and warmth over left lower extremity. She says that the swelling is causing her pain. She had cellulitis of her right lower extremity 1-1/2 weeks ago and her primary care physician started her on antibiotics and she just finished her antibiotic the day before she noticed her left lower extremity starting to get red and swollen. Her primary care physician started her on Bactrim and she said she has been on it for 1 day. It did not give her relief with the increasing swelling, redness and tenderness and so she went to our emergency room. She was also having some fever and chills. She was started on IV Rocephin and vancomycin in the emergency room and was admitted for observation. Her temperature was 38.9 (Tmax). Medical History (Last Reviewed 10/20/20 @ 22:11 by Alvina Patel MD) Painful total knee replacement, left (Chronic) Status post primary as well as revision knee Weakness (Chronic) Cellulitis (Acute) recurrent. Diarrhea in adult patient (Chronic) much improved with addition of cholestyramine powder. Unstable right ankle (Chronic) Unstable left ankle (Chronic) Pain in both feet (Chronic) Fecal incontinence (Chronic) Irritable Bowel Syndrome (Chronic) Iron (Fe) deficiency anemia (Chronic) Congestive heart failure with left ventricular diastolic dysfunction, NYHA class 3 (Chronic) Edema noted on examination (Chronic) Her she has swelling up into the waist area that is palpable. The lower legs are taut and shiny and tender. No cellulitis is present. She is having orthopnea. Her O2 sats however are 97 to 100% on room air while ambulating so she does not qualify for oxygen today. She gets short of breath and just talking and is awakened when she is trying to sleep. She is been wearing her CPAP even when awake trying to get more air at home. I suspect she has significant mesentery edema and probably not really absorbing her p.o. meds very well. Uncontrolled diabetes mellitus with diabetic polyneuropathy (Chronic) Type II diabetes mellitus (Chronic) Fatigue (Chronic) Hypothyroidism (Chronic) Has daytime drowsiness (Chronic) Atrial fibrillation with rapid ventricular response (Chronic) Onychomycosis Onset Date: Unknown Arthritis Onset Date: Unknown Diabetes mellitus, type II Onset Date: Unknown Hyperlipidemia Onset Date: 08/26/16 Hypertension Onset Date: Unknown Hypothyroidism Onset Date: Unknown IBS (irritable bowel syndrome) Onset Date: Unknown Joint pain Onset Date: Unknown Macular degeneration Onset Date: Unknown Thyroid disease Onset Date: Unknown Weakness Onset Date: Unknown Abnormal granulation tissue Onset Date: 08/15/11 Carpal tunnel syndrome Onset Date: Unknown Headache Onset Date: Unknown Rotator cuff tear Onset Date: 2014 left Surgical History: Surgical History (Last Reviewed 10/20/20 @ 22:11 by Alvina Patel MD) S/P shoulder surgery Onset Date: ~09/07/20 OPERATIONS AND PROCEDURES: Right reverse total shoulder arthroplasty. Dr. Robertson excision bone spur bilateral feet 08/03/2018 Dr. Sage H/O arthroscopic knee surgery Onset Date: Unknown Left Dr. Avila 01/04/2004 Right 01/03/2003 H/O dilation and curettage Onset Date: 03/2008 Dr. Campbell H/O neck surgery Onset Date: 2012 cervical disc decompression w/fusion of cervical spinal cord C5-6 H/O shoulder replacement Onset Date: 11/06/15 Dr. Mary History of back surgery Onset Date: Unknown History of carpal tunnel release Onset Date: 2008 Dr. Mary, bilaeral History of cataract removal with insertion of prosthetic lens Onset Date: Unknown 07/12/13 left 08/23/13 right History of colonoscopy Onset Date: 11/18/162007 Dr. Peacock bx negative 11/18/16 Tania, diverticulosis, lucero 10 yrs History of esophagogastroduodenoscopy (EGD) Onset Date: 08/08/99 Tinguely, with biopsy, Gastritis History of hysterectomy Onset Date: Unknown History of laparoscopic appendectomy Onset Date: 05/27/16 Dr. Marin History of local excision of skin lesion Onset Date: 09/14/08 Right upper back, neurofibroma right upper chest, epidermal inclusion cyst History of microdiscectomy Onset Date: 05/29/18 Dr. Hugh Fontenot, [facility]. L4-5. History of total vaginal hysterectomy (TVH) Onset Date: 05/28/11 Dr. Campbell History of tubal ligation Onset Date: 1979 Hx of cholecystectomy Onset Date: 11/18/99 Dr. Augustin Hx of umbilical hernia repair Onset Date: 11/01/99 Dr. Augustin McCabs Culdoplasty Onset Date: 05/28/11 Previous back surgery Onset Date: 06/15/17 Dr. Fontenot, laminectomy on R of L4, w/partial facetectomy laminectomy on right of L5 w/ partial medial facetectomy Rectocele, female Onset Date: Unknown repair S/P YAG capsulotomy, bilateral Onset Date: 02/08/14 Total knee replacement status Onset Date: Unknown Left 02/2008, Right 12/2006 colporrhaphy Onset Date: 05/28/11 Family History: Family History (Last Reviewed 10/20/20 @ 22:11 by Alvina Patel MD) Brother Pancreatitis, Onset Age: 46 Daughter Alive and well Father CVA (cerebral vascular accident), Onset Age: 70 Hypertension Arthritis Grandmother No problems noted. Grandfather No problems noted. Mother Arthritis Hypertension, Onset Age: 85 Sister Heart disease, Onset Age: 70 Sister colon issues Son Alive and well Son No problems noted. Social History: (Last Reviewed 10/20/20 @ 22:11 by Alvina Patel MD) Social History: Marital status: / lives independently: Yes household members: none number of children: 6 current occupational status: retired current occupation: disability Highest level of school completed/degree received: 9th grade Service: No Tobacco: Smoking Status: Current some day smoker tobacco type: cigarettes Smoking cigarettes per day: 1 Tobacco: How many years used: 48 how long ago did patient quit smoking: States smokes about 1 every 3 or 4 days. quit status: has quit before Alcohol: alcohol intake: never Substance Use: substance use type: does not use Dietary Habits: caffeine: Yes caffeine comment: some days, soda Type: carbonated beverages Exercise: frequency: does not exercise Review Of Systems (GEN) - Review of Systems Generalized/Overall Review: Present: Fever. Absent: Chills EENTM: Absent: Blurred Vision Respiratory: Absent: Cough, Shortness of Breath, Orthopnea Cardiac: Present: Edema. Absent: Chest Pain, Palpitations Abdominal: Absent: Nausea, Vomiting, Abdominal Pain Genitourinary: Absent: Urgency, Frequency Musculoskeletal: Present: Joint Pain, Back Pain Neurological: Absent: Headache Skin: Present: Change in Color. Absent: Lesions, Rash Endocrine: Absent: Intolerance to Cold, Intolerance to Heat Misc: All systems neg except as marked Immunizations: IMMUNIZATION HX Immunizations Up to Date Yes History of Influenza Vaccine Yes Hx Pneumococcal Vaccination Yes Allergies/Adverse Reactions: Allergies Allergy/AdvReac Type Severity Reaction Status Date / Time ciprofloxacin HCl Allergy Mild hot and Verified 10/19/20 13:14 [From Cipro] itching cyclobenzaprine AdvReac Severe grogginess/ Verified 10/19/20 13:14 falls pregabalin [From Lyrica] AdvReac Intermediate cellulitis Verified 10/19/20 13:14 Home Medications: HOME MEDICATIONS cholecalciferol (vitamin D3) 25 mcg (1,000 unit) capsule 1,000 unit PO DAILY #30 cap 03/26/18 [Last Taken 11/05/18] Nitroglycerin [Nitrostat] 0.4 mg SL Q5MIN PRN #25 btl 11/08/18 [Last Taken Unknown] iron 150 mg-vit C 60 mg-folate 1 [id number] tablet 1 tab PO DAILY #30 tab 11/15/19 [Last Taken Unknown] Gabapentin [Neurontin] 300 mg PO BID 01/18/20 [Last Taken Unknown] Apixaban [Eliquis] 5 mg PO BID 02/05/20 [Last Taken 09/05/20] sitaGLIPtin PHOSPHATE [Januvia] 100 mg PO DAILY 02/05/20 [Last Taken Unknown] ondansetron 8 mg disintegrating tablet 8 mg PO Q8H PRN #30 tab 02/08/20 [Last Taken Unknown] naloxone 4 mg/actuation nasal spray 4 mg JOSE Q2M PRN #2 ea 06/13/20 [Last Taken Unknown] bupropion HCl 150 mg 24 hr tablet, extended release 150 mg PO DAILY #90 tab 07/06/20 [Last Taken Unknown] duloxetine 60 mg capsule,delayed release 60 mg PO BID #60 cap 07/06/20 [Last Taken Unknown] metformin 1,000 mg tablet 1,000 mg PO BID #30 tab 07/06/20 [Last Taken Unknown] metolazone 5 mg tablet 5 mg PO DAILY #30 tab 07/06/20 [Last Taken Unknown] pramipexole 1 mg tablet 2 mg PO BID #120 tab 07/06/20 [Last Taken Unknown] simvastatin 40 mg tablet 40 mg PO HS #30 tab 07/06/20 [Last Taken Unknown] topiramate 100 mg tablet 100 mg PO DAILY #30 tab 07/06/20 [Last Taken Unknown] nystatin 100,000 unit/gram topical powder 1 applic TP BID #60 g 08/07/20 [Last Taken Unknown] furosemide 40 mg tablet 40 mg PO Q OTHER DAY #15 tab 08/09/20 [Last Taken Unknown] metoprolol tartrate 25 mg tablet See Rx Instructions .ROUTE .COMPLEX #60 tab 08/09/20 [Last Taken Unknown] digoxin 125 mcg (0.125 mg) tablet See Rx Instructions .ROUTE .COMPLEX #30 tab 08/30/20 [Last Taken Unknown] potassium chloride 10 mEq tablet,extended release(part/cryst) See Rx Instructions .ROUTE .COMPLEX #120 tab 08/30/20 [Last Taken Unknown] Cholestyramine/Aspartame [Cholestyramine Light Packet] 4 g PO PRN PRN 09/07/20 [Last Taken Unknown] Sennosides/Docusate Sodium [Senokot-S] 2 tab PO HS #60 tab 09/08/20 [Last Taken Unknown] aspirin 325 mg tablet 325 mg PO BID 09/12/20 [Last Taken Unknown] Nasal CPAP See Rx Instructions .ROUTE .MEDSUPPLY #1 ea 09/25/20 [Last Taken Unknown] latanoprost 0.005 % eye drops 1 drp OP DAILY #2.5 ml 09/25/20 [Last Taken Unknown] multivitamin 1 tab PO DAILY #1 tab 09/25/20 [Last Taken Unknown] levothyroxine 200 mcg tablet 200 mcg PO DAILY tab 10/18/20 [Last Taken Unknown] levothyroxine 25 mcg tablet 25 mcg PO DAILY tab 10/18/20 [Last Taken Unknown] sulfamethoxazole 800 mg-trimethoprim 160 mg tablet 1 tab PO BID #30 tab 10/19/20 [Last Taken Unknown] Exam - Exam Vital Signs: Vital Signs - Last Taken Temp 37.1 C 10/21/20 14:57 Pulse 87 10/21/20 14:57 Resp 15 10/21/20 14:57 BP 132/76 10/21/20 14:57 Pulse Ox 97 10/21/20 14:57 Constitutional: Present: Alert, Oriented x3, Cooperative, Elderly ENT Exam: Present: hearing grossly normal Eye Exam: bilateral eye: normal inspection, PERRL, EOMI Neck: Present: supple. Absent: lymphadenopathy (R), lymphadenopathy (L) Respiratory: Present: decreased breath sounds, No rales, No wheezing Cardiovascular/Chest: Present: no JVD, no murmur, irregularly irregular Abdomen: Present: Normal bowel sounds, soft, nontender, nondistended Extremity: Present: no calf tenderness, lower extremity edema, leg pain, swelling, other - erythematous Skin Exam: Present: warm/dry, other - scabbed area midshin, left leg Diagnostic Studies: Abnormal Lab Results 10/20/20 10/20/20 10/20/20 Range/Units 21:59 21:59 21:59 WBC 17.4 H (4.0-10.5) K/mm3 Hgb 12.3 L (12.5-16.0) gm/dL MCH 24.7 L (27-31) pg MCHC 29.6 L (32-36) g/dl RDW 16.2 H (11.5-14.0) % Immature Gran % (Auto) 0.60 H (0.001-0.429) % Immature Gran # (Auto) 0.10 H (0.000-0.0310) K/mm3 Neutrophils % 87.4 H (42-75.0) % Lymphocytes % 5.9 L (20-51) % Neutrophils # 15.2 H (1.3-6.0) K/mm3 Lymphocytes # 1.03 L (1.5-3.5) k/mm3 ESR (0-15) mm/hr PT 12.8 H (9.1-10.7) Seconds INR (Anticoag Therapy) 1.24 H (0.92-1.08) INR Potassium 3.1 L D (3.4-4.6) mmol/L Chloride 96 L (97-106) mmol/L Est GFR (Non-Af Amer) 47 L D (60-130) mL/min Random Glucose 137 H (70-110) mg/dL Alkaline Phosphatase 185 H (50-170) U/L B-Natriuretic Peptide 2784 H (5-325) pg/mL Albumin 2.8 L (3.4-5.0) gm/dl Urine Blood (NEGATIVE) /ul 10/20/20 10/21/20 10/21/20 Range/Units 22:12 09:27 09:27 WBC 11.5 H D (4.0-10.5) K/mm3 Hgb 11.1 L (12.5-16.0) gm/dL MCH 24.7 L (27-31) pg MCHC 29.9 L (32-36) g/dl RDW 15.9 H (11.5-14.0) % Immature Gran % (Auto) 0.50 H (0.001-0.429) % Immature Gran # (Auto) 0.06 H (0.000-0.0310) K/mm3 Neutrophils % 84.0 H (42-75.0) % Lymphocytes % 7.5 L (20-51) % Neutrophils # 9.7 H (1.3-6.0) K/mm3 Lymphocytes # 0.86 L (1.5-3.5) k/mm3 ESR 84 H (0-15) mm/hr PT (9.1-10.7) Seconds INR (Anticoag Therapy) (0.92-1.08) INR Potassium (3.4-4.6) mmol/L Chloride (97-106) mmol/L Est GFR (Non-Af Amer) (60-130) mL/min Random Glucose (70-110) mg/dL Alkaline Phosphatase (50-170) U/L B-Natriuretic Peptide (5-325) pg/mL Albumin (3.4-5.0) gm/dl Urine Blood 25 H (NEGATIVE) /ul 10/21/20 Range/Units 09:27 WBC (4.0-10.5) K/mm3 Hgb (12.5-16.0) gm/dL MCH (27-31) pg MCHC (32-36) g/dl RDW (11.5-14.0) % Immature Gran % (Auto) (0.001-0.429) % Immature Gran # (Auto) (0.000-0.0310) K/mm3 Neutrophils % (42-75.0) % Lymphocytes % (20-51) % Neutrophils # (1.3-6.0) K/mm3 Lymphocytes # (1.5-3.5) k/mm3 ESR (0-15) mm/hr PT (9.1-10.7) Seconds INR (Anticoag Therapy) (0.92-1.08) INR Potassium 2.7 L (3.4-4.6) mmol/L Chloride (97-106) mmol/L Est GFR (Non-Af Amer) 50 L (60-130) mL/min Random Glucose 253 H D (70-110) mg/dL Alkaline Phosphatase (50-170) U/L B-Natriuretic Peptide (5-325) pg/mL Albumin (3.4-5.0) gm/dl Urine Blood (NEGATIVE) /ul Microbiology 10/20/20 22:12 Urine Culture - Preliminary Urine,Catheterized No Growth Laboratory Results WBC 11.5 K/mm3 (4.0-10.5) H D 10/21/20 09:27 RBC 4.50 M/mm3 (4.2-5.4) 10/21/20 09:27 Hgb 11.1 gm/dL (12.5-16.0) L 10/21/20 09:27 Hct 37.1 % (37.0-47.0) 10/21/20 09:27 MCV 82.4 fl (78-100) 10/21/20 09:27 MCH 24.7 pg (27-31) L 10/21/20 09:27 MCHC 29.9 g/dl (32-36) L 10/21/20 09:27 RDW 15.9 % (11.5-14.0) H 10/21/20 09:27 Plt Count 320 K/mm3 (150-450) 10/21/20 09:27 MPV 8.7 fl (8-12.5) 10/21/20 09:27 Immature Gran % (Auto) 0.50 % (0.001-0.429) H 10/21/20 09:27 Immature Gran # (Auto) 0.06 K/mm3 (0.000-0.0310) H 10/21/20 09:27 Neutrophils % 84.0 % (42-75.0) H 10/21/20 09:27 Lymphocytes % 7.5 % (20-51) L 10/21/20 09:27 Monocytes % 7.0 % (0.0-9) 10/21/20 09:27 Eosinophils % 0.7 % (0.0-3.0) 10/21/20 09:27 Basophils % 0.3 % (0.0-1.0) 10/21/20 09:27 Nucleated RBC % 0.0 k/mm3 (0-1) 10/21/20 09:27 Neutrophils # 9.7 K/mm3 (1.3-6.0) H 10/21/20 09:27 Lymphocytes # 0.86 k/mm3 (1.5-3.5) L 10/21/20 09:27 Monocytes # 0.8 k/mm3 (0.0-1.0) 10/21/20 09:27 Eosinophils # 0.1 k/mm3 (0.0-0.7) 10/21/20 09:27 Absolute Basophils 0.0 k/mm3 (0.0-0.1) 10/21/20 09:27 ESR 84 mm/hr (0-15) H 10/21/20 09:27 PT 12.8 Seconds (9.1-10.7) H 10/20/20 21:59 INR (Anticoag Therapy) 1.24 INR (0.92-1.08) H 10/20/20 21:59 Sodium 136 mmol/L (132-142) 10/21/20 09:27 Plasma Sodium 138 mmol/L (130-142) 10/21/20 09:27 Potassium 2.7 mmol/L (3.4-4.6) L 10/21/20 09:27 Chloride 97 mmol/L (97-106) 10/21/20 09:27 Carbon Dioxide 31.0 mmol/L (24-32.6) 10/21/20 09:27 Anion Gap 10.7 mmol/L (6.8-13.8) 10/21/20 09:27 BUN 15 mg/dL (3-23) 10/21/20 09:27 Creatinine 1.15 mg/dL (0.4-1.4) 10/21/20 09:27 Est GFR (Non-Af Amer) 50 mL/min (60-130) L 10/21/20 09:27 BUN/Creatinine Ratio 13.0 (9.0-21.6) 10/21/20 09:27 Random Glucose 253 mg/dL (70-110) H D 10/21/20 09:27 Calcium 9.0 mg/dL (7.9-10.9) 10/21/20 09:27 Calcium Adj for Albumin 9.9 mg/dL (8.4-10.2) 10/20/20 21:59 Magnesium 1.7 mg/dL (1.2-2.8) 10/20/20 21:59 Total Bilirubin 0.5 mg/dL (0.0-1.1) 10/20/20 21:59 AST 16 U/L (0-48) 10/20/20 21:59 ALT 23 U/L (19-67) 10/20/20 21:59 Alkaline Phosphatase 185 U/L (50-170) H 10/20/20 21:59 B-Natriuretic Peptide 2784 pg/mL (5-325) H 10/20/20 21:59 Total Protein 7.3 gm/dL (6.2-8.2) 10/20/20 21:59 Albumin 2.8 gm/dl (3.4-5.0) L 10/20/20 21:59 Urine Color Yellow 10/20/20 22:12 Urine Appearance Clear (CLEAR) 10/20/20 22:12 Urine pH 6.5 pH (5.0-7.0) 10/20/20 22:12 Ur Specific [place] 1.020 SP.GR. (1.005-1.010) 10/20/20 22:12 Urine Protein Negative mg/dL (NEGATIVE) 10/20/20 22:12 Urine Glucose (UA) Negative mg/dL (NEGATIVE) 10/20/20 22:12 Urine Ketones Negative mg/dL (NEGATIVE) 10/20/20 22:12 Urine Blood 25 /ul (NEGATIVE) H 10/20/20 22:12 Urine Nitrate Negative (NEGATIVE) 10/20/20 22:12 Urine Bilirubin Negative mg/dl (NEGATIVE) 10/20/20 22:12 Urine Urobilinogen Normal EU/dl (NORMAL) 10/20/20 22:12 Ur Leukocyte Esterase Negative /ul (NEGATIVE) 10/20/20 22:12 Urine RBC 0-5 /hpf (0-5) 10/20/20 22:12 Urine WBC None seen /hpf (0-5) 10/20/20 22:12 Ur Epithelial Cells None seen /hpf (0-5) 10/20/20 22:12 Urine Bacteria Trace (NONE) 10/20/20 22:12 Urine Culture Comments Culture to follow 10/20/20 22:12 SARS-CoV-2 (PCR) Not detected (NotDetected) 10/20/20 21:35 Assessment/Plan - Narrative Narrative: Gertrude Restrepo is a 65-year-old female who was admitted yesterday for cellulitis left lower extremity unresponsive to outpatient treatment (although she just had 1 day of Bactrim for her left lower extremity but she just finished a 10-day course of antibiotics for her right lower leg cellulitis which just got better the day before). This morning she is afebrile. We will continue her IV Rocephin. If her leg shows more improvement after lunch she and if she remains afebrile she is for probable discharge on oral antibiotics. ADDENDUM: Her K is down to 2.7. Will defer from discharging her. Continue with IV antibiotics. We will siupplement her K with IV and oral K. - Assessment/Plan (1) Cellulitis Problem: Acute Qualifiers: Site of cellulitis: extremity (2) Venous insufficiency (chronic) (peripheral) Problem: Chronic (3) Chronic low back pain Problem: Chronic Qualifiers: Back pain laterality: midline Sciatica presence: without sciatica Qualified Code(s): M54.5 - Low back pain; G89.29 - Other chronic pain (4) Peripheral neuropathy Problem: Chronic Qualifiers: Peripheral neuropathy type: polyneuropathy, unspecified Qualified Code(s): G62.9 - Polyneuropathy, unspecified (5) Type II diabetes mellitus Problem: Chronic Qualifiers: Diabetes mellitus retirement insulin use: without retirement use Diabetes mellitus complication status: with neurologic complications Diabetes mellitus complication detail: with polyneuropathy Qualified Code(s): E11.42 - Type 2 diabetes mellitus with diabetic polyneuropathy (6) Hypothyroidism Problem: Chronic Qualifiers: (7) Failure of outpatient treatment Problem: Resolved (8) HTN (hypertension) Problem: Chronic Qualifiers: (9) FORTINO on CPAP Problem: Chronic (10) Atrial fibrillation Problem: Chronic Qualifiers:
[2020-10-21] MEDS: APIXABAN 5 MG TABLET PO SCH (20:15)
[2020-10-21] MEDS: PRAMIPEXOLE DI-HCL 0.5 MG TABLET PO SCH (20:16)
[2020-10-21] MEDS: SENNOSIDES/DOCUSATE SODIUM 1 TAB TABLET PO SCH (20:16)
[2020-10-21] MEDS: SIMVASTATIN 40 MG TABLET PO SCH (20:17)
[2020-10-22 06:50] LABS: Hemoglobin 11.2 gm/dL (12.5-16.0); Mean Corpuscular Hemoglobin 24.5 pg (27-31); Mean Corpuscular Hgb Conc 29.5 g/dl (32-36); Mean Platelet Volume 8.9 fl (8-12.5); Neutrophil # 5.5 K/mm3 (1.3-6.0); Neutrophil % 69.4 % (42-75.0); Platelet Count 344 K/mm3 (150-450); Red Blood Count 4.58 M/mm3 (4.2-5.4); Red Cell Distribution Width 16.1 % (11.5-14.0)
[2020-10-22 07:02] LABS: Anion Gap 13.7 mmol/L (6.8-13.8); BUN/Creatinine Ratio 11.4 (9.0-21.6); Calcium * 9.4 mg/dL (7.9-10.9); Carbon Dioxide 28.1 mmol/L (24-32.6); Estimated Creat Clear 44.8; Potassium 2.8 mmol/L (3.4-4.6)
[2020-10-22] MEDS: LEVOTHYROXINE SODIUM 100 MCG TABLET PO SCH (07:55)
[2020-10-22] MEDS: LEVOTHYROXINE SODIUM 25 MCG TABLET PO SCH (07:56)
[2020-10-22] MEDS: IRON POLYSACCHARIDE COMPLEX 1 CAP CAPSULE PO SCH (08:00)
[2020-10-22] MEDS: PRAMIPEXOLE DI-HCL 0.5 MG TABLET PO SCH ×2 (08:01→20:17)
[2020-10-22] MEDS: GABAPENTIN 300 MG CAPSULE PO SCH ×2 (08:01→20:17)
[2020-10-22] MEDS: sitaGLIPtin PHOSPHATE 50 MG TABLET PO SCH (08:01)
[2020-10-22] MEDS: APIXABAN 5 MG TABLET PO SCH ×2 (08:01→20:16)
[2020-10-22] MEDS: DULoxetine HCL 30 MG CAPSULE.SA PO SCH ×2 (08:01→20:15)
[2020-10-22] MEDS: MULTIVITAMINS 1 CAP CAPSULE PO SCH (08:01)
[2020-10-22] MEDS: NYSTATIN 15 APPL BTL TP SCH ×2 (08:02→20:17)
[2020-10-22] MEDS: METOLAZONE 5 MG TABLET PO SCH (08:02)
[2020-10-22] MEDS: CHOLECALCIFEROL 1,000 UNIT CAPSULE PO SCH (08:02)
[2020-10-22] MEDS: buPROPion HCL 150 MG TAB.SR.24H PO SCH (08:02)
[2020-10-22] MEDS: LATANOPROST 25 DROP BTL OP SCH (08:02)
--- NOTE | 2020-10-22 08:51 | PN ---
Subjective - Date and Time Seen Date: 10/22/20 Time: 08:43 Subjective Narrative: Awake alert oriented x3. Afebrile. Has been having on and off cramping. Still hypokalemic. Will change to acute status. Objective - Review of Systems Generalized/Overall Review: Denies: Chills, Fever EENTM: Denies: Blurred Vision Respiratory: Denies: Cough, Shortness of Breath, Orthopnea Cardiac: Denies: Chest Pain, Edema, Palpitations Abdominal: Denies: Nausea, Vomiting Genitourinary Symptoms: Denies: Urgency, Frequency Musculoskeletal Complaints: Reports: Joint Pain, Back Pain, Other - Cramping of her right thigh yesterday Skin: Reports: Other - Erythema less than yesterday - Vitals Vitals: Last Vital Signs Temp 36.6 C 10/22/20 07:00 Pulse 106 H 10/22/20 07:00 Resp 18 10/22/20 07:00 BP 117/71 10/22/20 07:00 Pulse Ox 97 10/22/20 07:00 - Abnormal Lab Findings Abnormal Lab Findings: Abnormal Lab Results 10/21/20 10/21/20 10/21/20 Range/Units 09:27 09:27 09:27 WBC 11.5 H D (4.0-10.5) K/mm3 Hgb 11.1 L (12.5-16.0) gm/dL MCH 24.7 L (27-31) pg MCHC 29.9 L (32-36) g/dl RDW 15.9 H (11.5-14.0) % Immature Gran % (Auto) 0.50 H (0.001-0.429) % Immature Gran # (Auto) 0.06 H (0.000-0.0310) K/mm3 Neutrophils % 84.0 H (42-75.0) % Lymphocytes % 7.5 L (20-51) % Monocytes % (0.0-9) % Eosinophils % (0.0-3.0) % Neutrophils # 9.7 H (1.3-6.0) K/mm3 Lymphocytes # 0.86 L (1.5-3.5) k/mm3 ESR 84 H (0-15) mm/hr Potassium 2.7 L (3.4-4.6) mmol/L Est GFR (Non-Af Amer) 50 L (60-130) mL/min Random Glucose 253 H D (70-110) mg/dL 10/22/20 10/22/20 Range/Units 06:43 06:43 WBC (4.0-10.5) K/mm3 Hgb 11.2 L (12.5-16.0) gm/dL MCH 24.5 L (27-31) pg MCHC 29.5 L (32-36) g/dl RDW 16.1 H (11.5-14.0) % Immature Gran % (Auto) 0.60 H (0.001-0.429) % Immature Gran # (Auto) 0.05 H (0.000-0.0310) K/mm3 Neutrophils % (42-75.0) % Lymphocytes % 16.7 L (20-51) % Monocytes % 9.7 H (0.0-9) % Eosinophils % 3.1 H (0.0-3.0) % Neutrophils # (1.3-6.0) K/mm3 Lymphocytes # 1.33 L (1.5-3.5) k/mm3 ESR (0-15) mm/hr Potassium 2.8 L (3.4-4.6) mmol/L Est GFR (Non-Af Amer) 51 L (60-130) mL/min Random Glucose 214 H (70-110) mg/dL - Exam Constitutional: Present: Alert, Oriented x3, Cooperative ENT Exam: Present: hearing grossly normal Neck: Present: supple. Absent: lymphadenopathy (R), lymphadenopathy (L) Respiratory: Present: decreased breath sounds, No rales, No wheezing Cardiovascular/Chest: Present: no JVD, no murmur, irregularly irregular Abdomen: Present: Normal bowel sounds, soft, nontender, nondistended Extremity: Present: no calf tenderness, lower extremity edema - Decreased significantly from yesterday Skin Exam: Present: warm/dry, other - Less erythematous Assessment/Plan - Problems/Diagnosis (1) Hypokalemia Problem: Acute Narrative: Likely due to her diuretic. We will continue to replenish it and supplement it as she needs to be on her diuretic. (2) Cellulitis Problem: Acute Qualifiers: Site of cellulitis: extremity Narrative: White blood cell count is back to normal. A febrile for over 24 hours. Will likely change her IV antibiotics to oral antibiotics in the morning. (3) Venous insufficiency (chronic) (peripheral) Problem: Chronic (4) Chronic low back pain Problem: Chronic Qualifiers: Back pain laterality: midline Sciatica presence: without sciatica Qualified Code(s): M54.5 - Low back pain; G89.29 - Other chronic pain (5) Peripheral neuropathy Problem: Chronic Qualifiers: Peripheral neuropathy type: polyneuropathy, unspecified Qualified Code(s): G62.9 - Polyneuropathy, unspecified (6) Type II diabetes mellitus Problem: Chronic Qualifiers: Diabetes mellitus alf insulin use: without alf use Diabetes mellitus complication status: with neurologic complications Diabetes mellitus complication detail: with polyneuropathy Qualified Code(s): E11.42 - Type 2 diabetes mellitus with diabetic polyneuropathy (7) Hypothyroidism Problem: Chronic Qualifiers: (8) Failure of outpatient treatment Problem: Resolved (9) HTN (hypertension) Problem: Chronic Qualifiers: (10) FORTINO on CPAP Problem: Chronic (11) Atrial fibrillation Problem: Chronic Qualifiers:
[2020-10-22] MEDS: POTASSIUM CHLORIDE 10 MEQ TABLET.SA PO SCH ×2 (09:22→16:54)
[2020-10-22] MEDS: POTASSIUM CHLORIDE IN WATER 100 ML IV SCH ×2 (09:22→10:45)
[2020-10-22] MEDS: ACETAMINOPHEN 325 MG TABLET PO PRN ×2 (10:46→20:23)
[2020-10-22] MEDS: SIMVASTATIN 40 MG TABLET PO SCH (20:17)
[2020-10-22] MEDS: SENNOSIDES/DOCUSATE SODIUM 1 TAB TABLET PO SCH (20:17)
[2020-10-23] MEDS: LEVOTHYROXINE SODIUM 100 MCG TABLET PO SCH (06:21)
[2020-10-23] MEDS: LEVOTHYROXINE SODIUM 25 MCG TABLET PO SCH (06:21)
[2020-10-23 06:59] LABS: Anion Gap 15.3 mmol/L (6.8-13.8); BUN/Creatinine Ratio 16.5 (9.0-21.6); Calcium * 9.4 mg/dL (7.9-10.9); Carbon Dioxide 28.9 mmol/L (24-32.6); Estimated Creat Clear 49.6; Potassium 3.2 mmol/L (3.4-4.6)
[2020-10-23] MEDS: GABAPENTIN 300 MG CAPSULE PO SCH (08:02)
[2020-10-23] MEDS: MULTIVITAMINS 1 CAP CAPSULE PO SCH (08:02)
[2020-10-23] MEDS: PRAMIPEXOLE DI-HCL 0.5 MG TABLET PO SCH (08:02)
[2020-10-23] MEDS: APIXABAN 5 MG TABLET PO SCH (08:02)
[2020-10-23] MEDS: buPROPion HCL 150 MG TAB.SR.24H PO SCH (08:02)
[2020-10-23] MEDS: POTASSIUM CHLORIDE 10 MEQ TABLET.SA PO SCH (08:03)
[2020-10-23] MEDS: IRON POLYSACCHARIDE COMPLEX 1 CAP CAPSULE PO SCH (08:03)
[2020-10-23] MEDS: CHOLECALCIFEROL 1,000 UNIT CAPSULE PO SCH (08:03)
[2020-10-23] MEDS: DULoxetine HCL 30 MG CAPSULE.SA PO SCH (08:03)
[2020-10-23] MEDS: METOLAZONE 5 MG TABLET PO SCH (08:03)
[2020-10-23] MEDS: sitaGLIPtin PHOSPHATE 50 MG TABLET PO SCH (08:03)
[2020-10-23] MEDS: LATANOPROST 25 DROP BTL OP SCH (08:04)
[2020-10-23] MEDS: NYSTATIN 15 APPL BTL TP SCH (08:04)
[2020-10-23] MEDS: FUROSEMIDE 40 MG TABLET PO SCH (09:48)
--- NOTE | 2020-10-23 12:40 | DS ---
(1) Cellulitis Diagnosis(s): improved. will send home on cefdinir, similar to Rocephin which she is on now. will follow clinically. Problem: Acute Qualifiers: Site of cellulitis: extremity (2) Hypokalemia Diagnosis(s): will send home on a higher potassium dose and recheck level Problem: Acute (3) Atrial fibrillation Problem: Chronic Qualifiers: Atrial fibrillation type: permanent Qualified Code(s): I48.21 - Permanent atrial fibrillation (4) Peripheral neuropathy Problem: Chronic Qualifiers: Peripheral neuropathy type: polyneuropathy, unspecified Qualified Code(s): G62.9 - Polyneuropathy, unspecified (5) Type II diabetes mellitus Problem: Chronic Qualifiers: Diabetes mellitus nurse transition insulin use: without nurse transition use Diabetes mellitus complication status: with neurologic complications Diabetes mellitus complication detail: with polyneuropathy Qualified Code(s): E11.42 - Type 2 diabetes mellitus with diabetic polyneuropathy (6) Venous insufficiency (chronic) (peripheral) Problem: Chronic Date of Discharge:: 10/23/20 Hospital Course: admitted for cellulitis of the left lower leg with fever and failure of outpatient oral antibiotics. improved clinically and with wbc count on Rocephin. low potassium, so supplement dose was increased. chronic a fib so heart rate is variable and a fib is asymptomatic. we will send her home on cefdinir, similar to Rocephin, and watch closely. Procedures Performed: none Results and Findings: Pending Mircobiology Results 10/20/20 22:38 Blood Blood Culture - Preliminary NO GROWTH AFTER 48 HOURS 10/20/20 21:59 Blood Blood Culture - Preliminary NO GROWTH AFTER 48 HOURS Lab Pending Results 10/20/20 21:35: SARS-CoV-2 (PCR) Not detected 10/20/20 21:59: WBC 17.4 H, RBC 4.98, Hgb 12.3 L, Hct 41.5, MCV 83.3, MCH 24.7 L, MCHC 29.6 L, RDW 16.2 H, Plt Count 387, MPV 8.5, Immature Gran % (Auto) 0.60 H, Immature Gran # (Auto) 0.10 H, Neutrophils % 87.4 H, Lymphocytes % 5.9 L, Monocytes % 5.6, Eosinophils % 0.2, Basophils % 0.3, Nucleated RBC % 0.0, Neutrophils # 15.2 H, Lymphocytes # 1.03 L, Monocytes # 1.0, Eosinophils # 0.0, Absolute Basophils 0.1 10/20/20 21:59: PT 12.8 H, INR (Anticoag Therapy) 1.24 H 10/20/20 21:59: Sodium 135, Plasma Sodium 136, Potassium 3.1 L D, Chloride 96 L, Carbon Dioxide 31.6, Anion Gap 10.5, BUN 19, Creatinine 1.22, Est GFR (Non-Af Amer) 47 L D, BUN/Creatinine Ratio 15.6, Random Glucose 137 H, Calcium 9.3, Calcium Adj for Albumin 9.9, Magnesium 1.7, Total Bilirubin 0.5, AST 16, ALT 23, Alkaline Phosphatase 185 H, B-Natriuretic Peptide 2784 H, Total Protein 7.3, Albumin 2.8 L 10/20/20 22:12: Urine Color Yellow, Urine Appearance Clear, Urine pH 6.5, Ur Specific [place] 1.020, Urine Protein Negative, Urine Glucose (UA) Negative, Urine Ketones Negative, Urine Blood 25 H, Urine Nitrate Negative, Urine Bilirubin Negative, Urine Urobilinogen Normal, Ur Leukocyte Esterase Negative, Urine RBC 0-5, Urine WBC None seen, Ur Epithelial Cells None seen, Urine Bacteria Trace, Urine Culture Comments Culture to follow 10/21/20 09:27: WBC 11.5 H D, RBC 4.50, Hgb 11.1 L, Hct 37.1, MCV 82.4, MCH 24.7 L, MCHC 29.9 L, RDW 15.9 H, Plt Count 320, MPV 8.7, Immature Gran % (Auto) 0.50 H, Immature Gran # (Auto) 0.06 H, Neutrophils % 84.0 H, Lymphocytes % 7.5 L, Monocytes % 7.0, Eosinophils % 0.7, Basophils % 0.3, Nucleated RBC % 0.0, Neutrophils # 9.7 H, Lymphocytes # 0.86 L, Monocytes # 0.8, Eosinophils # 0.1, Absolute Basophils 0.0 10/21/20 09:27: ESR 84 H 10/21/20 09:27: Sodium 136, Plasma Sodium 138, Potassium 2.7 L, Chloride 97, Carbon Dioxide 31.0, Anion Gap 10.7, BUN 15, Creatinine 1.15, Est GFR (Non-Af Amer) 50 L, BUN/Creatinine Ratio 13.0, Random Glucose 253 H D, Calcium 9.0 10/22/20 06:43: WBC 8.0 D, RBC 4.58, Hgb 11.2 L, Hct 38.0, MCV 83.0, MCH 24.5 L, MCHC 29.5 L, RDW 16.1 H, Plt Count 344, MPV 8.9, Immature Gran % (Auto) 0.60 H, Immature Gran # (Auto) 0.05 H, Neutrophils % 69.4, Lymphocytes % 16.7 L, Monocytes % 9.7 H, Eosinophils % 3.1 H, Basophils % 0.5, Nucleated RBC % 0.0, Neutrophils # 5.5, Lymphocytes # 1.33 L, Monocytes # 0.8, Eosinophils # 0.3, Absolute Basophils 0.0 10/22/20 06:43: Sodium 137, Plasma Sodium 139, Potassium 2.8 L, Chloride 98, Carbon Dioxide 28.1, Anion Gap 13.7, BUN 13, Creatinine 1.14, Est GFR (Non-Af Amer) 51 L, BUN/Creatinine Ratio 11.4, Random Glucose 214 H, Calcium 9.4 10/23/20 06:35: Sodium 141, Plasma Sodium 142, Potassium 3.2 L, Chloride 100, Carbon Dioxide 28.9, Anion Gap 15.3 H, BUN 17, Creatinine 1.03, Est GFR (Non-Af Amer) 57 L, BUN/Creatinine Ratio 16.5, Random Glucose 175 H, Calcium 9.4 Discharge Location: Home Disposition: Home Health Service Home Health Agency: Other - continue with the service she already has Condition: Good Discharge Activity: Activity as tolerated Discharge Diet: Consistent carbs, Low salt Referrals: Marko Fatima MD [Primary Care Provider] - Additional Patient Instructions (free text): Resume home health through [facility]- call [phone] with report and fax discharge summary and instructions to . call for problems or questions. CBC, BMP and office visit with Dr. Nice in 5 days. Complete Home Medications List: Complete Home Medication List: cholecalciferol (vitamin D3) 25 mcg (1,000 unit) capsule 1,000 unit PO DAILY #30 cap 03/26/18 Nitroglycerin [Nitrostat] 0.4 mg SL Q5MIN PRN #25 btl 11/08/18 iron 150 mg-vit C 60 mg-folate 1 [id number] tablet 1 tab PO DAILY #30 tab 11/15/19 Gabapentin [Neurontin] 300 mg PO BID 01/18/20 Apixaban [Eliquis] 5 mg PO BID 02/05/20 sitaGLIPtin PHOSPHATE [Januvia] 100 mg PO DAILY 02/05/20 ondansetron 8 mg disintegrating tablet 8 mg PO Q8H PRN #30 tab 02/08/20 naloxone 4 mg/actuation nasal spray 4 mg JOSE Q2M PRN #2 ea 06/13/20 bupropion HCl 150 mg 24 hr tablet, extended release 150 mg PO DAILY #90 tab 07/06/20 duloxetine 60 mg capsule,delayed release 60 mg PO BID #60 cap 07/06/20 metformin 1,000 mg tablet 1,000 mg PO BID #30 tab 07/06/20 metolazone 5 mg tablet 5 mg PO DAILY #30 tab 07/06/20 pramipexole 1 mg tablet 2 mg PO BID #120 tab 07/06/20 simvastatin 40 mg tablet 40 mg PO HS #30 tab 07/06/20 topiramate 100 mg tablet 100 mg PO DAILY #30 tab 07/06/20 nystatin 100,000 unit/gram topical powder 1 applic TP BID #60 g 08/07/20 furosemide 40 mg tablet 40 mg PO Q OTHER DAY #15 tab 08/09/20 metoprolol tartrate 25 mg tablet See Rx Instructions .ROUTE .COMPLEX #60 tab 08/09/20 digoxin 125 mcg (0.125 mg) tablet See Rx Instructions .ROUTE .COMPLEX #30 tab 08/30/20 potassium chloride 10 mEq tablet,extended release(part/cryst) See Rx Instructions .ROUTE .COMPLEX #120 tab 08/30/20 Cholestyramine/Aspartame [Cholestyramine Light Packet] 4 g PO PRN PRN 09/07/20 Sennosides/Docusate Sodium [Senokot-S] 2 tab PO HS #60 tab 09/08/20 aspirin 325 mg tablet 325 mg PO BID 09/12/20 Nasal CPAP See Rx Instructions .ROUTE .MEDSUPPLY #1 ea 09/25/20 latanoprost 0.005 % eye drops 1 drp OP DAILY #2.5 ml 09/25/20 multivitamin 1 tab PO DAILY #1 tab 09/25/20 levothyroxine 200 mcg tablet 200 mcg PO DAILY tab 10/18/20 levothyroxine 25 mcg tablet 25 mcg PO DAILY tab 10/18/20 sulfamethoxazole 800 mg-trimethoprim 160 mg tablet 1 tab PO BID #30 tab 10/19/20 Cefdinir 300 mg PO BID #20 capsule 10/23/20 Forms: Patient Portal Registration
[2020-10-23 15:26] VITALS: BP 123/59
== END 2020-10-23 14:20 | disposition home health service (06) | DRG 641 ==
LOC: MS 20:57 → ER 20:57 → MS 23:25
PROVIDERS: ADMIT Internal Medicine; ATTEND Allergy & Immunology
DX: E11.51 Type 2 diabetes mellitus with diabetic peripheral angiopathy without gangrene; G89.29 Other chronic pain; E03.9 Hypothyroidism, unspecified; L03.116 Cellulitis of left lower limb; E78.5 Hyperlipidemia, unspecified; M54.5 Low back pain; E87.6 Hypokalemia; G47.33 Obstructive sleep apnea (adult) (pediatric); I11.0 Hypertensive heart disease with heart failure; I48.20 Chronic atrial fibrillation, unspecified; J44.9 Chronic obstructive pulmonary disease, unspecified; I50.9 Heart failure, unspecified; I87.2 Venous insufficiency (chronic) (peripheral)